=== PATIENT | female | born 1935 | race Caucasian/White ===

== ENCOUNTER 2018-09-10 21:07 | Inpatient (IN) | payer MEDICARE, OTHER ==
[~2018-09-10] VITALS: Ht 167.6 cm; Wt 50.4 kg
[~2018-09-10 21:07] MED LIST: ASPIRIN81 M1; BETOPTIC S10 ML; LABETALOL HCL100 MG; LIPITOR20 MG; OSTERA TABLET1 EACH; PAXIL; SEROQUEL25 MG; STALEVO 100 TAB1 TAB; SYNTHROID25 MCG; XALATAN2.5 ML; ZOFRAN8 MG
--- OUTSIDE RECORDS SUMMARY | 2018-09-10 21:10 | XMS REPORT | Clinical Summary ---
Author Author [facility] Organization [facility] Address Unknown Phone Unavailable Care Team Providers Care Water Mangle Tender Name Role Phone Ike De Leon MD PCP Unavailable Allergies Active Allergy Reactions Severity Noted Date Comments Artane 07/02/2016 Codeine GI Intolerance 04/14/2016 Current Medications Prescription Sig. Disp. Refills Start End Date Status Date brinzolamide (AZOPT) 1 % 1 drop 3 (three) times a Active ophthalmic suspension day. latanoprost (XALATAN) Administer 1 drop to both Active 0.005 % ophthalmic eyes 2 (two) times a day. solution loratadine (CLARITIN) 10 Take 10 mg by mouth Active mg tablet daily. QUEtiapine (SEROquel) 25 Take 25 mg by mouth 2 Active MG tablet (two) times a day. docusate sodium (COLACE) Take by mouth 2 (two) Active 50 MG capsule times a day. POLYETHYLENE GLYCOL 3350 Take 15 mL by mouth daily Active (MIRALAX ORAL) before breakfast. trimethobenzamide (TIGAN) Take 1 capsule po 2-3 270 capsule 3 12/11/19 Active 300 mg capsule times daily 17 PYRIDOXINE HCL, VITAMIN Take 1 tablet by mouth Active B6, (VITAMIN B-6 ORAL) daily. Strength states 2500 units. VITAMIN B COMPLEX ORAL Take 1 tablet by mouth 2 Active (two) times a day. ondansetron (ZOFRAN) 8 MG Take 8 mg by mouth daily. Active tablet dextromethorphan-quinidin Take 1 capsule by mouth 2 180 capsule 3 03/04/20 Active e (NUEDEXTA) 20-10 mg (two) times a day. 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 Please 1 each 0 03/19/20 Active provide with custom 18 wheelchair to allow for frequent position changes carbidopa-levodopa Take 1 tablet by mouth 4 360 tablet 3 03/19/20 03/19/20 Active (SINEMET) 25-100 mg per (four) times a day. 18 19 tablet cholecalciferol, vitamin Take 1 tablet (1,000 90 tablet 3 03/26/20 03/26/20 Active D3, (VITAMIN D3) 1,000 Units total) by mouth 18 19 unit tablet daily. clonAZEPAM (KlonoPIN) 0.5 Take 1 tablet (0.5 mg 180 tablet 0 04/21/20 Active MG tablet total) by mouth 2 (two) 18 times a day as needed for anxiety for up to 90 days. PARoxetine CR (PAXIL-CR) Take 1 tablet (25 mg 90 tablet 3 05/13/20 05/13/20 Active 25 MG 24 hr tablet total) by mouth every 18 19 morning. COUMADIN 1 mg tablet Take 2 tablets (2 mg 180 tablet 2 08/04/20 Active total) by mouth daily. 18 omeprazole (PriLOSEC) 20 Take 1 capsule (20 mg 270 capsule 2 08/04/20 Active MG capsule total) by mouth 3 (three) 18 times a day. levothyroxine (SYNTHROID, Take 1 tablet (25 mcg 90 tablet 2 08/04/20 Active LEVOXYL) 25 mcg tablet total) by mouth every 18 morning. pimavanserin (NUPLAZID) Take 2 tablets (34 mg 60 tablet 6 08/30/20 Active 17 mg tablet tablet total) by mouth daily. 18 PIMAVANSERIN TARTRATE Take 34 mg by mouth 08/30/20 Discontin (NUPLAZID ORAL) daily. 18 ued COUMADIN 1 mg tablet Take 2 tablets (2 mg 180 tablet 3 09/22/20 08/04/20 Discontin total) by mouth daily. 16 18 ued dextromethorphan-quinidin Take 1 capsule by mouth 2 180 capsule 5 01/05/20 03/04/20 Discontin e (NUEDEXTA) 20-10 mg (two) times a day. 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 clonAZEPAM (KlonoPIN) 0.5 Take 1 tablet (0.5 mg 180 tablet 0 05/06/20 10/23/20 Discontin MG tablet total) by mouth 2 (two) 17 17 ued times a day as needed for anxiety for up to 90 days. levothyroxine (SYNTHROID, Take 1 tablet (25 mcg 90 tablet 3 05/13/20 12/23/19 Discontin LEVOXYL) 25 mcg tablet total) by mouth every 17 18 ued morning. cholecalciferol (VITAMIN Take 1 capsule (10,000 24 capsule 3 05/14/20 10/07/20 Discontin D3) 10,000 unit capsule Units total) by mouth 2 17 17 ued (two) times a week. UNABLE TO FIND nudexta / twice a day 10/07/20 Discontin 17 ued ciclopirox (PENLAC) 8 % Apply topically nightly. 3 Bottle 3 06/10/20 06/10/20 solutionIndications: 17 18 Onychomycosis of toenail omeprazole (PriLOSEC) 20 Take 20 mg by mouth 2 03/26/20 Discontin MG capsule (two) times a day. 18 ued carbidopa-levodopa Take 1 tablet by mouth 3 270 tablet 3 07/20/20 12/08/19 Discontin (SINEMET) 25-100 mg per (three) times a day. 17 18 ued tablet clonAZEPAM (KlonoPIN) 0.5 Take 1 tablet (0.5 mg 180 tablet 0 10/23/20 04/21/20 Discontin MG tablet total) by mouth 2 (two) 17 18 ued times a day as needed for anxiety for up to 90 days. carbidopa-levodopa Take 1 tablet by mouth 4 40 tablet 0 12/08/19 03/19/20 Discontin (SINEMET) 25-100 mg per (four) times a day. 18 18 ued tablet levothyroxine (SYNTHROID, Take 1 tablet (25 mcg 15 tablet 0 12/23/19 01/31/20 Discontin LEVOXYL) 25 mcg tablet total) by mouth every 18 18 ued morning. levothyroxine (SYNTHROID, Take 1 tablet (25 mcg 15 tablet 0 02/01/20 08/04/20 Discontin LEVOXYL) 25 mcg tablet total) by mouth every 18 18 ued morning. wheelchair device 1 Units daily. 1 each 0 03/19/20 03/19/20 Discontin 18 18 ued warfarin (COUMADIN) 1 MG Take 1 tablet (1 mg 90 tablet 1 03/23/20 08/04/20 Discontin tablet total) by mouth daily. 18 18 ued omeprazole (PriLOSEC) 20 Take 1 capsule (20 mg 180 capsule 3 03/26/20 08/04/20 Discontin MG capsule total) by mouth 2 (two) 18 18 ued times a day. nitrofurantoin, Take 1 capsule (100 mg 14 capsule 0 05/03/20 05/10/20 macrocrystal-monohydrate, total) by mouth 2 (two) 18 18 (MACROBID) 100 MG capsule times a day for 7 days. nitrofurantoin Take 1 capsule (100 mg 14 capsule 0 06/18/20 06/25/20 (MACRODANTIN) 100 MG total) by mouth 2 (two) 18 18 capsule times a day for 7 days. cephalexin (KEFLEX) 500 Take 1 capsule (500 mg 20 capsule 0 06/27/20 07/07/20 MG capsule total) by mouth 2 (two) 18 18 times a day for 10 days. nitrofurantoin Take 1 capsule (100 mg 14 capsule 0 08/03/20 08/10/20 (MACRODANTIN) 100 MG total) by mouth 2 (two) 18 18 capsule times a day for 7 days. Active Problems Problem Noted Date Other dysphagia 03/19/2018 Decubitus ulcer of right upper back, stage 2 12/23/2017 Decubitus ulcer of right elbow, stage 1 12/23/2017 Chronic pain of right ankle 09/25/2017 Syncope 07/14/2017 Onychomycosis of toenail 06/10/2017 Decubitus ulcer of left buttock, stage 2 05/13/2017 Chronic atrial fibrillation (HCC) 03/06/2017 Wheelchair bound 10/16/2016 Long-term (current) use of anticoagulants 09/22/2016 Dementia 08/21/2016 Psychosis (HCC) 08/21/2016 Parkinson's disease (HCC) 08/21/2016 Dysphagia 08/21/2016 Visual hallucinations 08/21/2016 Weight loss 04/14/2016 Visual problems 04/14/2016 Anxiety 04/14/2016 Depression 04/14/2016 Heat intolerance 04/14/2016 Cold intolerance 04/14/2016 Indigestion 04/14/2016 Nausea 04/14/2016 Parkinson's disease dementia (HCC) 04/14/2016 Encounters Date Type Specialty Care Team Description 09/09/2018 Telephone Sports Medicine Nelida Curry MA 08/30/2018 Telephone Neurology Sapna Brown MD 08/18/2018 Office Visit Ike Shell MD 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) (Primary Dx); Chronic atrial fibrillation (HCC) 08/05/2018 Telephone Sports Medicine Ricci Rush MA 08/04/2018 Refill Ike Shell MD 08/03/2018 Telephone Sports Nelida Heredia MA 08/03/2018 Orders Only Ike Shell MD 08/02/2018 Orders Only Ike Shell MD Abnormal urine (Primary Dx) 07/21/2018 Office Visit Ike Shell MD Dementia due to Parkinson's disease with behavioral disturbance (Primary Dx); Long-term (current) use of anticoagulants 07/14/2018 Telephone Sports Ricci Britt MA 06/27/2018 Documentation Ike Shell MD 06/25/2018 Telephone Sports Medicine Nelida Curry MA 06/25/2018 Telephone Sports Nelida Heredia MA 06/24/2018 Telephone Neurology Sapna Brown MD 06/22/2018 Telephone Sports Nelida Heredia MA 06/18/2018 Orders Only Ike Shell MD 06/17/2018 Office Visit Ike Shell MD Fever, unspecified fever cause (Primary Dx); Dementia due to Parkinson's disease with behavioral disturbance 05/21/2018 Office Visit Ike Shell MD Dementia due to Parkinson's disease with behavioral disturbance (Primary Dx) 05/13/2018 Orders Only Ike Shell MD 05/05/2018 Hospital Radiology Ike De Leon MD Other dysphagia Encounter 05/03/2018 Documentation Ike Shell MD 05/03/2018 Orders Only Ike Shell MD Dysuria (Primary Dx) 04/30/2018 Telephone Sports Medicine Nelida Curry, [place] 04/23/2018 Office Visit Sports Ike Gold MD Dementia due to Parkinson's disease with behavioral disturbance (Primary Dx); Primary hypothyroidism 04/21/2018 Refill Sports Medicine Ricci Rush, RAIZA 03/26/2018 Orders Only Ike Shell MD 03/23/2018 Refill Sports Medicine Nelida Curry [place] 03/19/2018 Office Visit Sports Ike Gold MD Other dysphagia (Primary Dx); Dementia due to Parkinson's disease with behavioral disturbance 03/19/2018 Orders Only Ike Shell MD 03/10/2018 Office Visit Neurology Sapna Brown MD Parkinson's disease (Primary Dx); Dementia due to Parkinson's disease without behavioral disturbance; Visual hallucinations 03/04/2018 Documentation Ike Shell MD 02/01/2018 Telephone Neurology Sapna Brown MD 01/30/2018 Refill Ike Shell MD 01/15/2018 Office Visit Ike Shell MD Dementia due to Parkinson's disease with behavioral disturbance (Primary Dx); Decubitus ulcer of right upper back, stage 2; Decubitus ulcer of right elbow, stage 1 12/23/2017 Office Visit Ike Shell MD Dementia due to Parkinson's disease with behavioral disturbance (Primary Dx); Decubitus ulcer of left buttock, stage 2; Decubitus ulcer of right upper back, stage 2; Decubitus ulcer of right elbow, stage 1 12/08/2017 Orders Only Ike Shell MD 12/03/2017 Telephone Sports Medicine Nelida Curry, [place] 11/23/2017 Office Visit Ike Shell MD Dementia due to Parkinson's disease with behavioral disturbance (Primary Dx); Chronic atrial fibrillation; Decubitus ulcer of left buttock, stage 2 10/23/2017 Office Visit Ike Shell MD Dementia due to Parkinson's disease with behavioral disturbance (Primary Dx); Chronic atrial fibrillation 10/23/2017 Orders Only Ike Shell MD 10/07/2017 Office Visit Neurology Sapna Brown MD Parkinson's disease (Primary Dx); Dementia due to Parkinson's disease without behavioral disturbance; Visual hallucinations 09/25/2017 Office Visit Sports Ike Gold MD Dementia due to Parkinson's disease with behavioral disturbance (Primary Dx); Chronic atrial fibrillation; Chronic pain of right ankle after 09/09/2017 Immunizations Name Dates Previously Given Next Due Influenza, Unspecified 11/09/2013 Pneumococcal, Unspecified 11/09/2012 Family History Medical History Relation Name Comments Heart disease Father Anxiety disorder Mother Relation Name Status Comments Father Mother Social History Tobacco Use Types Packs/Day Years Used Date Never Smoker Smokeless Tobacco: Never Used Comments: non smoker Alcohol Use Drinks/Week oz/Week Comments No none Sex Assigned at Date Recorded Not on file Last Filed Vital Signs Vital Sign Reading Time Taken Blood Pressure 128/66 07/21/2018 1:17 PM CDT Pulse 72 07/21/2018 1:17 PM CDT Temperature 36.7 C (98 F) 07/21/2018 1:17 PM CDT Respiratory Rate 20 08/18/2018 1:05 PM CDT Oxygen Saturation - - Inhaled Oxygen - - Concentration Weight 54.8 kg (120 lb 12.8 oz) 03/10/2018 12:55 PM CDT Height - - Body Mass Index 17.84 03/10/2018 12:55 PM CDT Plan of Treatment Date Type Specialty Care Team Description 09/15/2018 [place] [address] [place] [address] 09/16/2018 Office Visit Neurology Sapna Brown MD [address] [facility] [address] [place] [address] Health Maintenance Due Date Last Done Comments SHINGRIX VACCINE (#1) 1984 ZOSTER VACCINE 1994 PNEUMOCOCCAL 1999 POLYSACCHARIDE VACCINE AGE 65 AND OVER PNEUMOCOCCAL-13 1999 INFLUENZA VACCINE 06/09/2018 11/09/2013 Procedures Procedure Name Priority Date/Time Associated Diagnosis Comments URINALYSIS, AUTOMATED Routine 08/02/2018 Abnormal urine Results for this WITH MICROSCOPY 11:49 AM CDT procedure are in the results section. URINE CULTURE Routine 08/02/2018 Abnormal urine Results for this 11:49 AM CDT procedure are in the results section. MICROSCOPIC EXAMINATION Routine 06/17/2018 Results for this 3:28 PM CDT procedure are in the results section. URINALYSIS, AUTOMATED Routine 06/17/2018 Fever, unspecified fever Results for this WITH MICROSCOPY 3:28 PM CDT cause procedure are in the results section. URINE CULTURE Routine 06/17/2018 Fever, unspecified fever Results for this 3:24 PM CDT cause procedure are in the results section. FL MODIFIED BARIUM Routine 05/05/2018 Other dysphagia Results for this SWALLOW 1:35 PM CDT procedure are in the results section. URINALYSIS, AUTOMATED STAT 05/03/2018 Dysuria Results for this WITH MICROSCOPY 3:22 PM CDT procedure are in the results section. URINE CULTURE Routine 05/03/2018 Dysuria Results for this 3:22 PM CDT procedure are in the results section. after 09/09/2017 Results * Urinalysis, automated with microscopy (08/02/2018 11:49 AM) Only the most recent of 3 results within the time period is included. Color, UA YELLOW YELLOW [facility] [place] Appearance TURBID (A) CLEAR [facility] Specific gravity, urine 1.025 1.001 - 1.035 [facility] [place] pH, urine 5.5 5.0 - 8.0 [facility] [place] Glucose, urine NEGATIVE NEGATIVE [facility] [place] Bilirubin, UA NEGATIVE NEGATIVE [facility] [place] Ketones, UA NEGATIVE NEGATIVE [facility] [place] Occult blood, urine NEGATIVE NEGATIVE [facility] [place] Protein, UA NEGATIVE NEGATIVE [facility] [place] Nitrite, UA NEGATIVE NEGATIVE [facility] [place] Leukocyte esterase, UA 3+ (A) NEGATIVE [facility] [place] WBC, UA > OR=60 (A) < OR=5 /HPF [facility] [place] RBC, UA 0-2 < OR=2 /HPF [facility] [place] Squamous epithelial 6-10 (A) < OR=5 /HPF [facility] cells, UA [place] Bacteria, UA MANY (A) NONE SEEN /HPF [facility] [place] Hyaline casts, UA 0-1 (A) NONE SEEN /LPF [facility] [place] Comment FEW MUCOUS THREADS [facility] [place] Specimen Urine Narrative Performed At FASTING:NO [facility] FASTING: NO Other Results Text Performing Organization Information: Site ID: [id number] Name: [facility] Address: [address] [place] [phone] Director: Kathy Damon Performing Organization Address [facility] Phone Number [facility] [place] [address] [place] [place] [phone] * Urine culture (08/02/2018 11:49 AM) Only the most recent of 3 results within the time period is included. Urine culture SEE NOTE (A) [facility] Comment: [place] CULTURE, URINE, ROUTINE MICRO NUMBER:[id number] TEST STATUS: FINAL SPECIMEN SOURCE: URINE SPECIMEN QUALITY:ADEQUATE RESULT: Greater than 100,000 CFU/mL of Escherichia coli E.coli -------- -------- INT KT AMOX/CLAVULANATE S <=2 AMPICILLIN S 4 AMP/SULBACTAM S <=2 CEFAZOLIN NR<=4 2 CEFEPIME S <=1 CEFTRIAXONE S <=1 CIPROFLOXACIN R >=4 GENTAMICIN S <=1 IMIPENEM S <=0.25 LEVOFLOXACIN R >=8 NITROFURANTOIN S <=16 PIP/TAZOBACTAM S <=4 TOBRAMYCIN S <=1 TRIMETHOPRIM/SULFA S <=20 S=SusceptibleI=Intermediat eR=Resistant*=Not Tested NR=Not ReportedNN=See Therapy Comments THERAPY COMMENTS Note 1: For infections other than uncomplicated UTI caused by E. coli, K. pneumoniae or P. mirabilis: Cefazolin is resistant if KT > or=8 mcg/mL. (Distinguishing susceptible versus intermediate for isolates with KT < or=4 mcg/mL requires additional testing.) Note 2: For uncomplicated UTI caused by E. coli, K. pneumoniae or P. mirabilis: Cefazolin is susceptible if KT <32 mcg/mL and predicts susceptible to the oral agents cefaclor, cefdinir, cefpodoxime, cefprozil, cefuroxime, cephalexin and loracarbef. Specimen Urine Narrative Performed At FASTING:NO [facility] FASTING: NO Other Results Text Performing Organization Information: Site ID: [id number] Name: [facility] Address: [address] [place] [phone] Director: Kathy Damon Performing Organization Address [facility] Phone Number [facility] [place] [address] [place] [place] [phone] * Microscopic Examination (06/17/2018 3:28 PM) WBC, UA 6-10 (A) 0 - 5 /hpf [facility] RBC, UA 0-2 0 - 2 /hpf [facility] Epithelial cells (non 0-10 0 - 10 /hpf [facility] renal) Mucus, UA Present Not Estab. [facility] Bacteria, UA Few None seen/Few [facility] Narrative Performed At Performed at:01 - [facility] [address], [id number] Computing Services Director: Ranjit Tracey MD, Phone:[phone] Performing Organization Address [facility] Phone Number [facility] * FL Modified Barium Swallow (05/05/2018 1:35 PM) Narrative Performed At EXAMINATION:[place] MODIFIED BARIUM SWALLOW [facility] CLINICAL HISTORY:R13.19 Other dysphagia, evaluate for risk of aspiration COMPARISON:None. Radiation dose: 13.8 mGy FINDINGS: The patient swallowed varying consistencies of barium under direct lateral fluoroscopic evaluation. The study was performed in conjunction with speech pathology. IMPRESSION: Thin, nectar and pudding consistency barium was administered. Patient had some difficulty with oral phase of swallowing and bolus formation and ingested small amounts of barium. There was subepiglottic penetration of thin and nectar consistency barium. There was a minimal residual contrast along the anterior wall. There was no aspiration. Please refer to Speech Pathology report for further details. [facility]-[id number] Procedure Note Interface, Radiology Results Incoming - 05/05/2018 3:36 PM CDT EXAMINATION: FL MODIFIED BARIUM SWALLOW CLINICAL HISTORY: R13.19 Other dysphagia, evaluate for risk of aspiration COMPARISON: None. Radiation dose: 13.8 mGy FINDINGS: The patient swallowed varying consistencies of barium under direct lateral fluoroscopic evaluation. The study was performed in conjunction with speech pathology. IMPRESSION: Thin, nectar and pudding consistency barium was administered. Patient had some difficulty with oral phase of swallowing and bolus formation and ingested small amounts of barium. There was subepiglottic penetration of thin and nectar consistency barium. There was a minimal residual contrast along the anterior wall. There was no aspiration. Please refer to Speech Pathology report for further details. [facility]-[id number] Performing Organization Address [facility]/State/Zipcode Phone Number SARAH CONLEY [address] [place] [address] after 09/09/2017 Insurance Payer Benefit Subscriber ID Type Phone Address Plan / Group [facility] xxxxxxxxxxx Home:
--- OUTSIDE RECORDS SUMMARY | 2018-09-10 21:12 | XMS REPORT | Summary of Care ---
Author Author [facility] Organization [facility] Address Unknown Phone Unavailable Encounter HQ Kevin(ROSALVA) [id number] Date(s): 06/15/15 - 06/20/15 [facility] [address] [employer] provided by [facility] [place] [address]- Discharge Disposition: Home Attending Physician: Boy Miller MD Admitting Physician: Ayse Steel DO Referring Physician: Haja Landis MD Vital Signs 1 2 3 Most recent to oldest [Reference Range]: 152.4 cm (06/15/15 6:08 PM) Height 1 2 3 Most recent to oldest [Reference Range]: 97.5 DegF (06/20/15 11:15 AM) 97.8 DegF (06/19/15 3:06 PM) 98.3 DegF (06/19/15 11:20 AM) Temperature Oral [96.4-99.1 DegF] 1 2 3 Most recent to oldest [Reference Range]: 123/76 mmHg (06/20/15 7:32 AM) 128/97 mmHg (06/20/15 6:07 AM) Blood Pressure [90-140/60-90 mmHg] 101 mmHg (06/20/15 12:06 AM) Systolic Blood Pressure [90-140 mmHg] 1 2 3 Most recent to oldest [Reference Range]: 55 mmHg *LOW* (06/20/15 11:15 AM) Diastolic Blood Pressure [60-90 mmHg] 1 2 3 Most recent to oldest [Reference Range]: 16 BRMIN (06/20/15 11:15 AM) 18 BRMIN (06/20/15 7:32 AM) 18 BRMIN (06/20/15 6:07 AM) Respiratory Rate [14-20 BRMIN] 1 2 3 Most recent to oldest [Reference Range]: 60 bpm (06/20/15 11:15 AM) 62 bpm (06/20/15 7:32 AM) 67 bpm (06/20/15 6:07 AM) Peripheral Pulse Rate [60-100 bpm] 1 2 3 Most recent to oldest [Reference Range]: 58.636 kg (06/15/15 6:08 PM) Weight 1 2 3 Most recent to oldest [Reference Range]: 25.25 m2 (06/15/15 6:08 PM) Body Mass Index Problem List Condition Effective Dates Status Health Status Informant Anxiety(Confirmed) Resolved Hypothyroidism(Confi Resolved rmed) Parkinsons Resolved disease(Confirmed) Allergies, Adverse Reactions, Alerts Substance Reaction Severity Status Codeine Sulfate Active Medications Afrin 0.025% nasal solution Route: NASAL, PRN, Drug form: SPRY, PRN Bleeding, Start date: 06/15/15 22:18:00, Duration: 2 day, Stop date: 06/17/15 22:17:00 Notes: (Same as: Afrin) Start Date: 06/15/15 Stop Date: 06/17/15 Status: Completed aspirin 81 mg, 1 tab, Route: PO, Drug form: ECTAB, Daily, Dosing Weight 58.636, kg, Star t date: 06/16/15 9:00:00, Duration: 30 day, Stop date: 07/15/15 9:00:00, Patient 's Own Meds Notes: Do not crush or chew.(Same As: Ecotrin) Start Date: 06/16/15 Stop Date: 06/18/15 Status: Discontinued aspirin 81 mg tablet, enteric coated 81 mg=1 tab, PO, Daily Start Date: 06/15/15 Stop Date: 06/19/15 Status: Discontinued Augmentin 875 mg oral tablet 1 tab, Route: PO, Drug Form: TAB, Dosing Weight 58.636, kg, Q12H, Start date: 9:00:00, Duration: 7 day, Stop date: 06/22/15 21:00:00 Notes: With food.(Same as: Augmentin 875) Start Date: 06/16/15 Stop Date: 06/20/15 Status: Discontinued Azopt 1 drp, Route: BOTH EYES, BID, Drug form: SUSP, Start date: 06/16/15 17:00:00, Du ration: 30 day, Stop date: 07/16/15 9:00:00 Notes: Non-Formulary Drug. (Same As: Azopt) Start Date: 06/16/15 Stop Date: 06/20/15 Status: Discontinued bacitracin topical 1 appl, Route: TOP, Q6H, Drug form: OINT, PRN Bleeding, Start date: 06/15/15 18: 12:00, Stop date: 07/15/15 18:11:00, APPLY TO CIRCUMCISION SITE; Dosing Special Instructions: APPLY TO CIRCUMCISION SITE; Dosing Start Date: 06/15/15 Stop Date: 06/20/15 Status: Discontinued brinzolamide ophthalmic 1 drp, Route: BOTH EYES, BID, Start date: 06/16/15 9:00:00, Duration: 30 day, St op date: 07/15/15 17:00:00 Start Date: 06/16/15 Stop Date: 06/16/15 Status: Deleted brinzolamide ophthalmic 1 drp, BOTH EYES, BID, 0 Refill(s) Start Date: 06/15/15 Status: Ordered carbidopa-levodopa 25 mg-100 mg oral tablet, disintegrating 2 tab, PO, BID, 2 tabs bid @ 8:00 am and 8:00 pm 1 tab bid @noon and 4:00pm, # 90 tab, 0 Refill(s) Special Instructions: 2 tabs bid @ 8:00 am and 8:00 pm1 tab bid @noon and 4:00pm Start Date: 06/15/15 Status: Ordered Claritin 10 mg oral tablet 10 mg=1 tab, PO, Daily Start Date: 06/15/15 Status: Ordered docusate 100 mg, 1 cap, Route: PO, Drug form: CAP, BID, Dosing Weight 63.636, kg, Start d ate: 06/15/15 17:00:00, Duration: 30 day, Stop date: 07/15/15 9:00:00 Notes: (Same as: Colace) (Do Not Crush) Start Date: 06/15/15 Stop Date: 06/20/15 Status: Discontinued docusate sodium 50 mg, PO, BID, 0 Refill(s) Start Date: 06/15/15 Stop Date: 06/15/15 Status: Discontinued docusate sodium 50 mg oral capsule 50 mg=1 cap, PO, TID, PRN Constipation Start Date: 06/15/15 Status: Ordered enoxaparin 100 mg/mL subcutaneous solution 90 mg, SUB-Q, Daily, # 630 mg, 0 Refill(s) Start Date: 06/19/15 Stop Date: 06/26/15 Status: Ordered Heparin 40 unit/kg Bolus (Heparin Dosing Weight) Route: IVP, PRN, 2,000 unit, 2 mL, Drug form: INJ, PRN, Heparin Protocol, Start date: 06/18/15 3:35:00 Stop date: 07/18/15 3:34:00, 30 day Start Date: 06/18/15 Stop Date: 06/18/15 Status: Discontinued Heparin 80 unit/kg Bolus (Heparin Dosing Weight) Route: IVP, PRN, 4,100 unit, 4.1 mL, Drug form: INJ, PRN, Heparin Protocol, Star t date: 06/18/15 3:35:00 Stop date: 07/18/15 3:34:00, 30 day Start Date: 06/18/15 Stop Date: 06/18/15 Status: Discontinued heparin additive 25,000 unit [18 unit/kg/hr] + Premix Diluent Dextrose 5% 500 mL 500 mL, Rate: 18.27 ml/hr, Infuse over: 27.4 hr, Route: IV, Dosing Weight 50.75 kg, Total Volume: 500 mL, Start date: 06/16/15 4:09:00, Duration: 30 day, Stop d ate: 07/16/15 4:08:00 Start Date: 06/16/15 Stop Date: 06/18/15 Status: Discontinued heparin additive 25,000 unit [18 unit/kg/hr] + Premix Diluent Dextrose 5% 500 mL 500 mL, Rate: 18.27 ml/hr, Infuse over: 27.4 hr, Route: IV, Dosing Weight 50.75 kg, Total Volume: 500 mL, Start date: 06/18/15 3:35:00, Duration: 30 day, Stop d ate: 07/18/15 3:34:00 Start Date: 06/18/15 Stop Date: 06/18/15 Status: Discontinued KlonoPIN 0.25 mg, PO, PRN, 0 Refill(s) Start Date: 06/15/15 Status: Ordered KlonoPIN 0.25 mg, 0.5 tab, Route: PO, Drug form: TAB, Q8H, Dosing Weight 63.636, kg, PRN Anxiety, Start date: 06/15/15 17:31:00, Duration: 30 day, Stop date: 07/15/15 17 :30:00 Notes: (Same As: KlonoPIN) Start Date: 06/15/15 Stop Date: 06/20/15 Status: Discontinued Lovenox 90 mg, Route: SUB-Q, Drug form: INJ, [id number], Dosing Weight 58.636, kg, Start d ate: 06/19/15 12:00:00, Duration: 30 day, Stop date: 07/19/15 0:00:00 Start Date: 06/19/15 Stop Date: 06/19/15 Status: Canceled Lovenox 30 mg, 0.3 mL, Route: SUB-Q, Drug form: INJ, ONCE, Dosing Weight 58.636, kg, Sta rt date: 06/19/15 11:47:00, Stop date: 06/19/15 11:47:00 Notes: (Same as: Lovenox) Start Date: 06/19/15 Stop Date: 06/19/15 Status: Deleted Lovenox 30 mg, 0.3 mL, Route: SUB-Q, Drug form: INJ, ONCE, Start date: 06/19/15 13:00:00 , Stop date: 06/19/15 13:00:00 Notes: (Same as: Lovenox) Start Date: 06/19/15 Stop Date: 06/19/15 Status: Completed Lovenox 90 mg, SUB-Q, Daily, 0 Refill(s) Start Date: 06/19/15 Stop Date: 06/19/15 Status: Deleted Lovenox 60 mg, 0.6 mL, Route: SUB-Q, Drug form: INJ, [id number], Dosing Weight 58.636, kg, Start date: 06/18/15 19:00:00, Duration: 30 day, Stop date: 07/18/15 7:00:00 Notes: Nurse to ensure documentation of patient education per anticoagulation po licy. (Same as: Lovenox) Start Date: 06/18/15 Stop Date: 06/19/15 Status: Discontinued Lovenox 90 mg, 0.9 mL, Route: SUB-Q, Drug form: INJ, [id number], Dosing Weight 58.636, kg, Start date: 06/20/15 13:00:00, Duration: 30 day, Stop date: 07/19/15 13:00:00 Notes: Nurse to ensure documentation of patient education per anticoagulation po licy.(Same as: Lovenox) Start Date: 06/20/15 Stop Date: 06/20/15 Status: Discontinued magnesium oxide 400 mg, 1 tab, Route: PO, Drug form: TAB, BID, Dosing Weight 58.636, kg, Start d ate: 06/18/15 9:00:00, Duration: 2 doses or times, Stop date: 06/18/15 17:00:00 Notes: (Same as: Mag-Ox 400)Magnesium oxide [id number] elemental magnesiumDose= ____mg magnesium oxide (___mg elemental magnesium) Start Date: 06/18/15 Stop Date: 06/18/15 Status: Completed magnesium sulfate 2 gm in Water 50 ml 2 gm, 50 mL, Route: IVPB, Drug form: INJ, ONCE, Dosing Weight 58.636, kg, Start date: 06/17/15 6:53:00, Duration: 2 hr, Stop date: 06/17/15 6:53:00 Start Date: 06/17/15 Stop Date: 06/17/15 Status: Completed metoprolol extended release Route: PO, Drug form: TAB, Q8Hnow, Start date: 06/16/15 22:00:00, Duration: 30 d ay, Stop date: 07/16/15 14:00:00 Notes: (Same as: Lopressor) 12.5mg=1/4 X 50 mg tab. Start Date: 06/16/15 Stop Date: 06/17/15 Status: Discontinued metoprolol tartrate 12.5 mg, 1 tab, Route: PO, Drug form: TAB, Q12H, Dosing Weight 58.636, kg, Start date: 06/17/15 9:00:00, Duration: 30 day, Stop date: 07/16/15 21:00:00 Notes: (Same as: Lopressor) 12.5mg=1/4 X 50 mg tab. Start Date: 06/17/15 Stop Date: 06/20/15 Status: Discontinued metoprolol tartrate 12.5 mg, 1 tab, Route: PO, Drug form: TAB, Q8H, Dosing Weight 58.636, kg, Start date: 06/17/15 8:00:00, Duration: 30 day, Stop date: 07/17/15 0:00:00 Notes: (Same as: Lopressor) 12.5mg=1/4 X 50 mg tab. Start Date: 06/17/15 Stop Date: 06/17/15 Status: Canceled MiraLax 17 gm, PO, Daily, 0 Refill(s) Start Date: 06/15/15 Status: Ordered MiraLax 17 gm, 1 pkt, Route: PO, Drug form: PWDR, Daily, Dosing Weight 63.636, kg, Start date: 06/15/15 19:30:00, Duration: 30 day, Stop date: 07/15/15 9:00:00 Start Date: 06/15/15 Stop Date: 06/20/15 Status: Discontinued Nasal Saline 0.65% solution 2 spray, Route: NASAL, Q4H, Drug form: SOLN, Start date: 06/15/15 20:00:00, Dura tion: 30 day, Stop date: 07/15/15 16:00:00 Notes: (Same as: [place], Deep Sea Nasal [place]). Start Date: 06/15/15 Stop Date: 06/20/15 Status: Discontinued Nasal Saline 0.65% solution 2 drp, Route: NASAL, Q2H, Start date: 06/15/15 20:00:00, Duration: 30 day, Stop date: 07/15/15 18:00:00 Start Date: 06/15/15 Stop Date: 06/15/15 Status: Canceled [place] 5/325 oral tablet 1 tab, Route: PO, Drug Form: TAB, Dosing Weight 63.636, kg, Q6H, PRN Pain Score 1-3, Start date: 06/15/15 17:32:00, Duration: 30 day, Stop date: 07/15/15 17:31: 00 Start Date: 06/15/15 Stop Date: 06/15/15 Status: Discontinued normal saline 0.9% IV 1,000 mL 1,000 mL, Rate: 75 ml/hr, Infuse over: 13.3 hr, Route: IV, Dosing Weight 63.636 kg, Total Volume: 1,000, Start date: 06/15/15 16:50:00, Duration: 30 day, Stop d ate: 07/15/15 16:49:00 Start Date: 06/15/15 Stop Date: 06/17/15 Status: Discontinued Nuedexta 1 cap, PO, Daily, 0 Refill(s) Start Date: 06/15/15 Status: Ordered omeprazole 20 mg, Route: PO, Daily, Dosing Weight 63.636, kg, Start date: 06/16/15 9:00:00, Duration: 30 day, Stop date: 07/15/15 9:00:00 Start Date: 06/16/15 Stop Date: 06/15/15 Status: Deleted omeprazole 20 mg, PO, Daily, 0 Refill(s) Start Date: 06/15/15 Stop Date: 06/15/15 Status: Discontinued omeprazole PO, Daily, 0 Refill(s) Start Date: 06/15/15 Stop Date: 06/15/15 Status: Discontinued omeprazole 20 mg oral enteric coated tablet 20 mg=1 tab, PO, BID Start Date: 06/15/15 Status: Ordered ondansetron 4 mg, 2 mL, Route: IVP, Drug form: INJ, Q6H, Dosing Weight 63.636, kg, PRN Nause a & Vomiting, Start date: 06/15/15 16:48:00, Duration: 30 day, Stop date: 07/15/15 16:47:00 Notes: (Same as: Caren) MEDICATION WASTE Product Size: 4 mgProduct Was barry: ___ mg Start Date: 06/15/15 Stop Date: 06/20/15 Status: Discontinued oxymetazoline nasal 0.05% spray 2 spray, Route: NASAL, Q6H, Drug form: SPRY, PRN Bleeding, Start date: 06/15/15 18:13:00, Duration: 3 day, Stop date: 06/18/15 18:12:00 Notes: (Same as: Adelia) Start Date: 06/15/15 Stop Date: 06/18/15 Status: Completed oxymetazoline nasal 0.05% spray 2 spray, Route: NASAL, Q12H, Drug form: SPRY, PRN Nasal Congestion, Start date: 06/15/15 18:11:00, Duration: 3 day, Stop date: 06/18/15 18:10:00 Start Date: 06/15/15 Stop Date: 06/15/15 Status: Discontinued PARoxetine 25 mg, 2.5 tab, Route: PO, Drug form: TAB, QAM, Dosing Weight 58.636, kg, Start date: 06/16/15 9:00:00, Duration: 30 day, Stop date: 07/15/15 9:00:00 Notes: (Same as: Paxil) Start Date: 06/16/15 Stop Date: 06/20/15 Status: Discontinued PARoxetine 25 mg oral tablet, extended release 25 mg=1 tab, PO, QAM, # 30 tab, 0 Refill(s) Start Date: 06/15/15 Status: Ordered potassium chloride 40 mEq, 2 tab, Route: PO, Drug form: ERTAB, ONCE, Dosing Weight 58.636, kg, Star t date: 06/18/15 7:12:00, Stop date: 06/18/15 7:12:00 Notes: (Same as: K-Dur 20)"Do Not Crush" With food and full glass of water Start Date: 06/18/15 Stop Date: 06/18/15 Status: Completed Protonix 40 mg, 1 tab, Route: PO, Drug form: ECTAB, Before Breakfast, Start date: 5 7:30:00, Duration: 30 day, Stop date: 07/15/15 7:30:00 Notes: Tablet should not be chewed or crushed.(Same as: Protonix) Start Date: 06/16/15 Stop Date: 06/20/15 Status: Discontinued QUEtiapine 25 mg, 1 tab, Route: PO, Drug form: TAB, BID, Dosing Weight 58.636, kg, Start da te: 06/16/15 9:00:00, Duration: 30 day, Stop date: 07/15/15 17:00:00 Notes: (Same as: SEROquel) Start Date: 06/16/15 Stop Date: 06/20/15 Status: Discontinued QUEtiapine 25 mg, PO, BID, 0 Refill(s) Start Date: 06/15/15 Stop Date: 06/15/15 Status: Discontinued SEROquel 25 mg, 1 tab, Route: PO, Drug form: TAB, ONCE, Dosing Weight 58.636, kg, Start d ate: 06/16/15 0:43:00, Stop date: 06/16/15 0:43:00 Notes: (Same as: SEROquel) Start Date: 06/16/15 Stop Date: 06/16/15 Status: Completed SEROquel 25 mg oral tablet 50 mg=2 tab, PO, TID Start Date: 06/15/15 Status: Ordered Sinemet 25 mg-100 mg oral tablet 2 tab, Route: PO, Drug Form: TAB, Dosing Weight 58.636, kg, QID, Start date: 05/23 21:00:00, Duration: 30 day, Stop date: 07/15/15 17:00:00, Patient's Own Me ds Notes: Take with milk or food. (Same As: Sinemet) Start Date: 06/15/15 Stop Date: 06/20/15 Status: Discontinued Synthroid 25 microgram, 1 tab, Route: PO, Drug form: TAB, [id number], Dosing Weight 58.636, kg , Start date: 06/16/15 6:30:00, Duration: 30 day, Stop date: 07/15/15 6:30:00 Notes: Take 1 hour before or 2 hours after meal; Enteral feeds may interefere wi th the absorption of this medication. (Same as:Levothroid) Start Date: 06/16/15 Stop Date: 06/20/15 Status: Discontinued Synthroid 25 mcg (0.025 mg) oral tablet 25 microgram=1 tab, PO, Daily, 0 Refill(s) Start Date: 06/15/15 Status: Ordered Tigan 300 mg, 1 cap, Route: PO, Drug form: CAP, TID, Dosing Weight 58.636, kg, PRN Rene sea & Vomiting, Start date: 06/16/15 12:20:00, Duration: 30 day, Stop date: 07/16/15 12:19:00 Notes: For nausea and vomiting. Start Date: 06/16/15 Stop Date: 06/20/15 Status: Discontinued Tigan 300 mg oral capsule 300 mg=1 cap, PO, TID, # 21 cap, 0 Refill(s) Start Date: 06/15/15 Stop Date: 06/22/15 Status: Ordered Ultram 50 mg oral tablet 50 mg, 1 tab, Route: PO, Drug form: TAB, Q6H, Dosing Weight 63.636, kg, PRN Pain Score 6-10, Priority: Routine, Start date: 06/15/15 17:34:00, Duration: 7 day, Stop date: 06/22/15 17:33:00 Start Date: 06/15/15 Stop Date: 06/20/15 Status: Discontinued warfarin 2.5 mg, 1 tab, Route: PO, Drug form: TAB, Q5PM, Dosing Weight 58.636, kg, Start date: 06/19/15 17:00:00, Duration: 1 doses or times, Stop date: 06/19/15 17:00:0 0 Notes: Nurse to ensure documentation of patient education per anticoagulation po licy.Avoid large intake of vitamin-K containing foods diet.(Same As: Coumadin) Start Date: 06/19/15 Stop Date: 06/19/15 Status: Completed warfarin 2.5 mg, 1 tab, Route: PO, Drug form: TAB, Q5PM, Dosing Weight 58.636, kg, Start date: 06/18/15 17:00:00, Duration: 1 doses or times, Stop date: 06/18/15 17:00:0 0 Notes: Nurse to ensure documentation of patient education per anticoagulation po licy.Avoid large intake of vitamin-K containing foods diet.(Same As: Coumadin) Start Date: 06/18/15 Stop Date: 06/18/15 Status: Completed warfarin 2.5 mg oral tablet 2.5 mg=1 tab, PO, Q5PM, # 30 tab, 0 Refill(s) Start Date: 06/19/15 Stop Date: 06/20/15 Status: Discontinued warfarin 2.5 mg oral tablet 2.5 mg, PO, Daily, # 30 tab, 1 Refill(s) Start Date: 06/20/15 Status: Ordered Xalatan 1 drp, BOTH EYES, Bedtime, 0 Refill(s) Start Date: 06/15/15 Status: Ordered Xalatan 1 drp, Route: BOTH EYES, Bedtime, Drug form: SOLN, Start date: 06/15/15 21:00:00 , Duration: 30 day, Stop date: 07/14/15 21:00:00 Notes: Keep refrigerated. (Same as:Xalatan) Start Date: 06/15/15 Stop Date: 06/20/15 Status: Discontinued Results ELECTROLYTES 1 2 3 Most recent to oldest [Reference Range]: 144 mEq/L (06/20/15 2:56 AM) 146 mEq/L *HI* (06/19/15 4:57 AM) 144 mEq/L (06/18/15 1:29 AM) Sodium Lvl [135-145 mEq/L] 4.2 mEq/L (06/20/15 2:56 AM) 4.6 mEq/L (06/19/15 4:57 AM) 3.5 mEq/L (06/18/15 1:29 AM) Potassium Lvl [3.5-5.1 mEq/L] 109 mEq/L (06/20/15 2:56 AM) 113 mEq/L *HI* (06/19/15 4:57 AM) 111 mEq/L *HI* (06/18/15 1:29 AM) Chloride Lvl [95-109 mEq/L] 26 mEq/L (06/20/15 2:56 AM) 26 mEq/L (06/19/15 4:57 AM) 25 mEq/L (06/18/15 1:29 AM) CO2 [24-32 mEq/L] 13.2 mEq/L (06/20/15 2:56 AM) 11.6 mEq/L (06/19/15 4:57 AM) 11.5 mEq/L (06/18/15 1:29 AM) AGAP [10.0-20.0 mEq/L] CHEM PANEL 1 2 3 Most recent to oldest [Reference Range]: 0.9 mg/dL (06/20/15 2:56 AM) 0.8 mg/dL (06/19/15 4:57 AM) 0.8 mg/dL (06/18/15 1:29 AM) Creatinine Lvl [0.5-1.4 mg/dL] 61 mL/min/1.73m2 1 *NA* (06/20/15 2:56 AM) 70 mL/min/1.73m2 2 *NA* (06/19/15 4:57 AM) 70 mL/min/1.73m2 3 *NA* (06/18/15 1:29 AM) eGFR 23 mg/dL *HI* (06/20/15 2:56 AM) 21 mg/dL (06/19/15 4:57 AM) 21 mg/dL (06/18/15 1:29 AM) BUN [7-22 mg/dL] 71 mg/dL (06/20/15 2:56 AM) 87 mg/dL (06/19/15 4:57 AM) 96 mg/dL (06/18/15 1:29 AM) Glucose Lvl [70-99 mg/dL] 8.6 mg/dL (06/20/15 2:56 AM) 8.3 mg/dL *LOW* (06/19/15 4:57 AM) 8.4 mg/dL *LOW* (06/18/15 1:29 AM) Calcium Lvl [8.5-10.5 mg/dL] 3.4 mg/dL (06/20/15 2:56 AM) 3.5 mg/dL (06/19/15 4:57 AM) 2.7 mg/dL (06/18/15 1:29 AM) Phosphorus [2.5-4.5 mg/dL] 2.1 mg/dL (06/20/15 2:56 AM) 2.0 mg/dL (06/19/15 4:57 AM) 1.7 mg/dL *LOW* (06/18/15 1:29 AM) Magnesium Lvl [1.8-2.4 mg/dL] 1Result Comment: The eGFR is calculated using the CKD-EPI formula. In most young, healthy individuals the eGFR will be >90 mL/min/1.73m2. The eGFR declines with age. An eGFR of 60-89 may be normal in some populations, particularly the elderly, for whom the CKD-EPI formula has not been extensively validated. Use of the eGFR is not recommended in the following populations: Individuals with unstable creatinine concentrations, including patients and those with serious co-morbid conditions. Patients with extremes in muscle mass or diet. The data above are obtained from the National Kidney Disease Education Program ( NKDEP) which additionally recommends that when the eGFR is used in patients with extremes of body mass index for purposes of drug dosing, the eGFR should be mul tiplied by the estimated BMI. 2Result Comment: The eGFR is calculated using the CKD-EPI formula. In most young, healthy individuals the eGFR will be >90 mL/min/1.73m2. The eGFR declines with age. An eGFR of 60-89 may be normal in some populations, particularly the elderly, for whom the CKD-EPI formula has not been extensively validated. Use of the eGFR is not recommended in the following populations: Individuals with unstable creatinine concentrations, including patients and those with serious co-morbid conditions. Patients with extremes in muscle mass or diet. The data above are obtained from the National Kidney Disease Education Program ( NKDEP) which additionally recommends that when the eGFR is used in patients with extremes of body mass index for purposes of drug dosing, the eGFR should be mul tiplied by the estimated BMI. 3Result Comment: The eGFR is calculated using the CKD-EPI formula. In most young, healthy individuals the eGFR will be >90 mL/min/1.73m2. The eGFR declines with age. An eGFR of 60-89 may be normal in some populations, particularly the elderly, for whom the CKD-EPI formula has not been extensively validated. Use of the eGFR is not recommended in the following populations: Individuals with unstable creatinine concentrations, including patients and those with serious co-morbid conditions. Patients with extremes in muscle mass or diet. The data above are obtained from the National Kidney Disease Education Program ( NKDEP) which additionally recommends that when the eGFR is used in patients with extremes of body mass index for purposes of drug dosing, the eGFR should be mul tiplied by the estimated BMI. CARDIAC ENZYMES 1 2 3 Most recent to oldest [Reference Range]: 115 unit/L (06/17/15 1:34 AM) 119 unit/L (06/16/15 8:13 PM) Total CK [12-191 unit/L] 1.6 ng/mL (06/17/15 1:34 AM) 1.6 ng/mL (06/16/15 8:13 PM) CK MB [0.5-3.6 ng/mL] 1.4 (06/17/15 1:34 AM) 1.3 (06/16/15 8:13 PM) CK MB Index [0.0-2.5] <0.010 ng/mL (06/17/15 1:34 AM) <0.010 ng/mL (06/16/15 8:13 PM) Troponin-T [0.000-0.100 ng/mL] <0.02 ng/mL (06/17/15 1:34 AM) <0.02 ng/mL (06/16/15 8:13 PM) Troponin-I [0.00-0.40 ng/mL] THYROID PANEL 1 2 3 Most recent to oldest [Reference Range]: 1.290 uIU/mL (06/16/15 8:13 PM) TSH [0.360-3.740 uIU/mL] PARATHYROID PROFILE 1 2 3 Most recent to oldest [Reference Range]: 1.12 mMol/L (06/18/15 1:29 AM) Ca Ion WB [1.05-1.25 mMol/L] 1.12 mMol/L (06/18/15 1:29 AM) Ca Norm WB [1.05-1.25 mMol/L] URINE AND STOOL 1 2 3 Most recent to oldest [Reference Range]: Clear (06/17/15 2:31 PM) Clear (06/16/15 1:29 AM) UA Turbidity [Clear] Light Yellow *NA* (06/17/15 2:31 PM) Yellow *NA* (06/16/15 1:29 AM) UA Color [Yellow] 6.0 (06/17/15 2:31 PM) 7.0 (06/16/15 1:29 AM) UA pH [5.0-8.0] 1.007 (06/17/15 2:31 PM) 1.016 (06/16/15 1:29 AM) UA Spec Grav [<=1.030] Negative mg/dL *NA* (06/17/15 2:31 PM) Negative mg/dL *NA* (06/16/15 1:29 AM) UA Glucose [Negative mg/dL] Negative (06/17/15 2:31 PM) Trace *ABN* (06/16/15 1:29 AM) UA Blood [Negative] Negative mg/dL *NA* (8/9/15 2:31 PM) Negative mg/dL *NA* (06/16/15 1:29 AM) UA Ketones [Negative mg/dL] Negative mg/dL (06/17/15 2:31 PM) Negative mg/dL (06/16/15 1:29 AM) UA Protein [Negative mg/dL] <=1.0 mg/dL *NA* (06/17/15 2:31 PM) <=1.0 mg/dL *NA* (06/16/15 1:29 AM) UA Urobilinogen [0.1-1.0 mg/dL] Negative *NA* (06/17/15 2:31 PM) Negative *NA* (06/16/15 1:29 AM) UA Bili [Negative] Negative (06/17/15 2:31 PM) Moderate *ABN* (06/16/15 1:29 AM) UA Leuk Est [Negative] Negative (06/17/15 2:31 PM) Negative (06/16/15 1:29 AM) UA Nitrite [Negative] 1 /HPF (06/17/15 2:31 PM) UA WBC [0-5 /HPF] None Seen *NA* (06/17/15 2:31 PM) UA Sq Epi HEMATOLOGY 1 2 3 Most recent to oldest [Reference Range]: 6.1 K/CMM (06/20/15 2:56 AM) 5.9 K/CMM (06/19/15 4:57 AM) 7.4 K/CMM (06/18/15 5:27 AM) WBC [3.7-10.4 K/CMM] 2.88 M/CMM *LOW* (06/20/15 2:56 AM) 2.89 M/CMM *LOW* (06/19/15 4:57 AM) 2.97 M/CMM *LOW* (06/18/15 5:27 AM) RBC [4.20-5.40 M/CMM] 8.7 g/dL *LOW* (06/20/15 2:56 AM) 9.0 g/dL *LOW* (06/19/15 4:57 AM) 9.2 g/dL *LOW* (06/18/15 5:27 AM) Hgb [12.0-16.0 g/dL] 27.4 % *LOW* (06/20/15 2:56 AM) 27.5 % *LOW* (06/19/15 4:57 AM) 27.7 % *LOW* (06/18/15 5:27 AM) Hct [36.0-48.0 %] 95.3 fL (06/20/15 2:56 AM) 95.1 fL (06/19/15 4:57 AM) 93.2 fL (06/18/15 5:27 AM) MCV [80.0-98.0 fL] 30.2 pg (06/20/15 2:56 AM) 31.1 pg *HI* (06/19/15 4:57 AM) 31.0 pg (06/18/15:27 AM) MCH [27.0-31.0 pg] 31.7 g/dL *LOW* (06/20/15 2:56 AM) 32.6 g/dL (06/19/15 4:57 AM) 33.2 g/dL (06/18/15 5:27 AM) MCHC [32.0-36.0 g/dL] 14.6 % *HI* (06/20/15 2:56 AM) 14.7 % *HI* (06/19/15 4:57 AM) 14.3 % (06/18/15 5:27 AM) RDW [11.5-14.5 %] 121 K/CMM *LOW* (06/20/15 2:56 AM) 122 K/CMM *LOW* (06/19/15 4:57 AM) 123 K/CMM *LOW* (06/18/15 5:27 AM) Platelet [133-450 K/CMM] 10.7 fL *HI* (06/20/15 2:56 AM) 10.0 fL (06/19/15 4:57 AM) 9.8 fL (06/18/15 5:27 AM) MPV [7.4-10.4 fL] 65.3 % (06/20/15 2:56 AM) 55.0 % (06/19/15 4:57 AM) 72.5 % (06/18/15 5:27 AM) Segs [45.0-75.0 %] 25.1 % (06/20/15 2:56 AM) 34.5 % (06/19/15 4:57 AM) 19.0 % *LOW* (06/18/15 5:27 AM) Lymphocytes [20.0-40.0 %] 6.8 % (06/20/15 2:56 AM) 7.0 % (06/19/15 4:57 AM) 6.8 % (06/18/15 5:27 AM) Monocytes [2.0-12.0 %] 2.4 % (06/20/15 2:56 AM) 2.9 % (06/19/15 4:57 AM) 1.1 % (06/18/15 5:27 AM) Eosinophils [0.0-4.0 %] 0.4 % (06/20/15 2:56 AM) 0.6 % (06/19/15 4:57 AM) 0.6 % (06/18/15 5:27 AM) Basophils [0.0-1.0 %] 4.0 K/CMM (06/20/15 2:56 AM) 3.3 K/CMM (06/19/15 4:57 AM) 5.4 K/CMM (06/18/15 5:27 AM) Segs-Bands # [1.5-8.1 K/CMM] 1.5 K/CMM (06/20/15 2:56 AM) 2.1 K/CMM (06/19/15 4:57 AM) 1.4 K/CMM (06/18/15 5:27 AM) Lymphocytes # [1.0-5.5 K/CMM] 0.4 K/CMM (06/20/15 2:56 AM) 0.4 K/CMM (06/19/15 4:57 AM) 0.5 K/CMM (06/18/15 5:27 AM) Monocytes # [0.0-0.8 K/CMM] 0.1 K/CMM (06/20/15 2:56 AM) 0.2 K/CMM (06/19/15 4:57 AM) 0.1 K/CMM (06/18/15 5:27 AM) Eosinophils # [0.0-0.5 K/CMM] 16.3 seconds *HI* (06/20/15 2:56 AM) 15.7 seconds *HI* (06/19/15 4:57 AM) 15.7 seconds *HI* (06/18/15 5:27 AM) PT [12.0-14.7 seconds] 1.30 *HI* (06/20/15 2:56 AM) 1.24 *HI* (06/19/15 4:57 AM) 1.24 *HI* (06/18/15 5:27 AM) INR [0.85-1.17] 47.5 seconds *HI* (06/18/15 2:24 PM) 73.8 seconds *HI* (06/18/15 8:02 AM) >200.0 seconds 4 *CRIT* (06/18/15 5:27 AM) PTT [22.9-35.8 seconds] 4Result Comment: Critical Result(s) called to ky mendoza at 06/18/2015 07:05 bysss. Read back OK. Immunizations No data available for this section Procedures Procedure Date Related Diagnosis Body Site Hemorrhoidectomy Hysterectomy Laminectomy Social History Social History Type Response Substance Abuse Use: None. Alcohol Never Smoking Status Never smoker; Exposure to Tobacco Smoke None; Cigarette Smoking Last 365 Days No; Reg Smoking Cessation Counseling No Assessment and Plan Extracted from: Title: Discharge Summary Author: Emilia Holcomb MD Date: 06/20/15 Discharge Summary Name: Edda Olivares D.O.B : 1935 Admission Date: 06/15/15 Length of Stay : 5 days Discharge Date: 06/20/15 Diagnoses: Epistaxis, Left Lower Extremity DVT, Paroxysmal Afib PMH: Parkinsons, Glaucoma, Hypothyroidism, Anxiety Hospital course: 79yof with history of Parkinsons Disease and HTN presented with intermittent epistaxis from both sides for the past 4 weeks without history of facial trauma. Initially went to [facility] where she was packed with a rhinorocket on the Left and transferred to [facility] for further care. She was seen by ENT on 06/15/15 and the rhinorocket was removed and replaced by asorbable package. Most likely cause of bleeding is nasal ulceration . of Her most recent Hgb at discharge is at 8.7 with hemodynamic stablitliy, Hgb was 13.1 on admission, likely hemoconcentrated with blood loss. Her course in the hospital was complicated by DVT on LE doppler of left superical femoral vein. She was treated with Heparin and continued on oral anticoagulation as per family request. Harm vs benefit of anticougualtion was discussed in detail with the family. The patient also had an episode of Afib which was likely paroxsymal and not new onset. She converted to NSR after recieving one dose of toprol 12.5mg. Currently not on any betablocker. 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 During her admission in the hospital she was continued on her home meds for Parkinson and disease and Glaucoma. Recent signficant physical findings: General: Awake, Alert, no acute distress HEENT: PERRL, EOMI, no scleral icterus, left nare packed with absorbable packing, moist mucus Neck: supple, trachea midline, no lymphadenopathy, no JVD CV: regular rate and rhythm, no murmur Lungs: Clear to auscultation bilaterally, no wheezing. Abdomen: soft, nontender to palpation, bowel sounds present, no guarding, no rigidity. Musculoskeletal: parkinsons resting tremor noted. Discharge condition: Stable Medications on Discharge : PARoxetine 25 mg PO QAM Nuedexta: 1 cap, PO, Daily QUEtiapine 25 mg PO BID KlonoPIN: 0.25 mg, PO, PRN amoxicillin-clavulanate (Augmentin 875 mg oral tablet) 1 tab PO Q12H brinzolamide ophthalmic (Azopt) 1 drp BOTH EYES BID carbidopa-levodopa (Sinemet 25 mg-100 mg oral tablet) 2 tab PO QID docusate 100 mg PO BID enoxaparin (Lovenox) 90 mg SUB-Q [id number] x 7 days latanoprost ophthalmic (Xalatan) 1 drp BOTH EYES Bedtime levothyroxine (Synthroid) 25 microgram PO Q630AM pantoprazole (Protonix) 40 mg PO Before Breakfast polyethylene glycol 3350 (MiraLax) 17 gm PO Daily omeprazole: 20 mg, PO, Daily, warfarin 2.5 mg PO Q5 pm x 30 days with 1 refill PCP Follow up:Patient discharged with Home Health Skilled Services : Correction, Evaluate and Treat, Physical Therapy, Speech Therapy, Occupational Therapy, Lovenox 90mg SQ daily for 5-7 days to start 06/21/15. Check INR on Sunday June 22, 2014. Orders in place to send results to Primary care physician Dr. De Leon Goal INR 2-3. / phone #[phone]. Discontinue Lovenox when INR 2-3. E.N.T recommendations; - PRN Afrin for bleeding, nasal saline spray q4hrs -Augmentin BID for packing in place -Follow up with Dr. Jaron Davis as outpatient Jaron as outpatient [phone] as needed Nutrition recommendations; Continue chopped food and thick nectar liquids Severe protein malnutrition- BMI consistent with patient underweight, recommend to continue to encourage intake and supplementation. Diet : Nutrition recommendations; Continue chopped food and thick nectar liquids Emilia Holcomb MD Geriatrics Fellow Attending Note: I have seen and examined the patient with Geriatric Fellow and team; and I reviewed the vitals and laboratory results. I discussed the patient with fellow, and agree with Dr. Dr. Holcomb's findings and plan as documented in the fellow s note with addition of: Discussed with daughter at bedside recommendations for coumadin, and interactions with other medications, as well as vit k rich foods. Daughter given uptodate Patient information regarding coumadin. Total Time > 35 minutes >50% time spent includes: patient reassessment, interpretation of data including the laboratory data and imaging results, medical discussion risk and benefits of mediation for anticoagulation, and medication reconciliation review, and coordination of patient care with family. Cindy iDane MD Geriatric Attending Extracted from: Title: Geriatrics Progress Note Author: Ramesh Davenport DO Date: 06/19/15 Medicine Progress Note SUBJECTIVE: No acute events overnight, pt reports she is doing okay. OBJECTIVE: Vitals and Temp: VitalsTmp(F)[id number] 06/19 15:[id number]--- 06/19 11:2098.741820/505112--- 06/19 07:3097.897620/202437--- 06/18 19:[id number]/124043--- 06/18 15:[id number]/[id number]--- 24 Hr Tmax: 98.3F (36.83c) at 06/19 11:20Vital Signs are the last 5 in the past 48 hours. Lines, Tubes, and Drains: 06/17/2015 07:45 Peripheral Lines: Antecubital Left 20 gauge Over the needle catheter Scheduled Meds (14): 06/16/15 PARoxetine 25 mg PO QAM 06/16/15 QUEtiapine 25 mg PO BID 06/16/15 amoxicillin-clavulanate (Augmentin 875 mg oral tablet) 1 tab PO Q12H 06/16/15 brinzolamide ophthalmic (Azopt) 1 drp BOTH EYES BID 06/15/15 carbidopa-levodopa (Sinemet 25 mg-100 mg oral tablet) 2 tab PO QID 06/15/15 docusate 100 mg PO BID 06/20/15 enoxaparin (Lovenox) 90 mg SUB-Q [id number] 06/15/15 latanoprost ophthalmic (Xalatan) 1 drp BOTH EYES Bedtime 06/16/15 levothyroxine (Synthroid) 25 microgram PO Q630AM 06/17/15 (Suspended) metoprolol (metoprolol tartrate) 12.5 mg PO Q12H 06/16/15 pantoprazole (Protonix) 40 mg PO Before Breakfast 06/15/15 polyethylene glycol 3350 (MiraLax) 17 gm PO Daily 06/15/15 sodium chloride nasal (Nasal Saline 0.65% solution) 2 spray NASAL Q4H 06/19/15 warfarin 2.5 mg PO Q5PM PHYSICAL EXAM: General: Awake, Alert, no acute distress HEENT: PERRL, EOMI, no scleral icterus, left nare packed with absorbable packing, moist mucus Neck: supple, trachea midline, no lymphadenopathy, no JVD CV: regular rate and rhythm, no murmur Lungs: Clear to auscultation bilaterally, no wheezing. Abdomen: soft, nontender to palpation, bowel sounds present, no guarding, no rigidity. Musculoskeletal: parkinsons resting tremor noted. 24hr Labs 06/19 0457 Glucose Lvl87 BUN21 Creatinine Lvl0.8 Sodium Gja159 H Potassium Lvl4.6 Chloride Ydv041 H CO226 AGAP11.6 Calcium Lvl8.3 L eGFR70 Magnesium Lvl2.0 Phosphorus3.5 PT15.7 H INR1.24 H WBC5.9 RBC2.89 L Hgb9.0 L Hct27.5 L MCV95.1 MCH31.1 H MCHC32.6 RDW14.7 H Jdbbxcnq696 L MPV10.0 Segs55.0 Monocytes7.0 Roivecvbppb12.5 Eosinophils2.9 Basophils0.6 Segs-Bands #3.3 Lymphocytes #2.1 Monocytes #0.4 Eosinophils #0.2 ASSESSMENT AND PLAN: 79 year old female with PMHx of PD, hypothroidism, and hx of anxiety presented to ED for epistaxis for 4 weeks. Was seen by ENT and transfered to geriatrics for further managment. 1. Epistaxis -seent by ENT 06/15/15, due to local trauma -rhinorocketremoved by ENT due to stable BP, placed asorbable package -recommend PRN afrin for bleeding, nasal saline spray q4hrs -Augmentin BID to prevent TSS - no further follow up needed as in patient -pt to follow up with Dr. Jaron Davis as outpatient -Spoke with E.N.T , the no further follow up required as in-patient . -Most likely cause of bleeding is Nasal ulceration , non specific bleeding . -Patient can follow up with Jaron Cornelius as outpatient [phone] as needed . 2. Parkinson's disease -continue sinemet, quetipine -paroxtine for depression 3. Glaucoma -continue home opahtolimic drops 4. Left lower extremity DVT -LLE DVT of left superical femoral vein -discussed with family harm vs benefit of anticougualtion, they would like to continue anticouagulation. -currently on heparin drip, -Pharmacy dosing Coumadin has been ordered . -Knee Xray only notes OA, may need 3 view xray 5. Paroxysmal Atrial Fibrillation - not new onset -currenlty NSR, likely induced due to increased sympathetic activitydue to anxiety -rate controlled off medication, will continue to monitor. 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 6. Debility - working with PT/OT plan to d/c home with home PT/OT 7. Nutrition - speech consulted, recommended continuing chopped food and thick nectar liquids dispo - plan to dc in AM Ramesh Davenport, [place] Internal Medicine, PGY-3 Addendum Attending Note: by Roxi, I have seen and examined the patient with the resident on 06/19/15; and I have reviewed the Cindy Sánchez MD vitals and laboratory results. I discussed the patient with Geriatric Team, and agree with on Dr. Davenport's findings and plan as documented in the resident 06/20/2015 s note with addition of: 11:07 Dispo- spoke with daughter to discuss plan for discharge home with lovenox. discussed antibioitic, food interaction with coumadin. discussed risks and benefits of treatment. set up with pharmacy to have lovenox at home to bridge with coumadin. per RN, faxed to pharmacy. Cindy Diane MD Geriatric Attending Extracted from: Title: General Admission H&P * Author: Zayra Holguin Date: 06/15/15 Impression and Plan Pt is a 79 yo F with PMHx of parkinsons disease, hypothyroidism, and anxiety who presented to the ED today with epistaxis (bright red blood and clots). Pt has had 3 similar episodes in the past. In addition, pt reports LLE pain 9/10 that is constant and exacerbated with palpation. Currently, pt is c/o LLE pain and pain mgmt is controlled. Epistaxis: -ENT consulted and is aware of pt - IVFs on board - nose pack - PT lab is normal DVT: -Superficial -hold anticoagulation due to epistaxis - monitor Parkinson's Disease: - continue home meds Dispo: discuss with geriatric and transfer tomorrow morning
--- OUTSIDE RECORDS SUMMARY | 2018-09-10 21:12 | XMS REPORT ---
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 Allergies, Adverse Reactions, Alerts Allergy Name Allergy Type Status Severity Reaction(s) Onset Date Inactive Date Treating Clinician Comments nakia Mendoza MD 2017-12-14 00:00:00 Medications This patient has no known medications.
--- OUTSIDE RECORDS SUMMARY | 2018-09-10 21:12 | XMS REPORT | Continuity of Care Document ---
Author Author [facility] Interface Address Unknown Phone Unavailable Problems Problem Status Onset Date Classification Date Reported Comments Source AMS Active 10/03/2016 [facility] [place] AMS, ACUTE LOWER UTI Active 10/03/2016 [facility] [place] SEIZURE Active 10/03/2016 [facility] [place] EPISTATAXIS Active 06/15/2015 [facility] NOSE BLEED Active 06/15/2015 [facility] [place] Anxiety Resolved Problem 10/09/2016 [facility] Hypothyroidism Resolved Problem 10/09/2016 [facility] Parkinsons disease Resolved Problem 10/09/2016 [facility] EPISTAXIS Active [facility] OTHER SEIZURES Active [facility] [place] Medications Medication Details Route Status Patient Instructions Ordering Provider Order Date Source Levofloxacin 500 MG Oral Tablet [Levaquin] 500 mg=1 tab, PO, Q24H, X 7 day, # 7 tab, 0 Refill(s) Active 10/06/2016 [facility] [place] digoxin 0.25 mg, 1 mL, Route: IVP, Drug form: INJ, Q8H, Dosing Weight 55.909, kg, Start date: 10/05/16 20:00:00 SHOULDER PAD MOLDER, Stop date: 10/06/16 16:00:00 CSTNotes: (Same as: Lanoxin) No Longer Active 10/06/2016 [facility] [place] Nitroglycerin 0.4 MG Sublingual Tablet [Nitrostat] 0.4 mg, 1 tab, Route: SL, Drug form: TAB, Q5Min, Dosing Weight 55.909, kg, PRN Chest Pain, Start date: 10/05/16 19:28:00 SHOULDER PAD MOLDER, Duration: 3 doses or times, Stop date: Limited # of timesNotes: (Same as:Nitroquick, Nitrostat) "Do Not Crush" Sublingual tablet No Longer Active 10/06/2016 [facility] [place] Metoprolol 5 mg, 5 mL, Route: IV, Drug form: INJ, Q2H, Dosing Weight 55.909, kg, PRN Tachycardia, Start date: 10/05/16 19:28:00 SHOULDER PAD MOLDER, Duration: 30 day, Stop date: 11/04/16 19:27:00 CSTNotes: (Same as: Lopressor) Push over 2 minutes No Longer Active 10/06/2016 [facility] [place] Morphine 2 mg, 1 mL, Route: IVP, Drug form: INJ, Q2H, Dosing Weight 55.909, kg, PRN Chest Pain, Start date: 10/05/16 19:28:00 SHOULDER PAD MOLDER, Duration: 30 day, Stop date: 11/04/16 19:27:00 CSTNotes: (Same as:MORPhine Sulfate) No Longer Active 10/06/2016 [facility] [place] Hydralazine 10 mg, 0.5 mL, Route: IV, Drug form: INJ, Q4H, Dosing Weight 55.909, kg, PRN Hypertension, Start date: 10/05/16 19:28:00 SHOULDER PAD MOLDER, Duration: 30 day, Stop date: 11/04/16 19:27:00 CSTNotes: (Same as: Apresoline) Push over 5 minutes No Longer Active 10/06/2016 [facility] [place] Seroquel 50 mg, 2 tab, Route: PO, Drug form: TAB, Bedtime, Dosing Weight 55.909, kg, Start date: 10/04/16 21:00:00 SHOULDER PAD MOLDER, Duration: 30 day, Stop date: 11/02/16 21:00:00 CSTNotes: (Same as: SEROquel) No Longer Active 10/05/2016 [facility] [place] Digoxin 0.25 mg, 1 mL, Route: IVP, Drug form: INJ, Q8H, Dosing Weight 55.909, kg, Start date: 10/04/16 20:00:00 SHOULDER PAD MOLDER, Duration: 4 doses or times, Stop date: 10/05/16 16:00:00 CSTNotes: (Same as: Lanoxin) No Longer Active 10/05/2016 [facility] [place] xalatan eye drops xalatan eye drops, 1drop, Drug form: MISC, Route: Each Affected Eye, QPM, 10/04/16 17:00:00 SHOULDER PAD MOLDER, Duration: 30 day, Stop date: 11/02/16 17:00:00 SHOULDER PAD MOLDER No Longer Active 10/04/2016 [facility] [place] Xalatan 1 drp, Route: Each Affected Eye, QPM, Drug form: SOLN, Start date: 10/04/16 17:00:00 SHOULDER PAD MOLDER, Duration: 30 day, Stop date: 11/02/16 17:00:00 CSTNotes: Keep refrigerated. (Same as:Xalatan) Inactive 10/04/2016 [facility] [place] Warfarin 2 mg, 1 tab, Route: PO, Drug form: TAB, Q5PM, Dosing Weight 63.636, kg, Start date: 10/04/16 17:00:00 SHOULDER PAD MOLDER, Duration: 30 day, Stop date: 11/02/16 17:00:00 CSTNotes: Nurse to ensure documentation of patient education per anticoagulation policy. Avoid large intake of vitamin-K containing foods diet. (Same As: Coumadin) WASTE: F/P - P Waste Black; E - P Waste Black No Longer Active 10/04/2016 [facility] [place] Rocephin 1 gm, Route: IVPB, [id number], Dosing Weight 63.636, kg, Start date: 10/04/16 16:00:00 SHOULDER PAD MOLDER, Duration: 30 day, Stop date: 11/02/16 16:00:00 CSTNotes: (Same As: Rocephin). Use with 100 mL NS and infuse over 30 min MEDICATION WASTE Product Size: 1000 mg Product Wasted: ___ mg No Longer Active 10/04/2016 [facility] [place] Nuedexta 1 cap, Route: PO, Dosing Weight 63.636, kg, QNoon, Start date: 10/04/16 12:00:00 SHOULDER PAD MOLDER, Duration: 30 day, Stop date: 11/02/16 12:00:00 SHOULDER PAD MOLDER Inactive 10/04/2016 [facility] [place] pt own Dextromethorphan-Quinidine (Nuedexta) pt own Dextromethorphan- Quinidine (Nuedexta), 20mg-10mg, Drug form: MISC, Route: PO, QNoon, 10/04/16 12:00:00 SHOULDER PAD MOLDER, Duration: 30 day, Stop date: 11/02/16 12:00:00 SHOULDER PAD MOLDER No Longer Active 10/04/2016 [facility] [place] Miralax 17 gm, 1 pkt, Route: PO, Drug form: PWDR, Daily, Dosing Weight 63.636, kg, Start date: 10/04/16 9:00:00 SHOULDER PAD MOLDER, Duration: 30 day, Stop date: 11/02/16 9:00:00 CSTNotes: Dissolve in 8 oz of water or juice. (Same as: Miralax) No Longer Active 10/04/2016 [facility] [place] Paroxetine 25 mg, Route: PO, Drug form: ERTAB, QAM, Dosing Weight 63.636, kg, Start date: 10/04/16 9:00:00 SHOULDER PAD MOLDER, Duration: 30 day, Stop date: 11/02/16 9:00:00 SHOULDER PAD MOLDER No Longer Active 10/04/2016 [facility] [place] Omeprazole 20 mg, Route: PO, Drug form: ECTAB, BID, Dosing Weight 63.636, kg, Start date: 10/04/16 9:00:00 SHOULDER PAD MOLDER, Duration: 30 day, Stop date: 11/02/16 17:00:00 SHOULDER PAD MOLDER No Longer Active 10/04/2016 [facility] [place] Claritin 10 mg, Route: PO, Drug form: TAB, Daily, Dosing Weight 63.636, kg, Start date: 10/04/16 9:00:00 SHOULDER PAD MOLDER, Duration: 30 day, Stop date: 11/02/16 9:00:00 SHOULDER PAD MOLDER No Longer Active 10/04/2016 [facility] [place] Xalatan 1 drp, Route: BOTH EYES, BID, Start date: 10/04/16 9:00:00 SHOULDER PAD MOLDER, Duration: 30 day, Stop date: 11/02/16 17:00:00 SHOULDER PAD MOLDER No Longer Active 10/04/2016 [facility] [place] Docusate Sodium 50 MG Oral Capsule 50 mg, 1 cap, Route: PO, Drug form: CAP, TID, Dosing Weight 63.636, kg, Start date: 10/04/16 9:00:00 SHOULDER PAD MOLDER, Duration: 30 day, Stop date: 11/02/16 17:00:00 SHOULDER PAD MOLDER No Longer Active 10/04/2016 [facility] [place] *Pts own med Nuplazid 17mg* *Pts own med Nuplazid 17mg*, 34 mg, 2 tab, Drug form: MISC, Route: PO, Daily, 10/04/16 9:00:00 SHOULDER PAD MOLDER, Duration: 30 day, Stop date: 11/02/16 9:00:00 SHOULDER PAD MOLDER No Longer Active 10/04/2016 [facility] [place] Trusopt 1 drp, Route: BOTH EYES, BID, Drug form: SOLN, Start date: 10/04/16 9:00:00 SHOULDER PAD MOLDER, Duration: 30 day, Stop date: 11/02/16 17:00:00 CSTNotes: (Same as: Trusopt) No Longer Active 10/04/2016 [facility] [place] ZyrTEC 10 mg, 2 tab, Route: PO, Drug form: TAB, Daily, Start date: 10/04/16 9:00:00 SHOULDER PAD MOLDER, Duration: 30 day, Stop date: 11/02/16 9:00:00 CSTNotes: (Same As: Zyrtec) No Longer Active 10/04/2016 [facility] [place] Paxil 20 mg, 2 tab, Route: PO, Drug form: TAB, Daily, Start date: 10/04/16 9:00:00 SHOULDER PAD MOLDER, Duration: 30 day, Stop date: 11/02/16 9:00:00 CSTNotes: (Same as: Paxil) No Longer Active 10/04/2016 [facility] [place] brinzolamide 1 drp, Route: BOTH EYES, BID, Start date: 10/04/16 9:00:00 SHOULDER PAD MOLDER, Duration: 30 day, Stop date: 11/02/16 17:00:00 SHOULDER PAD MOLDER No Longer Active 10/04/2016 [facility] [place] Protonix 40 mg, 1 tab, Route: PO, Drug form: ECTAB, BID, Start date: 10/04/16 9:00:00 SHOULDER PAD MOLDER, Duration: 30 day, Stop date: 11/02/16 17:00:00 CSTNotes: Tablet should not be chewed or crushed. (Same as: Protonix) No Longer Active 10/04/2016 [facility] [place] Tigan 300 mg, 1 cap, Route: PO, Drug form: CAP, TID-Before Meals, Dosing Weight 63.636, kg, Start date: 10/04/16 7:30:00 SHOULDER PAD MOLDER, Duration: 30 day, Stop date: 11/02/16 16:30:00 CSTNotes: For nausea and vomiting. No Longer Active 10/04/2016 [facility] [place] Synthroid 25 microgram, 1 tab, Route: PO, Drug form: TAB, Q630AM, Dosing Weight 63.636, kg, Start date: 10/04/16 6:30:00 SHOULDER PAD MOLDER, Duration: 30 day, Stop date: 11/02/16 6:30:00 CSTNotes: Take 1 hour before or 2 hours after meal; Enteral feeds may interefere with the absorption of this medication. (Same as:Levothroid) No Longer Active 10/04/2016 [facility] [place] *RN pls verify frequency of home med Xalatan w/ pt* *RN pls verify frequency of home med Xalatan w/ pt*, Reminder, Drug form: MISC, Route: MISC, QSHIFT, 10/04/16 0:00:00 SHOULDER PAD MOLDER, Duration: 30 day, Stop date: 11/02/16 16:00:00 SHOULDER PAD MOLDER Inactive 10/04/2016 [facility] [place] *Remind pt to bring home meds Nuedexta, Tigan,docusate* *Remind pt to bring home meds Nuedexta, Tigan,docusate*, Reminder, Drug form: MISC, Route: MISC, QSHIFT, 10/04/16 0:00:00 SHOULDER PAD MOLDER, Duration: 30 day, Stop date: 11/02/16 16:00:00 SHOULDER PAD MOLDER Inactive 10/04/2016 [facility] [place] Xalatan 1 drp, Route: BOTH EYES, ONCE, Drug form: SOLN, Start date: 10/03/16 21:00:00 SHOULDER PAD MOLDER, Stop date: 10/03/16 21:00:00 CSTNotes: Keep refrigerated. (Same as:Xalatan) Inactive 10/04/2016 [facility] [place] Carbidopa 25 MG / Levodopa 100 MG Oral Tablet [Sinemet 25-100] 1 tab, Route: PO, Drug Form: TAB, Dosing Weight 63.636, kg, QID, Start date: 10/03/16 21:00:00 SHOULDER PAD MOLDER, Duration: 30 day, Stop date: 11/02/16 17:00:00 CSTNotes: Take with milk or food. (Same As: Sinemet) No Longer Active 10/04/2016 [facility] [place] Lovenox 40 mg, Route: SUB-Q, Drug form: INJ, [id number], Dosing Weight 63.636, kg, Start date: 10/03/16 18:00:00 SHOULDER PAD MOLDER, Duration: 30 day, Stop date: 11/01/16 18:00:00 SHOULDER PAD MOLDER Inactive 10/04/2016 [facility] [place] Klonopin 0.5 mg, 1 tab, Route: PO, Drug form: TAB, Daily, Dosing Weight 63.636, kg, Start date: 10/03/16 18:00:00 SHOULDER PAD MOLDER, Duration: 30 day, Stop date: 11/02/16 16:00:00 CSTNotes: (Same As: KlonoPIN) No Longer Active 10/04/2016 [facility] [place] sodium chloride 0.9% 1000 ml INJ 1,000 mL 1,000 mL, Rate: 75 ml/hr, Infuse over: 13.3 hr, Route: IV, Dosing Weight 63.636 kg, Total Volume: 1,000, Start date: 10/03/16 17:51:00 SHOULDER PAD MOLDER, Duration: 30 day, Stop date: 11/02/16 17:50:00 SHOULDER PAD MOLDER No Longer Active 10/03/2016 [facility] [place] Tylenol 650 mg, 2 tab, Route: PO, Drug form: TAB, Q6H, Dosing Weight 63.636, kg, PRN For Temp > 100.4 F, Start date: 10/03/16 17:29:00 SHOULDER PAD MOLDER, Duration: 30 day, Stop date: 11/02/16 17:28:00 CSTNotes: Do not exceed 4 gm/day. (Same as: Tylenol) No Longer Active 10/03/2016 [facility] [place] Zofran 4 mg, 2 mL, Route: IVP, Drug form: INJ, Q6H, Dosing Weight 63.636, kg, PRN Nausea, Start date: 10/03/16 17:29:00 SHOULDER PAD MOLDER, Duration: 30 day, Stop date: 11/02/16 17:28:00 CSTNotes: (Same as: Zofran) MEDICATION WASTE Product Size: 4 mg Product Wasted: ___ mg No Longer Active 10/03/2016 [facility] [place] Lorazepam 1 mg, 0.5 mL, Route: IVP, Drug form: INJ, Q15Min, Dosing Weight 63.636, kg, PRN Seizure, Start date: 10/03/16 17:25:00 SHOULDER PAD MOLDER, Duration: 30 day, Stop date: 11/02/16 17:24:00 CSTNotes: (Same as: Ativan) No Longer Active 10/03/2016 [facility] [place] warfarin 1 mg oral tablet 2 mg=2 tab, PO, Q5PM, 0 Refill(s) Active 10/03/2016 [facility] [place] Vitamin B Complex with C and Calcium oral tablet 1 tab, PO, TID, 0 Refill(s) Active 10/03/2016 [facility] [place] Nuplazid 17 mg Nuplazid 17 mg, 2 tab, PO, Daily, Refill(s) 0 Active 10/03/2016 [facility] [place] Carbidopa 25 MG / Levodopa 100 MG Oral Tablet [Sinemet 25-100] 1 tab, PO, QID, 0 Refill(s) Active 10/03/2016 [facility] [place] Ceftriaxone 1 gm, Route: IVPB, Drug form: PDR/INJ, ONCE, Dosing Weight 63.636, kg, Priority: STAT, Start date: 10/03/16 15:24:00 SHOULDER PAD MOLDER, Stop date: 10/03/16 15:24:00 SHOULDER PAD MOLDER Inactive 10/03/2016 [facility] [place] Saline Flush 0.9% 10 mL, Route: IVP, Drug Form: INJ, Dosing Weight 63.636, kg, PRN, PRN Line Flush, Start date: 10/03/16 14:40:00 SHOULDER PAD MOLDER, Duration: 30 day, Stop date: 11/02/16 14:39:00 CSTNotes: (Same as: BD Posiflush) Inactive 10/03/2016 [facility] [place] Lorazepam 1 mg, Route: IVP, Drug form: INJ, ONCE, Dosing Weight 63.636, kg, Priority: STAT, Start date: 10/03/16 14:28:00 SHOULDER PAD MOLDER, Stop date: 10/03/16 14:28:00 SHOULDER PAD MOLDER Inactive 10/03/2016 [facility] [place] Lovenox 90 mg, 0.9 mL, Route: SUB-Q, Drug form: INJ, [id number], Dosing Weight 58.636, kg, Start date: 06/20/15 13:00:00, Duration: 30 day, Stop date: 07/19/15 13:00:00Notes: Nurse to ensure documentation of patient education per anticoagulation policy. (Same as: Lovenox) Inactive 06/20/2015 [facility] warfarin 2.5 mg oral tablet 2.5 mg, PO, Daily, # 30 tab, 1 Refill(s) Active 06/20/2015 [facility] Warfarin 2.5 mg, 1 tab, Route: PO, Drug form: TAB, Q5PM, Dosing Weight 58.636, kg, Start date: 06/19/15 17:00:00, Duration: 1 doses or times, Stop date: 06/19/15 17:00:00Notes: Nurse to ensure documentation of p atient education per anticoagulation policy. Avoid large intake of vitamin-K containing foods diet. (Same As: Coumadin) Inactive 06/19/2015 [facility] Lovenox 30 mg, 0.3 mL, Route: SUB-Q, Drug form: INJ, ONCE, Start date: 06/19/15 13:00:00, Stop date: 06/19/15 13:00:00Notes: (Same as: Lovenox) Inactive 06/19/2015 [facility] Lovenox 90 mg, Route: SUB-Q, Drug form: INJ, [id number], Dosing Weight 58.636, kg, Start date: 06/19/15 12:00:00, Duration: 30 day, Stop date: 07/19/15 0:00:00 Inactive 06/19/2015 [facility] enoxaparin 100 mg/mL subcutaneous solution 90 mg, SUB-Q, Daily, # 630 mg, 0 Refill(s) Active 06/19/2015 [facility] warfarin 2.5 mg oral tablet 2.5 mg=1 tab, PO, Q5PM, # 30 tab, 0 Refill(s) No Longer Active 06/19/2015 [facility] Lovenox 90 mg, SUB-Q, Daily, 0 Refill(s) Inactive 06/19/2015 [facility] Lovenox 30 mg, 0.3 mL, Route: SUB-Q, Drug form: INJ, ONCE, Dosing Weight 58.636, kg, Start date: 06/19/15 11:47:00, Stop date: 06/19/15 11:47:00Notes: (Same as: Lovenox) Inactive 06/19/2015 [facility] Lovenox 60 mg, 0.6 mL, Route: SUB-Q, Drug form: INJ, [id number], Dosing Weight 58.636, kg, Start date: 06/18/15 19:00:00, Duration: 30 day, Stop date: 07/18/15 7:00:00Notes: Nurse to ensure documentation of patient education per anticoagulation policy. (Same as: Lovenox) No Longer Active 06/19/2015 [facility] Warfarin 2.5 mg, 1 tab, Route: PO, Drug form: TAB, Q5PM, Dosing Weight 58.636, kg, Start date: 06/18/15 17:00:00, Duration: 1 doses or times, Stop date: 06/18/15 17:00:00Notes: Nurse to ensure documentation of p atient education per anticoagulation policy. Avoid large intake of vitamin-K containing foods diet. (Same As: Coumadin) Inactive 06/18/2015 [facility] Magnesium Oxide 400 mg, 1 tab, Route: PO, Drug form: TAB, BID, Dosing Weight 58.636, kg, Start date: 06/18/15 9:00:00, Duration: 2 doses or times, Stop date: 06/18/15 17:00:00Notes: (Same as: Mag-Ox 400) Magnesium o xide [id number] elemental magnesium Dose=____mg magnesium oxide (___mg elemental magnesium) Inactive 06/18/2015 [facility] potassium chloride 40 mEq, 2 tab, Route: PO, Drug form: ERTAB, ONCE, Dosing Weight 58.636, kg, Start date: 06/18/15 7:12:00, Stop date: 06/18/15 7:12:00Notes: (Same as: K-Dur 20) "Do Not Crush" With food and full glass of water Inactive 06/18/2015 [facility] heparin sodium, porcine 1000 UNT/ML Injectable Solution Route: IVP, PRN, 4,100 unit, 4.1 mL, Drug form: INJ, PRN, Heparin Protocol, Start date: 06/18/15 3:35:00 Stop date: 07/18/15 3:34:00, 30 day Inactive 06/18/2015 [facility] heparin additive 25,000 unit [18 unit/kg/hr] + Premix Diluent Dextrose 5% 500 mL 500 mL, Rate: 18.27 ml/hr, Infuse over: 27.4 hr, Route: IV, Dosing Weight 50.75 kg, Total Volume: 500 mL, Start date: 06/18/15 3:35:00, Duration: 30 day, Stop date: 07/18/15 3:34:00 Inactive 06/18/2015 [facility] metoprolol tartrate 12.5 mg, 1 tab, Route: PO, Drug form: TAB, Q12H, Dosing Weight 58.636, kg, Start date: 06/17/15 9:00:00, Duration: 30 day, Stop date: 07/16/15 21:00:00Notes: (Same as: Lopressor) 12.5mg=1/4 X 50 mg tab. No Longer Active 06/17/2015 [facility] metoprolol tartrate 12.5 mg, 1 tab, Route: PO, Drug form: TAB, Q8H, Dosing Weight 58.636, kg, Start date: 06/17/15 8:00:00, Duration: 30 day, Stop date: 07/17/15 0:00:00Notes: (Same as: Lopressor) 12.5mg=1/4 X 50 mg tab. Inactive 06/17/2015 [facility] Magnesium Sulfate 2 gm, 50 mL, Route: IVPB, Drug form: INJ, ONCE, Dosing Weight 58.636, kg, Start date: 06/17/15 6:53:00, Duration: 2 hr, Stop date: 06/17/15 6:53:00 Inactive 06/17/2015 [facility] metoprolol extended release Route: PO, Drug form: TAB, Q8Hnow, Start date: 06/16/15 22:00:00, Duration: 30 day, Stop date: 07/16/15 14:00:00Notes: (Same as: Lopressor) 12.5mg=1/4 X 50 mg tab. No Longer Active 06/17/2015 [facility] Azopt 1 drp, Route: BOTH EYES, BID, Drug form: SUSP, Start date: 06/16/15 17:00:00, Duration: 30 day, Stop date: 07/16/15 9:00:00Notes: Non-Formulary Drug. (Same As: Azopt) No Longer Active 06/16/2015 [facility] Tigan 300 mg, 1 cap, Route: PO, Drug form: CAP, TID, Dosing Weight 58.636, kg, PRN Nausea & Vomiting, Start date: 06/16/15 12:20:00, Duration: 30 day, Stop date: 07/16/15 12:19:00Notes: For nausea and vomiting. No Longer Active 06/16/2015 [facility] Omeprazole 20 mg, Route: PO, Daily, Dosing Weight 63.636, kg, Start date: 06/16/15 9:00:00, Duration: 30 day, Stop date: 07/15/15 9:00:00 No Longer Active 06/16/2015 [facility] quetiapine 25 mg, 1 tab, Route: PO, Drug form: TAB, BID, Dosing Weight 58.636, kg, Start date: 06/16/15 9:00:00, Duration: 30 day, Stop date: 07/15/15 17:00:00Notes: (Same as: SEROquel) No Longer Active 06/16/2015 [facility] Paroxetine 25 mg, 2.5 tab, Route: PO, Drug form: TAB, QAM, Dosing Weight 58.636, kg, Start date: 06/16/15 9:00:00, Duration: 30 day, Stop date: 07/15/15 9:00:00Notes: (Same as: Paxil) No Longer Active 06/16/2015 [facility] Aspirin 81 mg, 1 tab, Route: PO, Drug form: ECTAB, Daily, Dosing Weight 58.636, kg, Start date: 06/16/15 9:00:00, Duration: 30 day, Stop date: 07/15/15 9:00:00, Patient's Own MedsNotes: Do not crush or chew. (Same As: Ecotrin) No Longer Active 06/16/2015 [facility] brinzolamide 1 drp, Route: BOTH EYES, BID, Start date: 06/16/15 9:00:00, Duration: 30 day, Stop date: 07/15/15 17:00:00 Inactive 06/16/2015 [facility] Amoxicillin 875 MG / Clavulanate 125 MG Oral Tablet [Augmentin 875-mg] 1 tab, Route: PO, Drug Form: TAB, Dosing Weight 58.636, kg, Q12H, Start date: 06/16/15 9:00:00, Duration: 7 day, Stop date: 06/22/15 21:00:00Notes: With food. (Same as: Augmentin 875) No Longer Active 06/16/2015 [facility] Protonix 40 mg, 1 tab, Route: PO, Drug form: ECTAB, Before Breakfast, Start date: 06/16/15 7:30:00, Duration: 30 day, Stop date: 07/15/15 7:30:00Notes: Tablet should not be chewed or crushed. (Same as: Protonix) No Longer Active 06/16/2015 [facility] Synthroid 25 microgram, 1 tab, Route: PO, Drug form: TAB, Q630AM, Dosing Weight 58.636, kg, Start date: 06/16/15 6:30:00, Duration: 30 day, Stop date: 07/15/15 6:30:00Notes: Take 1 hour before or 2 hours after meal; Enteral feeds may interefere with the absorption of this medication. (Same as:Levothroid) No Longer Active 06/16/2015 [facility] heparin additive 25,000 unit [18 unit/kg/hr] + Premix Diluent Dextrose 5% 500 mL 500 mL, Rate: 18.27 ml/hr, Infuse over: 27.4 hr, Route: IV, Dosing Weight 50.75 kg, Total Volume: 500 mL, Start date: 06/16/15 4:09:00, Duration: 30 day, Stop date: 07/16/15 4:08:00 No Longer Active 06/16/2015 [facility] Seroquel 25 mg, 1 tab, Route: PO, Drug form: TAB, ONCE, Dosing Weight 58.636, kg, Start date: 06/16/15 0:43:00, Stop date: 06/16/15 0:43:00Notes: (Same as: SEROquel) Inactive 06/16/2015 [facility] Docusate Sodium 50 MG Oral Capsule 50 mg=1 cap, PO, TID, PRN Constipation Active 06/16/2015 [facility] Aspirin 81 MG Enteric Coated Tablet 81 mg=1 tab, PO, Daily No Longer Active 06/16/2015 [facility] omeprazole 20 mg oral enteric coated tablet 20 mg=1 tab, PO, BID Active 06/16/2015 [facility] Loratadine 10 MG Oral Tablet [Claritin] 10 mg=1 tab, PO, Daily Active 06/16/2015 [facility] quetiapine 25 MG Oral Tablet [Seroquel] 50 mg=2 tab, PO, TID Active 06/16/2015 [facility] Afrin 0.025% nasal solution Route: NASAL, PRN, Drug form: SPRY, PRN Bleeding, Start date: 06/15/15 22:18:00, Duration: 2 day, Stop date: 06/17/15 22:17:00Notes: (Same as: Afrin) No Longer Active 06/16/2015 [facility] Xalatan 1 drp, Route: BOTH EYES, Bedtime, Drug form: SOLN, Start date: 06/15/15 21:00:00, Duration: 30 day, Stop date: 07/14/15 21:00:00Notes: Keep refrigerated. (Same as:Xalatan) No Longer Active 06/16/2015 [facility] Carbidopa 25 MG / Levodopa 100 MG Oral Tablet [Sinemet 25-100] 2 tab, Route: PO, Drug Form: TAB, Dosing Weight 58.636, kg, QID, Start date: 06/15/15 21:00:00, Duration: 30 day, Stop date: 07/15/15 17:00:00, Patient's Own MedsNotes: Take with milk or food. (Same As: Sinemet) No Longer Active 06/16/2015 [facility] Nasal Saline 0.65% solution 2 spray, Route: NASAL, Q4H, Drug form: SOLN, Start date: 06/15/15 20:00:00, Duration: 30 day, Stop date: 07/15/15 16:00:00Notes: (Same as: [place], Deep Sea Nasal [place]). No Longer Active 06/16/2015 [facility] Miralax 17 gm, 1 pkt, Route: PO, Drug form: PWDR, Daily, Dosing Weight 63.636, kg, Start date: 06/15/15 19:30:00, Duration: 30 day, Stop date: 07/15/15 9:00:00 No Longer Active 06/16/2015 [facility] oxymetazoline nasal 0.05% spray 2 spray, Route: NASAL, Q6H, Drug form: SPRY, PRN Bleeding, Start date: 06/15/15 18:13:00, Duration: 3 day, Stop date: 06/18/15 18:12:00Notes: (Same as: Afrin) No Longer Active 06/15/2015 [facility] Bacitracin 1 appl, Route: TOP, Q6H, Drug form: OINT, PRN Bleeding, Start date: 06/15/15 18:12:00, Stop date: 07/15/15 18:11:00, APPLY TO CIRCUMCISION SITE; DosingSpecial Instructions: APPLY TO CIRCUMCISION SITE; Dosing No Longer Active 06/15/2015 [facility] oxymetazoline nasal 0.05% spray 2 spray, Route: NASAL, Q12H, Drug form: SPRY, PRN Nasal Congestion, Start date: 06/15/15 18:11:00, Duration: 3 day, Stop date: 06/18/15 18:10:00 Inactive 06/15/2015 [facility] tramadol hydrochloride 50 MG Oral Tablet [Ultram] 50 mg, 1 tab, Route: PO, Drug form: TAB, Q6H, Dosing Weight 63.636, kg, PRN Pain Score 6-10, Priority: Routine, Start date: 06/15/15 17:34:00, Duration: 7 day, Stop date: 06/22/15 17:33:00 No Longer Active 06/15/2015 [facility] Acetaminophen 325 MG / Hydrocodone Bitartrate 5 MG Oral Tablet [[place] 5/325] 1 tab, Route: PO, Drug Form: TAB, Dosing Weight 63.636, kg, Q6H, PRN Pain Score 1-3, Start date: 06/15/15 17:32:00, Duration: 30 day, Stop date: 07/15/15 17:31:00 Inactive 06/15/2015 [facility] Klonopin 0.25 mg, 0.5 tab, Route: PO, Drug form: TAB, Q8H, Dosing Weight 63.636, kg, PRN Anxiety, Start date: 06/15/15 17:31:00, Duration: 30 day, Stop date: 07/15/15 17:30:00Notes: (Same As: KlonoPIN) No Longer Active 06/15/2015 [facility] Nuedexta 1 cap, PO, Daily, 0 Refill(s) Active 06/15/2015 [facility] Klonopin 0.25 mg, PO, PRN, 0 Refill(s) Active 06/15/2015 [facility] quetiapine 25 mg, PO, BID, 0 Refill(s) Inactive 06/15/2015 [facility] docusate sodium 50 mg, PO, BID, 0 Refill(s) Inactive 06/15/2015 [facility] Xalatan 1 drp, BOTH EYES, Bedtime, 0 Refill(s) Active 06/15/2015 [facility] Carbidopa 25 MG / Levodopa 100 MG Disintegrating Tablet 2 tab, PO, BID, 2 tabs bid @ 8:00 am and 8:00 pm 1 tab bid @noon and 4:00pm, # 90 tab, 0 Refill(s)Special Instructions: 2 tabs bid @ 8:00 am and 8:00 pm 1 tab bid @noon and 4:00pm Active 06/15/2015 [facility] Omeprazole 20 mg, PO, Daily, 0 Refill(s) Inactive 06/15/2015 [facility] PARoxetine 25 mg oral tablet, extended release 25 mg=1 tab, PO, QAM, # 30 tab, 0 Refill(s) Active 06/15/2015 [facility] Miralax 17 gm, PO, Daily, 0 Refill(s) Active 06/15/2015 [facility] brinzolamide 1 drp, BOTH EYES, BID, 0 Refill(s) Active 06/15/2015 [facility] Trimethobenzamide hydrochloride 300 MG Oral Capsule [Tigan] 300 mg=1 cap, PO, TID, # 21 cap, 0 Refill(s) Active 06/15/2015 [facility] Levothyroxine Sodium 0.025 MG Oral Tablet [Synthroid] 25 microgram=1 tab, PO, Daily, 0 Refill(s) Active 06/15/2015 [facility] Docusate 100 mg, 1 cap, Route: PO, Drug form: CAP, BID, Dosing Weight 63.636, kg, Start date: 06/15/15 17:00:00, Duration: 30 day, Stop date: 07/15/15 9:00:00Notes: (Same as: Colace) (Do Not Crush) No Longer Active 06/15/2015 [facility] normal saline 0.9% IV 1,000 mL 1,000 mL, Rate: 75 ml/hr, Infuse over: 13.3 hr, Route: IV, Dosing Weight 63.636 kg, Total Volume: 1,000, Start date: 06/15/15 16:50:00, Duration: 30 day, Stop date: 07/15/15 16:49:00 No Longer Active 06/15/2015 [facility] Ondansetron 4 mg, 2 mL, Route: IVP, Drug form: INJ, Q6H, Dosing Weight 63.636, kg, PRN Nausea & Vomiting, Start date: 06/15/15 16:48:00, Duration: 30 day, Stop date: 07/15/15 16:47:00Notes: (Same as: Zofran) MEDICATION WASTE Product Size: 4 mg Product Wasted: ___ mg No Longer Active 06/15/2015 [facility] Lovenox 63.636 mg, Route: SUB-Q, Drug form: INJ, ONCE, Dosing Weight 63.636, kg, Priority: STAT, Start date: 06/15/15 13:37:00, Stop date: 06/15/15 13:37:00 Inactive 06/15/2015 [facility] Allergies, Adverse Reactions, Alerts Substance Category Reaction Severity Reaction type Status Date Reported Comments Source Codeine Sulfate Assertion Drug allergy Active [facility] [place] Immunizations Immunization Date Given Site Status Last Updated Comments Source Results Order Name Results Value Reference Range Date Interpretation Comments Source CHEM PANEL Alk Phos 52 unit/L 39 - 136 10/06/2016 [facility] [place] CHEM PANEL ALT 9 unit/L 0 - 65 10/06/2016 [facility] CHEM PANEL AST 15 unit/L 0 - 37 10/06/2016 [facility] [place] CHEM PANEL Globulin 3.2 g/dL 2.7 - 4.2 10/06/2016 [facility] [place] CHEM PANEL Total Protein 5.9 g/dL 6.4 - 8.4 10/06/2016 [facility] [place] CHEM PANEL A/G Ratio 0.8 0.7 - 1.6 10/06/2016 [facility] [place] CHEM PANEL Albumin Lvl 2.7 g/dL 3.5 - 5.0 10/06/2016 [facility] [place] CHEM PANEL Bili Total 0.3 mg/dL 0.2 - 1.3 10/06/2016 [facility] CHEM PANEL Bili Indirect 0.2 mg/dL 0.0 - 1.0 10/06/2016 [facility] CHEM PANEL Bili Direct 0.1 mg/dL 0.0 - 0.3 10/06/2016 [facility] CARDIAC ENZYMES BNP 538 pg/mL <=100 pg/mL 10/06/2016 [facility] CHEM PANEL Vitamin D, 25-OH, Total null 30 - 100 10/06/2016 [facility] [place] CHEM PANEL Uric Acid 5.2 mg/dL 2.5 - 7.0 10/06/2016 [facility] CHEM PANEL Phosphorus 3.4 mg/dL 2.5 - 4.5 10/06/2016 [facility] CHEM PANEL Magnesium Lvl 2.0 mg/dL 1.8 - 2.4 10/06/2016 [facility] HEMATOLOGY Sed Rate 9 mm/h 0 - 20 10/06/2016 Result Comment: "Corrected Report was called to Cindy Duong at 10/06/2016 07:55 by nf.Read Back OK." [facility] IMMUNOLOGY Homocyst Tot 10.2 umol/L 3.7 - 13.9 10/06/2016 [facility] LIPIDS LDL (Calculated) 91 mg/dL <=99 mg/dL 10/06/2016 [facility] LIPIDS Trig 90 mg/dL <=149 mg/dL 10/06/2016 [facility] LIPIDS Chol 152 mg/dL <=199 mg/dL 10/06/2016 [facility] LIPIDS HDL 43 mg/dL >=61 mg/dL 10/06/2016 [facility] LIPIDS VLDL 18 10/06/2016 [facility] LIPIDS CHD Risk 3.53 3.90 - 5.80 10/06/2016 [facility] SPECIAL CHEMISTRY Hgb A1C 5.3 % <=5.6 % 10/06/2016 [facility] [place] HEMATOLOGY INR 2.79 0.85 - 1.17 10/05/2016 [facility] HEMATOLOGY PT 29.9 s 12.0 - 14.7 10/05/2016 [facility] CHEM PANEL Magnesium Lvl 1.9 mg/dL 1.8 - 2.4 10/05/2016 [facility] CHEM PANEL eGFR 55 mL/min/1.73m2 10/05/2016 Result Comment: The eGFR is calculated using the [...] from the National Kidney Disease Education Program (NKDEP) which additionally recommends that when the eGFR is used in patients with extremes of body mass index for purposes of drug dosing, the eGFR should be multiplied by the estimated BMI. [facility] CHEM PANEL AST 14 unit/L 0 - 37 10/05/2016 [facility] CHEM PANEL ALT 6 unit/L 0 - 65 10/05/2016 [facility] [place] CHEM PANEL A/G Ratio 0.9 0.7 - 1.6 10/05/2016 [facility] CHEM PANEL Bili Total 0.5 mg/dL 0.2 - 1.3 10/05/2016 [facility] CHEM PANEL Alk Phos 52 unit/L 39 - 136 10/05/2016 [facility] CHEM PANEL Calcium Lvl 8.5 mg/dL 8.5 - 10.5 10/05/2016 [facility] CHEM PANEL AGAP 13.0 meq/L 10.0 - 20.0 10/05/2016 [facility] CHEM PANEL Globulin 3.2 g/dL 2.7 - 4.2 10/05/2016 [facility] CHEM PANEL Albumin Lvl 2.9 g/dL 3.5 - 5.0 10/05/2016 [facility] CHEM PANEL Total Protein 6.1 g/dL 6.4 - 8.4 10/05/2016 [facility] CHEM PANEL B/C Ratio 24 6 - 25 10/05/2016 [facility] CHEM PANEL Creatinine Lvl 0.96 mg/dL 0.50 - 1.40 10/05/2016 [facility] CHEM PANEL Glucose Lvl 74 mg/dL 70 - 99 10/05/2016 [facility] CHEM PANEL BUN 23 mg/dL 7 - 22 10/05/2016 [facility] CHEM PANEL CO2 25 meq/L 24 - 32 10/05/2016 [facility] CHEM PANEL Chloride Lvl 107 meq/L 95 - 109 10/05/2016 [facility] CHEM PANEL Potassium Lvl 4.0 meq/L 3.5 - 5.1 10/05/2016 [facility] CHEM PANEL Sodium Lvl 141 meq/L 135 - 145 10/05/2016 [facility] ANEMIA STUDY Vitamin B12 Lvl 881 pg/mL 254 - 1320 10/04/2016 [facility] CARDIAC ENZYMES Troponin-I null 0.00 - 0.40 10/04/2016 [facility] CHEM PANEL eGFR 69 mL/min/1.73m2 10/04/2016 Result Comment: The eGFR is calculated using the [...] from the National Kidney Disease Education Program (NKDEP) which additionally recommends that when the eGFR is used in patients with extremes of body mass index for purposes of drug dosing, the eGFR should be multiplied by the estimated BMI. [facility] CHEM PANEL Chloride Lvl 106 meq/L 95 - 109 10/04/2016 [facility] CHEM PANEL Potassium Lvl 3.7 meq/L 3.5 - 5.1 10/04/2016 [facility] CHEM PANEL BUN 28 mg/dL 7 - 22 10/04/2016 [facility] CHEM PANEL Sodium Lvl 142 meq/L 135 - 145 10/04/2016 [facility] CHEM PANEL Creatinine Lvl 0.80 mg/dL 0.50 - 1.40 10/04/2016 [facility] [place] CHEM PANEL AGAP 13.7 meq/L 10.0 - 20.0 10/04/2016 [facility] CHEM PANEL CO2 26 meq/L 24 - 32 10/04/2016 [facility] [place] CHEM PANEL Calcium Lvl 8.3 mg/dL 8.5 - 10.5 10/04/2016 [facility] [place] CHEM PANEL Glucose Lvl 81 mg/dL 70 - 99 10/04/2016 [facility] [place] HEMATOLOGY MCHC 32.5 g/dL 32.0 - 36.0 10/04/2016 [facility] [place] HEMATOLOGY Platelet 124 K/CMM 133 - 450 10/04/2016 [facility] [place] HEMATOLOGY RDW 14.7 % 11.5 - 14.5 10/04/2016 [facility] [place] HEMATOLOGY MPV 9.5 fL 7.4 - 10.4 10/04/2016 [facility] [place] HEMATOLOGY RBC 4.37 M/CMM 4.20 - 5.40 10/04/2016 [facility] HEMATOLOGY MCH 29.0 pg 27.0 - 31.0 10/04/2016 [facility] [place] HEMATOLOGY Hgb 12.7 g/dL 12.0 - 16.0 10/04/2016 [facility] [place] HEMATOLOGY MCV 89.2 fL 80.0 - 98.0 10/04/2016 [facility] [place] HEMATOLOGY Hct 39.0 % 36.0 - 48.0 10/04/2016 [facility] HEMATOLOGY WBC 5.3 K/CMM 3.7 - 10.4 10/04/2016 [facility] URINE AND STOOL UA Color Tanya 10/03/2016 [facility] URINE AND STOOL UA Urobilinogen <=1.0 mg/dL 0.1 - 1.0 10/03/2016 [facility] URINE AND STOOL UA Sq Epi None Seen 10/03/2016 [facility] URINE AND STOOL UA Bacteria Occasional /HPF None Seen /HPF 10/03/2016 [facility] URINE AND STOOL UA RBC 7 /HPF 0 - 2 10/03/2016 [facility] URINE AND STOOL UA WBC 42 /HPF 0 - 5 10/03/2016 [facility] URINE AND STOOL UA Leuk Est Small *ABN* (10/03/16 2:54 PM) Negative 10/03/2016 [facility] URINE AND STOOL UA Nitrite Negative (10/03/16 2:54 PM) Negative 10/03/2016 [facility] URINE AND STOOL UA Blood Negative (10/03/16 2:54 PM) Negative 10/03/2016 [facility] URINE AND STOOL UA Bili Negative *NA* (10/03/16 2:54 PM) Negative 10/03/2016 [facility] URINE AND STOOL UA Ketones Trace mg/dL Negative mg/dL 10/03/2016 [facility] URINE AND STOOL UA Glucose Negative mg/dL Negative mg/dL 10/03/2016 [facility] URINE AND STOOL UA Protein Negative mg/dL Negative mg/dL 10/03/2016 [facility] URINE AND STOOL UA pH 5.0 5.0 - 8.0 10/03/2016 [facility] [place] URINE AND STOOL UA Spec Grav 1.026 <=1.030 10/03/2016 [facility] URINE AND STOOL UA Turbidity Slight *ABN* (10/03/16 2:54 PM) Clear 10/03/2016 [facility] [place] CARDIAC ENZYMES Troponin-I null 0.00 - 0.40 10/03/2016 [facility] CARDIAC ENZYMES Total CK 87 unit/L 12 - 191 10/03/2016 [facility] CHEM PANEL Lactic Acid Lvl 1.0 mMol/L 0.5 - 2.2 10/03/2016 [facility] [place] CHEM PANEL Ammonia 13.0 umol/L <=45.0 uMol/L 10/03/2016 [facility] [place] CHEM PANEL ALT 21 unit/L 0 - 65 10/03/2016 [facility] CHEM PANEL eGFR 55 mL/min/1.73m2 10/03/2016 Result Comment: The eGFR is calculated using the [...] from the National Kidney Disease Education Program (NKDEP) which additionally recommends that when the eGFR is used in patients with extremes of body mass index for purposes of drug dosing, the eGFR should be multiplied by the estimated BMI. [facility] [place] CHEM PANEL Bili Total 0.6 mg/dL 0.2 - 1.3 10/03/2016 [facility] CHEM PANEL AST 18 unit/L 0 - 37 10/03/2016 [facility] CHEM PANEL Alk Phos 64 unit/L 39 - 136 10/03/2016 [facility] CHEM PANEL CO2 28 meq/L 24 - 32 10/03/2016 [facility] CHEM PANEL Total Protein 8.1 g/dL 6.4 - 8.4 10/03/2016 [facility] [place] CHEM PANEL Calcium Lvl 8.7 mg/dL 8.5 - 10.5 10/03/2016 [facility] CHEM PANEL Chloride Lvl 105 meq/L 95 - 109 10/03/2016 [facility] [place] CHEM PANEL Albumin Lvl 3.9 g/dL 3.5 - 5.0 10/03/2016 [facility] CHEM PANEL Glucose Lvl 86 mg/dL 70 - 99 10/03/2016 [facility] [place] CHEM PANEL Potassium Lvl 3.8 meq/L 3.5 - 5.1 10/03/2016 [facility] CHEM PANEL Sodium Lvl 142 meq/L 135 - 145 10/03/2016 [facility] CHEM PANEL BUN 29 mg/dL 7 - 22 10/03/2016 [facility] CHEM PANEL Creatinine Lvl 0.97 mg/dL 0.50 - 1.40 10/03/2016 [facility] CHEM PANEL A/G Ratio 0.9 0.7 - 1.6 10/03/2016 [facility] [place] CHEM PANEL AGAP 12.8 meq/L 10.0 - 20.0 10/03/2016 [facility] [place] CHEM PANEL Globulin 4.2 g/dL 2.7 - 4.2 10/03/2016 [facility] [place] CHEM PANEL B/C Ratio 30 6 - 25 10/03/2016 [facility] [place] HEMATOLOGY Monocytes # 0.4 K/CMM 0.0 - 0.8 10/03/2016 [facility] HEMATOLOGY Eosinophils # 0.1 K/CMM 0.0 - 0.5 10/03/2016 [facility] [place] HEMATOLOGY Basophils 1.0 % 0.0 - 1.0 10/03/2016 [facility] HEMATOLOGY Basophils # 0.1 K/CMM 0.0 - 0.2 10/03/2016 [facility] HEMATOLOGY Segs-Bands # 3.5 K/CMM 1.5 - 8.1 10/03/2016 [facility] HEMATOLOGY Lymphocytes # 1.9 K/CMM 1.0 - 5.5 10/03/2016 [facility] HEMATOLOGY Segs 59.2 % 45.0 - 75.0 10/03/2016 [facility] HEMATOLOGY Lymphocytes 31.8 % 20.0 - 40.0 10/03/2016 [facility] HEMATOLOGY Monocytes 6.9 % 2.0 - 12.0 10/03/2016 [facility] HEMATOLOGY Eosinophils 1.1 % 0.0 - 4.0 10/03/2016 [facility] HEMATOLOGY PT 25.6 s 12.0 - 14.7 10/03/2016 [facility] HEMATOLOGY INR 2.29 0.85 - 1.17 10/03/2016 [facility] HEMATOLOGY RBC 4.81 M/CMM 4.20 - 5.40 10/03/2016 [facility] HEMATOLOGY WBC 5.9 K/CMM 3.7 - 10.4 10/03/2016 [facility] [place] HEMATOLOGY MCV 89.1 fL 80.0 - 98.0 10/03/2016 [facility] HEMATOLOGY Hct 42.9 % 36.0 - 48.0 10/03/2016 [facility] HEMATOLOGY Hgb 13.6 g/dL 12.0 - 16.0 10/03/2016 [facility] MCHC 31.8 g/dL 32.0 - 36.0 10/03/2016 [facility] MCH 28.3 pg 27.0 - 31.0 10/03/2016 [facility] MPV 10.1 fL 7.4 - 10.4 10/03/2016 [facility] Platelet 143 K/CMM 133 - 450 10/03/2016 [facility] RDW 14.8 % 11.5 - 14.5 10/03/2016 [facility] PTT 47.1 s 22.9 - 35.8 10/03/2016 [facility] [place] Chest 1view DX Chest 1view DX EXAM: Chest 1view DX DATE: 10/03/2016 5:53 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 Stable prominent cardiac silhouette and mediastinum. Marked atherosclerotic thoracic aorta. The lungs are emphysematous. Biapical pleural thickening is present. No focal consolidation, significant pleural effusion or pneumothorax. Marked high riding of the humeral heads suggesting chronic rotator cuff tear. 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 2-D coronal and sagittal reformatted images were obtained. Asymmetric positioning accentuates the extra-axial subarachnoid spaces on the right. Age- appropriate cortical and cerebellar volume loss is noted with compensatory enlargement of the ventricles and subarachnoid spaces. Vascular calcification is noted at the carotid siphons and/or vertebrobasilar arteries. There is no acute cortical infarction, hemorrhage or mass lesion noted. No mass effect or midline shift. Ventricles are otherwise normal in size, shape and position. The base of skull and bony calvarium are intact. Minimal chronic microangiopathic change of the periventricular white matter. 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 Chronic ischemic change at the external capsules bilaterally. Mastoid air cells and paranasal sinuses are otherwise clear. IMPRESSION: 1. No acute intracranial abnormality. 2. Senescent and chronic ischemic changes are noted intracranially similar to the previous exam. SL: [id number] 10/03/2016 - - Read by: Bill Posada MD Dictated Date/time: 10/03/16 15:07 Electronically Signed by: Bill Posada MD 10/03/16 15:12 FINAL REPORT [facility] [place] CHEM PANEL Magnesium Lvl 2.1 mg/dL 1.8 - 2.4 06/20/2015 [facility] CHEM PANEL Phosphorus 3.4 mg/dL 2.5 - 4.5 06/20/2015 [facility] ELECTROLYTES AGAP 13.2 meq/L 10.0 - 20.0 06/20/2015 [facility] ELECTROLYTES eGFR 61 mL/min/1.73m2 06/20/2015 Result Comment: The eGFR is calculated using the [...] from the National Kidney Disease Education Program (NKDEP) which additionally recommends that when the eGFR is used in patients with extremes of body mass index for purposes of drug dosing, the eGFR should be multiplied by the estimated BMI. [facility] ELECTROLYTES Glucose Lvl 71 mg/dL 70 - 99 06/20/2015 [facility] ELECTROLYTES Creatinine Lvl 0.9 mg/dL 0.5 - 1.4 06/20/2015 [facility] ELECTROLYTES Sodium Lvl 144 meq/L 135 - 145 06/20/2015 [facility] ELECTROLYTES Potassium Lvl 4.2 meq/L 3.5 - 5.1 06/20/2015 [facility] ELECTROLYTES BUN 23 mg/dL 7 - 22 06/20/2015 [facility] ELECTROLYTES Chloride Lvl 109 meq/L 95 - 109 06/20/2015 [facility] ELECTROLYTES CO2 26 meq/L 24 - 32 06/20/2015 [facility] ELECTROLYTES Calcium Lvl 8.6 mg/dL 8.5 - 10.5 06/20/2015 [facility] HEMATOLOGY INR 1.30 0.85 - 1.17 06/20/2015 [facility] HEMATOLOGY PT 16.3 s 12.0 - 14.7 06/20/2015 [facility] HEMATOLOGY Basophils 0.4 % 0.0 - 1.0 06/20/2015 [facility] HEMATOLOGY Segs-Bands # 4.0 K/CMM 1.5 - 8.1 06/20/2015 [facility] HEMATOLOGY Lymphocytes # 1.5 K/CMM 1.0 - 5.5 06/20/2015 [facility] HEMATOLOGY Eosinophils # 0.1 K/CMM 0.0 - 0.5 06/20/2015 [facility] HEMATOLOGY Monocytes # 0.4 K/CMM 0.0 - 0.8 06/20/2015 [facility] HEMATOLOGY Lymphocytes 25.1 % 20.0 - 40.0 06/20/2015 [facility] HEMATOLOGY Monocytes 6.8 % 2.0 - 12.0 06/20/2015 [facility] HEMATOLOGY Eosinophils 2.4 % 0.0 - 4.0 06/20/2015 [facility] HEMATOLOGY Segs 65.3 % 45.0 - 75.0 06/20/2015 [facility] HEMATOLOGY WBC 6.1 K/CMM 3.7 - 10.4 06/20/2015 [facility] HEMATOLOGY MPV 10.7 fL 7.4 - 10.4 06/20/2015 [facility] HEMATOLOGY Platelet 121 K/CMM 133 - 450 06/20/2015 [facility] HEMATOLOGY RDW 14.6 % 11.5 - 14.5 06/20/2015 [facility] HEMATOLOGY MCHC 31.7 g/dL 32.0 - 36.0 06/20/2015 [facility] HEMATOLOGY MCH 30.2 pg 27.0 - 31.0 06/20/2015 [facility] HEMATOLOGY Hgb 8.7 g/dL 12.0 - 16.0 06/20/2015 [facility] HEMATOLOGY RBC 2.88 M/CMM 4.20 - 5.40 06/20/2015 [facility] HEMATOLOGY MCV 95.3 fL 80.0 - 98.0 06/20/2015 [facility] HEMATOLOGY Hct 27.4 % 36.0 - 48.0 06/20/2015 [facility] CHEM PANEL Phosphorus 3.5 mg/dL 2.5 - 4.5 06/19/2015 [facility] CHEM PANEL eGFR 70 mL/min/1.73m2 06/19/2015 Result Comment: The eGFR is calculated using the [...] from the National Kidney Disease Education Program (NKDEP) which additionally recommends that when the eGFR is used in patients with extremes of body mass index for purposes of drug dosing, the eGFR should be multiplied by the estimated BMI. [facility] CHEM PANEL Calcium Lvl 8.3 mg/dL 8.5 - 10.5 06/19/2015 [facility] CHEM PANEL CO2 26 meq/L 24 - 32 06/19/2015 [facility] CHEM PANEL Potassium Lvl 4.6 meq/L 3.5 - 5.1 06/19/2015 [facility] CHEM PANEL Sodium Lvl 146 meq/L 135 - 145 06/19/2015 [facility] CHEM PANEL Creatinine Lvl 0.8 mg/dL 0.5 - 1.4 06/19/2015 [facility] CHEM PANEL BUN 21 mg/dL 7 - 22 06/19/2015 [facility] CHEM PANEL Chloride Lvl 113 meq/L 95 - 109 06/19/2015 [facility] CHEM PANEL Glucose Lvl 87 mg/dL 70 - 99 06/19/2015 [facility] CHEM PANEL AGAP 11.6 meq/L 10.0 - 20.0 06/19/2015 [facility] CHEM PANEL Magnesium Lvl 2.0 mg/dL 1.8 - 2.4 06/19/2015 [facility] HEMATOLOGY Eosinophils # 0.2 K/CMM 0.0 - 0.5 06/19/2015 [facility] HEMATOLOGY Segs-Bands # 3.3 K/CMM 1.5 - 8.1 06/19/2015 [facility] HEMATOLOGY Basophils 0.6 % 0.0 - 1.0 06/19/2015 [facility] HEMATOLOGY Lymphocytes # 2.1 K/CMM 1.0 - 5.5 06/19/2015 [facility] HEMATOLOGY Monocytes # 0.4 K/CMM 0.0 - 0.8 06/19/2015 [facility] HEMATOLOGY Eosinophils 2.9 % 0.0 - 4.0 06/19/2015 [facility] HEMATOLOGY Monocytes 7.0 % 2.0 - 12.0 06/19/2015 [facility] HEMATOLOGY Lymphocytes 34.5 % 20.0 - 40.0 06/19/2015 [facility] HEMATOLOGY Segs 55.0 % 45.0 - 75.0 06/19/2015 [facility] HEMATOLOGY INR 1.24 0.85 - 1.17 06/19/2015 [facility] HEMATOLOGY PT 15.7 s 12.0 - 14.7 06/19/2015 [facility] HEMATOLOGY Hgb 9.0 g/dL 12.0 - 16.0 06/19/2015 [facility] HEMATOLOGY MCV 95.1 fL 80.0 - 98.0 06/19/2015 [facility] HEMATOLOGY Hct 27.5 % 36.0 - 48.0 06/19/2015 [facility] HEMATOLOGY RBC 2.89 M/CMM 4.20 - 5.40 06/19/2015 [facility] HEMATOLOGY WBC 5.9 K/CMM 3.7 - 10.4 06/19/2015 [facility] HEMATOLOGY Platelet 122 K/CMM 133 - 450 06/19/2015 [facility] HEMATOLOGY RDW 14.7 % 11.5 - 14.5 06/19/2015 [facility] HEMATOLOGY MPV 10.0 fL 7.4 - 10.4 06/19/2015 [facility] HEMATOLOGY MCHC 32.6 g/dL 32.0 - 36.0 06/19/2015 [facility] HEMATOLOGY MCH 31.1 pg 27.0 - 31.0 06/19/2015 [facility] HEMATOLOGY PTT 47.5 s 22.9 - 35.8 06/18/2015 [facility] HEMATOLOGY PTT 73.8 s 22.9 - 35.8 06/18/2015 [facility] HEMATOLOGY Lymphocytes 19.0 % 20.0 - 40.0 06/18/2015 [facility] HEMATOLOGY Monocytes 6.8 % 2.0 - 12.0 06/18/2015 [facility] HEMATOLOGY Segs 72.5 % 45.0 - 75.0 06/18/2015 [facility] HEMATOLOGY Basophils 0.6 % 0.0 - 1.0 06/18/2015 [facility] HEMATOLOGY Eosinophils # 0.1 K/CMM 0.0 - 0.5 06/18/2015 [facility] HEMATOLOGY Eosinophils 1.1 % 0.0 - 4.0 06/18/2015 [facility] HEMATOLOGY Monocytes # 0.5 K/CMM 0.0 - 0.8 06/18/2015 [facility] HEMATOLOGY Segs-Bands # 5.4 K/CMM 1.5 - 8.1 06/18/2015 [facility] HEMATOLOGY Lymphocytes # 1.4 K/CMM 1.0 - 5.5 06/18/2015 [facility] HEMATOLOGY RDW 14.3 % 11.5 - 14.5 06/18/2015 [facility] HEMATOLOGY Platelet 123 K/CMM 133 - 450 06/18/2015 [facility] HEMATOLOGY MCHC 33.2 g/dL 32.0 - 36.0 06/18/2015 [facility] HEMATOLOGY MCH 31.0 pg 27.0 - 31.0 06/18/2015 [facility] HEMATOLOGY MPV 9.8 fL 7.4 - 10.4 06/18/2015 [facility] HEMATOLOGY WBC 7.4 K/CMM 3.7 - 10.4 06/18/2015 [facility] HEMATOLOGY RBC 2.97 M/CMM 4.20 - 5.40 06/18/2015 [facility] HEMATOLOGY MCV 93.2 fL 80.0 - 98.0 06/18/2015 [facility] HEMATOLOGY Hgb 9.2 g/dL 12.0 - 16.0 06/18/2015 [facility] HEMATOLOGY Hct 27.7 % 36.0 - 48.0 06/18/2015 [facility] HEMATOLOGY PT 15.7 s 12.0 - 14.7 06/18/2015 [facility] HEMATOLOGY INR 1.24 0.85 - 1.17 06/18/2015 [facility] HEMATOLOGY PTT null 22.9 - 35.8 06/18/2015 Result Comment: Critical Result(s) called to ky mendoza at 06/18/2015 07:05 bysss. Read back OK. [facility] CHEM PANEL Phosphorus 2.7 mg/dL 2.5 - 4.5 06/18/2015 [facility] CHEM PANEL Magnesium Lvl 1.7 mg/dL 1.8 - 2.4 06/18/2015 [facility] ELECTROLYTES AGAP 11.5 meq/L 10.0 - 20.0 06/18/2015 [facility] ELECTROLYTES eGFR 70 mL/min/1.73m2 06/18/2015 Result Comment: The eGFR is calculated using the [...] from the National Kidney Disease Education Program (NKDEP) which additionally recommends that when the eGFR is used in patients with extremes of body mass index for purposes of drug dosing, the eGFR should be multiplied by the estimated BMI. [facility] ELECTROLYTES Calcium Lvl 8.4 mg/dL 8.5 - 10.5 06/18/2015 [facility] ELECTROLYTES CO2 25 meq/L 24 - 32 06/18/2015 [facility] ELECTROLYTES Chloride Lvl 111 meq/L 95 - 109 06/18/2015 [facility] ELECTROLYTES Potassium Lvl 3.5 meq/L 3.5 - 5.1 06/18/2015 [facility] ELECTROLYTES Sodium Lvl 144 meq/L 135 - 145 06/18/2015 [facility] ELECTROLYTES Creatinine Lvl 0.8 mg/dL 0.5 - 1.4 06/18/2015 [facility] ELECTROLYTES BUN 21 mg/dL 7 - 22 06/18/2015 [facility] ELECTROLYTES Glucose Lvl 96 mg/dL 70 - 99 06/18/2015 [facility] PARATHYROID PROFILE Ca Norm WB 1.12 mMol/L 1.05 - 1.25 06/18/2015 [facility] PARATHYROID PROFILE Ca Ion WB 1.12 mMol/L 1.05 - 1.25 06/18/2015 [facility] URINE AND STOOL UA Urobilinogen <=1.0 mg/dL 0.1 - 1.0 06/17/2015 [facility] URINE AND STOOL UA Sq Epi None Seen 06/17/2015 [facility] URINE AND STOOL UA Glucose Negative mg/dL Negative mg/dL 06/17/2015 [facility] URINE AND STOOL UA Protein Negative mg/dL Negative mg/dL 06/17/2015 [facility] URINE AND STOOL UA Bili Negative *NA* (06/17/15 2:31 PM) Negative 06/17/2015 [facility] URINE AND STOOL UA Ketones Negative mg/dL Negative mg/dL 06/17/2015 [facility] URINE AND STOOL UA WBC 1 /HPF 0 - 5 06/17/2015 [facility] URINE AND STOOL UA Leuk Est Negative (06/17/15 2:31 PM) Negative 06/17/2015 [facility] URINE AND STOOL UA Nitrite Negative (06/17/15 2:31 PM) Negative 06/17/2015 [facility] URINE AND STOOL UA Blood Negative (06/17/15 2:31 PM) Negative 06/17/2015 [facility] URINE AND STOOL UA Turbidity Clear (06/17/15 2:31 PM) Clear 06/17/2015 [facility] URINE AND STOOL UA Color Light Yellow *NA* (06/17/15 2:31 PM) Yellow 06/17/2015 [facility] URINE AND STOOL UA Spec Grav 1.007 <=1.030 06/17/2015 [facility] URINE AND STOOL UA pH 6.0 5.0 - 8.0 06/17/2015 [facility] CARDIAC ENZYMES CK MB Index 1.4 0.0 - 2.5 06/17/2015 [facility] CARDIAC ENZYMES CK MB 1.6 ng/mL 0.5 - 3.6 06/17/2015 [facility] CARDIAC ENZYMES Troponin-I null 0.00 - 0.40 06/17/2015 [facility] CARDIAC ENZYMES Troponin-T null 0.000 - 0.100 06/17/2015 [facility] CARDIAC ENZYMES Total CK 115 unit/L 12 - 191 06/17/2015 [facility] CARDIAC ENZYMES CK MB Index 1.3 0.0 - 2.5 06/17/2015 [facility] CARDIAC ENZYMES CK MB 1.6 ng/mL 0.5 - 3.6 06/17/2015 [facility] CARDIAC ENZYMES Troponin-T null 0.000 - 0.100 06/17/2015 [facility] CARDIAC ENZYMES Total CK 119 unit/L 12 - 191 06/17/2015 [facility] CARDIAC ENZYMES Troponin-I null 0.00 - 0.40 06/17/2015 [facility] THYROID PANEL TSH 1.290 uIU/mL 0.360 - 3.740 06/17/2015 [facility] Chest 1view DX Chest 1view DX Chest one view, June 16, 2015 at 2003. HISTORY: 79-year-old female with arrhythmias. FINDINGS: Comparison is made to June 15. The cardiomediastinal silhouette is stable with aortic calcification. The lungs are clear except for minimal left lower lobe platelike atelectasis. There is mild biapical pleural thickening. No pleural effusions are seen. Note is made of advanced degenerative changes of both shoulders. IMPRESSION: No change since yesterday evening. 06/16/2015 - - Read by: Laquita Alonso MD Dictated Date/time: 06/17/15 12:38 Electronically Signed by: Laquita Alonso MD 06/17/15 15:17 FINAL REPORT [facility] Brain wo contrast CT Brain wo contrast CT EXAM: CT HEAD WITHOUT CONTRAST DATE: Jun 16, 2015 05:47:41 PM INDICATION: Drowsiness TECHNIQUE: Noncontrast images of the brain are obtained from the skull base to the vertex. Axial bone algorithm reconstruction images were also provided. COMPARISON: None. FINDINGS: Evaluation is somewhat limited due to image degradation from motion artifacts. There is diffuse [id number] cerebral volume loss causing mild ex vacuo dilatation of the ventricular system and extra-axial fluid spaces. Multiple confluent and scattered areas of hypodensity in periventricular, deep white matter likely related to chronic microvascular ischemic changes. There is no evidence of cerebral edema, hemorrhage, mass effect, midline shift. Basal cisterns are preserved. No evidence of downward herniation. Mild left maxillary sinus because of thickening, remaining visualized paranasal sinuses are clear. Visualized mastoid air cells are clear. Visualized orbits appear grossly unremarkable. Calcified atherosclerotic changes are seen in bilateral cavernous internal carotid arteries. Skull vault is intact. There is diffuse calvarial thickening. IMPRESSION: 1. No definite acute territorial infarct or intracranial hemorrhage. 2. Diffuse mild to moderate cerebral volume loss. Sequela of chronic microvascular ischemic changes as detailed above. 06/16/2015 - - Read by: Jordy Lincoln MD Dictated Date/time: 06/17/15 19:04 Electronically Signed by: Jordy Lincoln MD 06/17/15 19:06 FINAL REPORT [facility] URINE AND STOOL UA Urobilinogen <=1.0 mg/dL 0.1 - 1.0 06/16/2015 [facility] URINE AND STOOL UA Color Yellow *NA* (06/16/15 1:29 AM) Yellow 06/16/2015 [facility] URINE AND STOOL UA Turbidity Clear (06/16/15 1:29 AM) Clear 06/16/2015 [facility] URINE AND STOOL UA Protein Negative mg/dL Negative mg/dL 06/16/2015 [facility] URINE AND STOOL UA pH 7.0 5.0 - 8.0 06/16/2015 [facility] URINE AND STOOL UA Spec Grav 1.016 <=1.030 06/16/2015 [facility] URINE AND STOOL UA Ketones Negative mg/dL Negative mg/dL 06/16/2015 [facility] URINE AND STOOL UA Bili Negative *NA* (06/16/15 1:29 AM) Negative 06/16/2015 [facility] URINE AND STOOL UA Blood Trace *ABN* (06/16/15 1:29 AM) Negative 06/16/2015 [facility] URINE AND STOOL UA Nitrite Negative (06/16/15 1:29 AM) Negative 06/16/2015 [facility] URINE AND STOOL UA Glucose Negative mg/dL Negative mg/dL 06/16/2015 [facility] URINE AND STOOL UA Leuk Est Moderate *ABN* (06/16/15 1:29 AM) Negative 06/16/2015 [facility] Chest 1view DX Chest 1view DX EXAM: CHEST ONE VIEW: DATE: 06/15/2015, 1745 hours INDICATION: Abnormal chest sounds COMPARISON: None FINDINGS: A semierect AP view of the chest was performed. The lungs are well expanded and clear. No pleural effusion or pneumothorax is seen. The heart size and pulmonary vascularity are within normal limits. Aortic ectasia is noted with diffuse aortic calcifications. The bones are osteoporotic, and degenerative changes are noted at the shoulders bilaterally. IMPRESSION: No acute abnormality in the chest. 06/15/2015 - - Read by: Rina Hebert MD Dictated Date/time: 06/15/15 20:24 Electronically Signed by: Rina Hebert MD 06/15/15 20:26 FINAL REPORT [facility] ELECTROLYTES AGAP 12.3 meq/L 10.0 - 20.0 06/15/2015 [facility] ELECTROLYTES eGFR 61 mL/min/1.73m2 06/15/2015 Result Comment: The eGFR is calculated using the [...] from the National Kidney Disease Education Program (NKDEP) which additionally recommends that when the eGFR is used in patients with extremes of body mass index for purposes of drug dosing, the eGFR should be multiplied by the estimated BMI. [facility] [place] ELECTROLYTES Calcium Lvl 8.5 mg/dL 8.5 - 10.5 06/15/2015 [facility] ELECTROLYTES CO2 29 meq/L 24 - 32 06/15/2015 [facility] ELECTROLYTES Creatinine Lvl 0.9 mg/dL 0.5 - 1.4 06/15/2015 [facility] ELECTROLYTES BUN 21 mg/dL 7 - 22 06/15/2015 [facility] ELECTROLYTES Glucose Lvl 115 mg/dL 70 - 99 06/15/2015 [facility] ELECTROLYTES Chloride Lvl 105 meq/L 95 - 109 06/15/2015 [facility] ELECTROLYTES Potassium Lvl 4.3 meq/L 3.5 - 5.1 06/15/2015 [facility] ELECTROLYTES Sodium Lvl 142 meq/L 135 - 145 06/15/2015 [facility] HEMATOLOGY Segs 81.7 % 45.0 - 75.0 06/15/2015 [facility] HEMATOLOGY Monocytes 4.7 % 2.0 - 12.0 06/15/2015 [facility] HEMATOLOGY Lymphocytes 12.2 % 20.0 - 40.0 06/15/2015 [facility] Segs-Bands # 6.5 K/CMM 1.5 - 8.1 06/15/2015 [facility] HEMATOLOGY Eosinophils 0.8 % 0.0 - 4.0 06/15/2015 [facility] HEMATOLOGY Monocytes # 0.4 K/CMM 0.0 - 0.8 06/15/2015 [facility] HEMATOLOGY Lymphocytes # 1.0 K/CMM 1.0 - 5.5 06/15/2015 [facility] HEMATOLOGY Eosinophils # 0.1 K/CMM 0.0 - 0.5 06/15/2015 [facility] Basophils 0.6 % 0.0 - 1.0 06/15/2015 [facility] PTT 34.8 s 22.9 - 35.8 06/15/2015 [facility] INR 1.11 0.85 - 1.17 06/15/2015 [facility] PT 14.4 s 12.0 - 14.7 06/15/2015 [facility] RDW 14.3 % 11.5 - 14.5 06/15/2015 [facility] MCH 31.2 pg 27.0 - 31.0 06/15/2015 [facility] MCV 92.5 fL 80.0 - 98.0 06/15/2015 [facility] Hct 38.7 % 36.0 - 48.0 06/15/2015 [facility] RBC 4.19 M/CMM 4.20 - 5.40 06/15/2015 [facility] Hgb 13.1 g/dL 12.0 - 16.0 06/15/2015 [facility] MPV 10.0 fL 7.4 - 10.4 06/15/2015 [facility] MCHC 33.8 g/dL 32.0 - 36.0 06/15/2015 [facility] Platelet 149 K/CMM 133 - 450 06/15/2015 [facility] WBC 7.9 K/CMM 3.7 - 10.4 06/15/2015 [facility] [place] Ext Lower Venous Doppler Unilat US Ext Lower Venous Doppler Unilat US Left Lower Extremity Doppler. History: Pain, Limb Comparison: None. Findings: Grayscale, color Doppler, and spectral wave form analysis was performed of the left lower extremity. Echogenic thrombus in the mid to distal left superficial femoral vein is seen. There is normal compressibility and wave form throughout the remaining left lower extremity. Impression: 1. Deep venous thrombosis in the mid to distal left superficial femoral vein. SL: 16 06/15/2015 - - Read by: Juan Luis Ziegler MD Dictated Date/time: 06/15/15 11:18 Electronically Signed by: Juan Luis Ziegler MD 06/15/15 11:20 FINAL REPORT [facility] [place] Tibia fibula series DX Tibia fibula series DX Examination: Left tibia/fibula, 2 views History: Pain in limb Comparison: None. Findings: Two views of the left tibia/fibula show no acute bony fracture or joint dislocation. Chronic healed fractures of the distal tibial diaphysis as well throughout the fibular diaphysis are seen. Soft tissues are unremarkable. Bones are demineralized. IMPRESSION: No acute bony abnormality of the left tibia/fibula. SL: 06/15/2015 - - Read by: JuanL uis Ziegler MD Dictated Date/time: 06/15/15 11:39 Electronically Signed by: Juan Luis Ziegler MD 06/15/15 11:40 FINAL REPORT [facility] [place] Knee 1-2 Views unilateral DX Knee 1-2 Views unilateral DX Examination: Left knee, 2 views History: Pain in limb Comparison: None. Findings: Two views of the left knee show no acute bony fracture or joint dislocation. Severe lateral femorotibial and patellofemoral compartment osteoarthrosis is seen with joint space narrowing and marginal osseous spurring. Moderate medial femorotibial compartment osteoarthrosis is also seen. Chronic healed fracture of the proximal fibular diaphysis is partially visualized. Large knee joint effusion is seen. Bones are demineralized. IMPRESSION: Severe osteoarthritic changes of the left knee without acute bony abnormality. SL: 06/15/2015 - - Read by: Juan Luis Ziegler MD Dictated Date/time: 06/15/15 11:37 Electronically Signed by: Juan Luis Ziegler MD 06/15/15 11:38 FINAL REPORT [facility] [place] Vital Signs Vital Sign Value Date Comments Source Systolic (mm Hg) 133 10/07/2016 [facility] Diastolic (mm Hg) 63 10/07/2016 [facility] Respitory Rate 18 10/07/2016 [facility] Heart Rate 80 10/07/2016 [facility] Temperature Oral (F) 97.5 F 10/07/2016 [facility] Temperature Oral (F) 98.5 F 10/06/2016 [facility] Heart Rate 56 10/06/2016 [facility] Systolic (mm Hg) 135 10/06/2016 [facility] Diastolic (mm Hg) 70 10/06/2016 [facility] Respitory Rate 18 10/06/2016 [facility] Systolic (mm Hg) 129 10/06/2016 [facility] Diastolic (mm Hg) 63 10/06/2016 [facility] Respitory Rate 18 10/06/2016 [facility] Heart Rate 61 10/06/2016 [facility] Weight 55.909 10/04/2016 [facility] Weight 55.909 10/04/2016 [facility] Temperature Oral (F) 97.4 F 10/04/2016 [facility] Weight 63.636 10/03/2016 [facility] BMI Calculated 25.66 10/03/2016 [facility] Height 157.48 cm 10/03/2016 [facility] Heart Rate 60 06/20/2015 [facility] Temperature Oral (F) 97.5 F 06/20/2015 [facility] Diastolic (mm Hg) 55 06/20/2015 [facility] Respitory Rate 16 06/20/2015 [facility] Heart Rate 62 06/20/2015 [facility] Respitory Rate 18 06/20/2015 [facility] Systolic (mm Hg) 123 06/20/2015 [facility] Diastolic (mm Hg) 76 06/20/2015 [facility] Systolic (mm Hg) 128 06/20/2015 [facility] Diastolic (mm Hg) 97 06/20/2015 [facility] Heart Rate 67 06/20/2015 [facility] Respitory Rate 18 06/20/2015 [facility] Systolic (mm Hg) 101 06/20/2015 [facility] Temperature Oral (F) 97.8 F 06/19/2015 [facility] Temperature Oral (F) 98.3 F 06/19/2015 [facility] Weight 58.636 06/15/2015 [facility] BMI Calculated 25.25 06/15/2015 [facility] Height 152.4 cm 06/15/2015 [facility] Respitory Rate 16 06/15/2015 [facility] Systolic (mm Hg) 135 06/15/2015 [facility] Diastolic (mm Hg) 84 06/15/2015 [facility] Heart Rate 94 06/15/2015 [facility] Weight 63.636 06/15/2015 [facility] BMI Calculated 24.85 06/15/2015 [facility] Height 160.02 cm 06/15/2015 [facility] Respitory Rate 18 06/15/2015 [facility] Heart Rate 98 06/15/2015 [facility] Systolic (mm Hg) 148 06/15/2015 [facility] Diastolic (mm Hg) 84 06/15/2015 [facility] Encounters Location Location Details Encounter Type Encounter Number Reason For Visit Attending Provider ADM Date DC Date Status Source [facility] [place] [facility] [id number] [place]is 06/15/2015 06/15/2015 [facility] Inpatient [id number] Boyirais Crumpjame 06/15/2015 06/20/2015 [facility] Inpatient [id number] Bess Johnson 10/03/2016 10/07/2016 [facility] Procedures Procedure Code Date Perfomer Comments Source Hemorrhoidectomy [id number] [facility] Hysterectomy [id number] [facility] Laminectomy [id number] [facility] Hemorrhoidectomy [id number] [facility] Hysterectomy [id number] [facility] Laminectomy [id number] [facility]
--- OUTSIDE RECORDS SUMMARY | 2018-09-10 21:12 | XMS REPORT | Summary of Care ---
Author Author [facility] Organization [facility] Address Unknown Phone Unavailable Encounter DAVE Brown(ROSALVA) [phone] Date(s): 06/15/15 - 06/15/15 [facility] [address] [place] [address]- Discharge Disposition: DC[facility] to [facility] Attending Physician: Haja Landis MD Vital Signs Most recent to 1 2 oldest [Reference Range]: Height 160.02 cm (06/15/15 9:18 AM) Most recent to 1 2 oldest [Reference Range]: Blood Pressure 135/84 mmHg 148/84 mmHg [90-140/60-90 mmHg] (06/15/15 3:19 PM) *HI* (06/15/15 9:18 AM) Most recent to 1 2 oldest [Reference Range]: Respiratory Rate 16 BRMIN 18 BRMIN [14-20 BRMIN] (06/15/15 3:19 PM) (06/15/15 9:18 AM) Most recent to 1 2 oldest [Reference Range]: Peripheral Pulse 94 bpm 98 bpm Rate [60-100 bpm] (06/15/15 3:19 PM) (06/15/15 9:18 AM) Most recent to 1 2 oldest [Reference Range]: Weight 63.636 kg (06/15/15 9:18 AM) Most recent to 1 2 oldest [Reference Range]: Body Mass Index 24.85 m2 (06/15/15 9:18 AM) Problem List Condition Effective Dates Status Health Status Informant Anxiety(Confirmed) Resolved Hypothyroidism(Confi Resolved rmed) Parkinsons Resolved disease(Confirmed) Allergies, Adverse Reactions, Alerts Substance Reaction Severity Status Codeine Sulfate Active Medications Lovenox 63.636 mg, Route: SUB-Q, Drug form: INJ, ONCE, Dosing Weight 63.636, kg, Priorit y: STAT, Start date: 06/15/15 13:37:00, Stop date: 06/15/15 13:37:00 Start Date: 06/15/15 Stop Date: 06/15/15 Status: Completed Results ELECTROLYTES Most recent to 1 oldest [Reference Range]: Sodium Lvl [135-145 142 mEq/L mEq/L] (06/15/15 10:28 AM) Potassium Lvl 4.3 mEq/L [3.5-5.1 mEq/L] (06/15/15 10:28 AM) Chloride Lvl [95-109 105 mEq/L mEq/L] (06/15/15 10:28 AM) CO2 [24-32 mEq/L] 29 mEq/L (06/15/15 10:28 AM) AGAP [10.0-20.0 12.3 mEq/L mEq/L] (06/15/15 10:28 AM) CHEM PANEL Most recent to 1 oldest [Reference Range]: Creatinine Lvl 0.9 mg/dL [0.5-1.4 mg/dL] (06/15/15 10:28 AM) eGFR 61 mL/min/1.73m2 1 *NA* (06/15/15 10:28 AM) BUN [7-22 mg/dL] 21 mg/dL (06/15/15 10:28 AM) Glucose Lvl [70-99 115 mg/dL mg/dL] *HI* (06/15/15 10:28 AM) Calcium Lvl 8.5 mg/dL [8.5-10.5 mg/dL] (06/15/15 10:28 AM) 1Result Comment: The eGFR is calculated using [...] be mul tiplied by the estimated BMI. HEMATOLOGY Most recent to 1 oldest [Reference Range]: WBC [3.7-10.4 K/CMM] 7.9 K/CMM (06/15/15 10:28 AM) RBC [4.20-5.40 4.19 M/CMM M/CMM] *LOW* (06/15/15:28 AM) Hgb [12.0-16.0 g/dL] 13.1 g/dL (06/15/15 10:28 AM) Hct [36.0-48.0 %] 38.7 % (06/15/15 10:28 AM) MCV [80.0-98.0 fL] 92.5 fL (06/15/15: AM) MCH [27.0-31.0 pg] 31.2 pg *HI* (06/15/15:28 AM) MCHC [32.0-36.0 33.8 g/dL g/dL] (06/15/15 10:28 AM) RDW [11.5-14.5 %] 14.3 % (06/15/15 10:28 AM) Platelet [133-450 149 K/CMM K/CMM] (06/15/15 10:28 AM) MPV [7.4-10.4 fL] 10.0 fL (06/15/15 10:28 AM) Segs [45.0-75.0 %] 81.7 % *HI* (06/15/15 10:28 AM) Lymphocytes 12.2 % [20.0-40.0 %] *LOW* (06/15/15 10:28 AM) Monocytes [2.0-12.0 4.7 % %] (06/15/15 10:28 AM) Eosinophils [0.0-4.0 0.8 % %] (06/15/15 10:28 AM) Basophils [0.0-1.0 0.6 % %] (06/15/15 10:28 AM) Segs-Bands # 6.5 K/CMM [1.5-8.1 K/CMM] (06/15/15 10:28 AM) Lymphocytes # 1.0 K/CMM [1.0-5.5 K/CMM] (06/15/15 10:28 AM) Monocytes # [0.0-0.8 0.4 K/CMM K/CMM] (06/15/15 10:28 AM) Eosinophils # 0.1 K/CMM [0.0-0.5 K/CMM] (06/15/15 10:28 AM) PT [12.0-14.7 14.4 seconds seconds] (06/15/15 10:28 AM) INR [0.85-1.17] 1.11 (06/15/15 10:28 AM) PTT [22.9-35.8 34.8 seconds seconds] (06/15/15 10:28 AM) Immunizations No data available for this section Procedures Procedure Date Related Diagnosis Body Site Hemorrhoidectomy Hysterectomy Laminectomy Social History Social History Type Response Substance Abuse Use: None. Alcohol Never Smoking Status Never smoker; Exposure to Tobacco Smoke None; Cigarette Smoking Last 365 Days No; Reg Smoking Cessation Counseling No Assessment and Plan No data available for this section
--- OUTSIDE RECORDS SUMMARY | 2018-09-10 21:12 | XMS REPORT | Summary of Care ---
Author Author [facility] Organization [facility] Address Unknown Phone Unavailable Encounter HQ Kevin(ROSALVA) [phone] Date(s): 10/03/16 - 10/06/16 [facility] [address] [place] [address]- Discharge Disposition: Home or Self Care Attending Physician: Bess Johnson MD Admitting Physician: Bess Johnson MD Vital Signs 1 2 3 Most recent to oldest [Reference Range]: 157.48 cm (10/03/16 2:15 PM) Height 97.5 DegF (10/06/16 9:45 PM) 98.5 DegF (10/06/16 4:00 PM) 97.4 DegF (10/04/16 5:01 AM) Temperature Oral [96.4-99.1 DegF] 133/63 mmHg (10/06/16 9:45 PM) 135/70 mmHg (10/06/16 4:00 PM) 129/63 mmHg (10/06/16 8:00 AM) Blood Pressure [90-140/60-90 mmHg] 18 BRMIN (10/06/16 9:45 PM) 18 BRMIN (10/06/16 4:00 PM) 18 BRMIN (10/06/16 8:00 AM) Respiratory Rate [14-20 BRMIN] 80 bpm (10/06/16 9:45 PM) 56 bpm *LOW* (10/06/16 4:00 PM) 61 bpm (10/06/16 8:00 AM) Peripheral Pulse Rate [60-100 bpm] 55.909 kg (10/04/16 7:08 AM) 55.909 kg (10/04/16 7:07 AM) 63.636 kg (10/03/16 2:15 PM) Weight 25.66 m2 (10/03/16 2:15 PM) Body Mass Index Problem List Condition Effective Dates Status Health Status Informant Anxiety(Confirmed) Resolved Hypothyroidism(Confi Resolved rmed) Parkinsons Resolved disease(Confirmed) Allergies, Adverse Reactions, Alerts Substance Reaction Severity Status Codeine Sulfate Active Medications *Pts own med Nuplazid 17mg* *Pts own med Nuplazid 17mg*, 34 mg, 2 tab, Drug form: MISC, Route: PO, Daily, 9:00:00 GROUP PRODUCT MANAGER, Duration: 30 day, Stop date: 11/02/16 9:00:00 GROUP PRODUCT MANAGER Start Date: 10/04/16 Stop Date: 10/06/16 Status: Discontinued *Remind pt to bring home meds Nuedexta, Tigan,docusate* *Remind pt to bring home meds Nuedexta, Tigan,docusate*, Reminder, Drug form: [place], Route: MISC, QSHIFT, 10/04/16 0:00:00 GROUP PRODUCT MANAGER, Duration: 30 day, Stop date: 10/10 03/24 16:00:00 GROUP PRODUCT MANAGER Start Date: 10/04/16 Stop Date: 10/04/16 Status: Deleted *RN pls verify frequency of home med Xalatan w/ pt* *RN pls verify frequency of home med Xalatan w/ pt*, Reminder, Drug form: MISC, Route: MISC, QSHIFT, 10/04/16 0:00:00 GROUP PRODUCT MANAGER, Duration: 30 day, Stop date: 11/02/16 16:00:00 GROUP PRODUCT MANAGER Start Date: 10/04/16 Stop Date: 10/04/16 Status: Deleted brinzolamide ophthalmic 1 drp, Route: BOTH EYES, BID, Start date: 10/04/16 9:00:00 GROUP PRODUCT MANAGER, Duration: 30 day , Stop date: 11/02/16 17:00:00 GROUP PRODUCT MANAGER Start Date: 10/04/16 Stop Date: 10/03/16 Status: Deleted cefTRIAXone 1 gm, Route: IVPB, Drug form: PDR/INJ, ONCE, Dosing Weight 63.636, kg, Priority: STAT, Start date: 10/03/16 15:24:00 GROUP PRODUCT MANAGER, Stop date: 10/03/16 15:24:00 GROUP PRODUCT MANAGER Start Date: 10/03/16 Stop Date: 10/03/16 Status: Completed Claritin 10 mg, Route: PO, Drug form: TAB, Daily, Dosing Weight 63.636, kg, Start date: 12/04/15 9:00:00 GROUP PRODUCT MANAGER, Duration: 30 day, Stop date: 11/02/16 9:00:00 GROUP PRODUCT MANAGER Start Date: 10/04/16 Stop Date: 10/03/16 Status: Deleted digoxin 0.25 mg, 1 mL, Route: IVP, Drug form: INJ, Q8H, Dosing Weight 55.909, kg, Start date: 10/05/16 20:00:00 GROUP PRODUCT MANAGER, Stop date: 10/06/16 16:00:00 GROUP PRODUCT MANAGER Notes: (Same as: Lanoxin) Start Date: 10/05/16 Stop Date: 10/06/16 Status: Completed digoxin 0.25 mg, 1 mL, Route: IVP, Drug form: INJ, Q8H, Dosing Weight 55.909, kg, Start date: 10/04/16 20:00:00 GROUP PRODUCT MANAGER, Duration: 4 doses or times, Stop date: 10/05/16 16: 00:00 GROUP PRODUCT MANAGER Notes: (Same as: Lanoxin) Start Date: 10/04/16 Stop Date: 10/05/16 Status: Deleted docusate sodium 50 mg oral capsule 50 mg, 1 cap, Route: PO, Drug form: CAP, TID, Dosing Weight 63.636, kg, Start da te: 10/04/16 9:00:00 GROUP PRODUCT MANAGER, Duration: 30 day, Stop date: 11/02/16 17:00:00 GROUP PRODUCT MANAGER Start Date: 10/04/16 Stop Date: 10/06/16 Status: Discontinued hydrALAZINE 10 mg, 0.5 mL, Route: IV, Drug form: INJ, Q4H, Dosing Weight 55.909, kg, PRN Hyp ertension, Start date: 10/05/16 19:28:00 GROUP PRODUCT MANAGER, Duration: 30 day, Stop date: 11/04 19:27:00 GROUP PRODUCT MANAGER Notes: (Same as: Apresoline)Push over 5 minutes Start Date: 10/05/16 Stop Date: 10/06/16 Status: Discontinued KlonoPIN 0.5 mg, 1 tab, Route: PO, Drug form: TAB, Daily, Dosing Weight 63.636, kg, Start date: 10/03/16 18:00:00 GROUP PRODUCT MANAGER, Duration: 30 day, Stop date: 11/02/16 16:00:00 GROUP PRODUCT MANAGER Notes: (Same As: KlonoPIN) Start Date: 10/03/16 Stop Date: 10/06/16 Status: Discontinued Levaquin 500 mg oral tablet 500 mg=1 tab, PO, Q24H, X 7 day, # 7 tab, 0 Refill(s) Start Date: 10/06/16 Stop Date: 10/13/16 Status: Ordered LORazepam 1 mg, Route: IVP, Drug form: INJ, ONCE, Dosing Weight 63.636, kg, Priority: STAT , Start date: 10/03/16 14:28:00 GROUP PRODUCT MANAGER, Stop date: 10/03/16 14:28:00 GROUP PRODUCT MANAGER Start Date: 10/03/16 Stop Date: 10/03/16 Status: Completed LORazepam 1 mg, 0.5 mL, Route: IVP, Drug form: INJ, Q15Min, Dosing Weight 63.636, kg, PRN Seizure, Start date: 10/03/16 17:25:00 GROUP PRODUCT MANAGER, Duration: 30 day, Stop date: 6 17:24:00 GROUP PRODUCT MANAGER Notes: (Same as: Ativan) Start Date: 10/03/16 Stop Date: 10/06/16 Status: Discontinued Lovenox 40 mg, Route: SUB-Q, Drug form: INJ, [id number], Dosing Weight 63.636, kg, Start d ate: 10/03/16 18:00:00 GROUP PRODUCT MANAGER, Duration: 30 day, Stop date: 11/01/16 18:00:00 GROUP PRODUCT MANAGER Start Date: 10/03/16 Stop Date: 10/03/16 Status: Canceled metoprolol 5 mg/5 ml INJ 5 mg, 5 mL, Route: IV, Drug form: INJ, Q2H, Dosing Weight 55.909, kg, PRN Tachyc ardia, Start date: 10/05/16 19:28:00 GROUP PRODUCT MANAGER, Duration: 30 day, Stop date: 11/04/16 19:27:00 GROUP PRODUCT MANAGER Notes: (Same as: Lopressor)Push over 2 minutes Start Date: 10/05/16 Stop Date: 10/06/16 Status: Discontinued MiraLax 17 gm, 1 pkt, Route: PO, Drug form: PWDR, Daily, Dosing Weight 63.636, kg, Start date: 10/04/16 9:00:00 GROUP PRODUCT MANAGER, Duration: 30 day, Stop date: 11/02/16 9:00:00 GROUP PRODUCT MANAGER Notes: Dissolve in 8 oz of water or juice.(Same as: Miralax) Start Date: 10/04/16 Stop Date: 10/06/16 Status: Discontinued morphine Sulfate 2 mg, 1 mL, Route: IVP, Drug form: INJ, Q2H, Dosing Weight 55.909, kg, PRN Chest Pain, Start date: 10/05/16 19:28:00 GROUP PRODUCT MANAGER, Duration: 30 day, Stop date: 11/04/16 19:27:00 GROUP PRODUCT MANAGER Notes: (Same as:MORPhine Sulfate) Start Date: 10/05/16 Stop Date: 10/06/16 Status: Discontinued Nitrostat 0.4 mg sublingual tablet 0.4 mg, 1 tab, Route: SL, Drug form: TAB, Q5Min, Dosing Weight 55.909, kg, PRN C hest Pain, Start date: 10/05/16 19:28:00 GROUP PRODUCT MANAGER, Duration: 3 doses or times, Stop d ate: Limited # of times Notes: (Same as:Nitroquick, Nitrostat)"Do Not Crush" Sublingual tablet Start Date: 10/05/16 Stop Date: 10/06/16 Status: Discontinued Nuedexta 1 cap, Route: PO, Dosing Weight 63.636, kg, QNoon, Start date: 10/04/16 12:00:00 GROUP PRODUCT MANAGER, Duration: 30 day, Stop date: 11/02/16 12:00:00 GROUP PRODUCT MANAGER Start Date: 10/04/16 Stop Date: 10/04/16 Status: Deleted Nuplazid 17 mg Nuplazid 17 mg, 2 tab, PO, Daily, Refill(s) 0 Start Date: 10/03/16 Status: Ordered omeprazole 20 mg, Route: PO, Drug form: ECTAB, BID, Dosing Weight 63.636, kg, Start date: 1 12/04/15 9:00:00 GROUP PRODUCT MANAGER, Duration: 30 day, Stop date: 11/02/16 17:00:00 GROUP PRODUCT MANAGER Start Date: 10/04/16 Stop Date: 10/03/16 Status: Deleted PARoxetine 25 mg, Route: PO, Drug form: ERTAB, QAM, Dosing Weight 63.636, kg, Start date: 1 12/04/15 9:00:00 GROUP PRODUCT MANAGER, Duration: 30 day, Stop date: 11/02/16 9:00:00 GROUP PRODUCT MANAGER Start Date: 10/04/16 Stop Date: 10/03/16 Status: Deleted Paxil 20 mg, 2 tab, Route: PO, Drug form: TAB, Daily, Start date: 10/04/16 9:00:00 GROUP PRODUCT MANAGER , Duration: 30 day, Stop date: 11/02/16 9:00:00 GROUP PRODUCT MANAGER Notes: (Same as: Paxil) Start Date: 10/04/16 Stop Date: 10/06/16 Status: Discontinued Protonix 40 mg, 1 tab, Route: PO, Drug form: ECTAB, BID, Start date: 10/04/16 9:00:00 GROUP PRODUCT MANAGER , Duration: 30 day, Stop date: 11/02/16 17:00:00 GROUP PRODUCT MANAGER Notes: Tablet should not be chewed or crushed.(Same as: Protonix) Start Date: 10/04/16 Stop Date: 10/06/16 Status: Discontinued pt own Dextromethorphan-Quinidine (Nuedexta) pt own Dextromethorphan-Quinidine (Nuedexta), 20mg-10mg, Drug form: MISC, Route: PO, QNoon, 10/04/16 12:00:00 GROUP PRODUCT MANAGER, Duration: 30 day, Stop date: 11/02/16 12:00:00 GROUP PRODUCT MANAGER Start Date: 10/04/16 Stop Date: 10/06/16 Status: Discontinued Rocephin + sodium chloride 0.9% INJ 100 mL 1 gm, Route: IVPB, [id number], Dosing Weight 63.636, kg, Start date: 10/04/16 16:00 :00 GROUP PRODUCT MANAGER, Duration: 30 day, Stop date: 11/02/16 16:00:00 GROUP PRODUCT MANAGER Notes: (Same As: Rocephin).Use with 100 mL NS and infuse over 30 min MEDICA TION WASTE Product Size: 1000 mgProduct Wasted: ___ mg Start Date: 10/04/16 Stop Date: 10/06/16 Status: Discontinued Saline Flush 0.9% 10 mL, Route: IVP, Drug Form: INJ, Dosing Weight 63.636, kg, PRN, PRN Line Flush , Start date: 10/03/16 14:40:00 GROUP PRODUCT MANAGER, Duration: 30 day, Stop date: 11/02/16 14:39 :00 GROUP PRODUCT MANAGER Notes: (Same as: BD Posiflush) Start Date: 10/03/16 Stop Date: 10/03/16 Status: Discontinued SEROquel 50 mg, 2 tab, Route: PO, Drug form: TAB, Bedtime, Dosing Weight 55.909, kg, Star t date: 10/04/16 21:00:00 GROUP PRODUCT MANAGER, Duration: 30 day, Stop date: 11/02/16 21:00:00 CS T Notes: (Same as: SEROquel) Start Date: 10/04/16 Stop Date: 10/06/16 Status: Discontinued Sinemet 25 mg-100 mg oral tablet 1 tab, PO, QID, 0 Refill(s) Start Date: 10/03/16 Status: Ordered Sinemet 25 mg-100 mg oral tablet 1 tab, Route: PO, Drug Form: TAB, Dosing Weight 63.636, kg, QID, Start date: 21:00:00 GROUP PRODUCT MANAGER, Duration: 30 day, Stop date: 11/02/16 17:00:00 GROUP PRODUCT MANAGER Notes: Take with milk or food. (Same As: Sinemet) Start Date: 10/03/16 Stop Date: 10/06/16 Status: Discontinued sodium chloride 0.9% 1000 ml INJ 1,000 mL 1,000 mL, Rate: 75 ml/hr, Infuse over: 13.3 hr, Route: IV, Dosing Weight 63.636 kg, Total Volume: 1,000, Start date: 10/03/16 17:51:00 GROUP PRODUCT MANAGER, Duration: 30 day, St op date: 11/02/16 17:50:00 GROUP PRODUCT MANAGER Start Date: 10/03/16 Stop Date: 10/05/16 Status: Discontinued Synthroid 25 microgram, 1 tab, Route: PO, Drug form: TAB, Q630AM, Dosing Weight 63.636, kg , Start date: 10/04/16 6:30:00 GROUP PRODUCT MANAGER, Duration: 30 day, Stop date: 11/02/16 6:30:0 0 GROUP PRODUCT MANAGER Notes: Take 1 hour before or 2 hours after meal; Enteral feeds may interefere wi th the absorption of this medication. (Same as:Levothroid) Start Date: 10/04/16 Stop Date: 10/06/16 Status: Discontinued Tigan 300 mg, 1 cap, Route: PO, Drug form: CAP, TID-Before Meals, Dosing Weight 63.636 , kg, Start date: 10/04/16 7:30:00 GROUP PRODUCT MANAGER, Duration: 30 day, Stop date: 11/02/16 16 :30:00 GROUP PRODUCT MANAGER Notes: For nausea and vomiting. Start Date: 10/04/16 Stop Date: 10/06/16 Status: Discontinued Trusopt 1 drp, Route: BOTH EYES, BID, Drug form: SOLN, Start date: 10/04/16 9:00:00 GROUP PRODUCT MANAGER, Duration: 30 day, Stop date: 11/02/16 17:00:00 GROUP PRODUCT MANAGER Notes: (Same as: Trusopt) Start Date: 10/04/16 Stop Date: 10/06/16 Status: Discontinued Tylenol 650 mg, 2 tab, Route: PO, Drug form: TAB, Q6H, Dosing Weight 63.636, kg, PRN For Temp > 100.4 F, Start date: 10/03/16 17:29:00 GROUP PRODUCT MANAGER, Duration: 30 day, Stop date: 11/02/16 17:28:00 GROUP PRODUCT MANAGER Notes: Do not exceed 4 gm/day. (Same as: Tylenol) Start Date: 10/03/16 Stop Date: 10/06/16 Status: Discontinued Vitamin B Complex with C and Calcium oral tablet 1 tab, PO, TID, 0 Refill(s) Start Date: 10/03/16 Status: Ordered warfarin 2 mg, 1 tab, Route: PO, Drug form: TAB, Q5PM, Dosing Weight 63.636, kg, Start da te: 10/04/16 17:00:00 GROUP PRODUCT MANAGER, Duration: 30 day, Stop date: 11/02/16 17:00:00 GROUP PRODUCT MANAGER Notes: Nurse to ensure documentation of patient education per anticoagulation po licy.Avoid large intake of vitamin-K containing foods diet.(Same As: Coumadin)WA TEDDY: F/P - P Waste Black; E - P Waste Black Start Date: 10/04/16 Stop Date: 10/06/16 Status: Discontinued warfarin 1 mg oral tablet 2 mg=2 tab, PO, Q5PM, 0 Refill(s) Start Date: 10/03/16 Status: Ordered Xalatan 1 drp, Route: BOTH EYES, ONCE, Drug form: SOLN, Start date: 10/03/16 21:00:00 CS T, Stop date: 10/03/16 21:00:00 GROUP PRODUCT MANAGER Notes: Keep refrigerated. (Same as:Xalatan) Start Date: 10/03/16 Stop Date: 10/03/16 Status: Completed Xalatan 1 drp, Route: BOTH EYES, BID, Start date: 10/04/16 9:00:00 GROUP PRODUCT MANAGER, Duration: 30 day , Stop date: 11/02/16 17:00:00 GROUP PRODUCT MANAGER Start Date: 10/04/16 Stop Date: 10/05/16 Status: Voided With Results Xalatan 1 drp, Route: Each Affected Eye, QPM, Drug form: SOLN, Start date: 10/04/16 17:0 0:00 GROUP PRODUCT MANAGER, Duration: 30 day, Stop date: 11/02/16 17:00:00 GROUP PRODUCT MANAGER Notes: Keep refrigerated. (Same as:Xalatan) Start Date: 10/04/16 Stop Date: 10/04/16 Status: Discontinued xalatan eye drops xalatan eye drops, 1drop, Drug form: MISC, Route: Each Affected Eye, QPM, 17:00:00 GROUP PRODUCT MANAGER, Duration: 30 day, Stop date: 11/02/16 17:00:00 GROUP PRODUCT MANAGER Start Date: 10/04/16 Stop Date: 10/06/16 Status: Discontinued Zofran 4 mg, 2 mL, Route: IVP, Drug form: INJ, Q6H, Dosing Weight 63.636, kg, PRN Nause a, Start date: 10/03/16 17:29:00 GROUP PRODUCT MANAGER, Duration: 30 day, Stop date: 11/02/16 17:2 8:00 GROUP PRODUCT MANAGER Notes: (Same as: Zofran) MEDICATION WASTE Product Size: 4 mgProduct Was barry: ___ mg Start Date: 10/03/16 Stop Date: 10/06/16 Status: Discontinued ZyrTEC 10 mg, 2 tab, Route: PO, Drug form: TAB, Daily, Start date: 10/04/16 9:00:00 GROUP PRODUCT MANAGER , Duration: 30 day, Stop date: 11/02/16 9:00:00 GROUP PRODUCT MANAGER Notes: (Same As: Zyrtec) Start Date: 10/04/16 Stop Date: 10/06/16 Status: Discontinued Results ELECTROLYTES 1 2 3 Most recent to oldest [Reference Range]: 141 mEq/L (10/05/16 3:51 AM) 142 mEq/L (10/04/16 3:39 AM) 142 mEq/L (10/03/16 2:47 PM) Sodium Lvl [135-145 mEq/L] 4.0 mEq/L (10/05/16 3:51 AM) 3.7 mEq/L (10/04/16 3:39 AM) 3.8 mEq/L (10/03/16 2:47 PM) Potassium Lvl [3.5-5.1 mEq/L] 107 mEq/L (10/05/16 3:51 AM) 106 mEq/L (10/04/16 3:39 AM) 105 mEq/L (10/03/16 2:47 PM) Chloride Lvl [95-109 mEq/L] 25 mEq/L (10/05/16 3:51 AM) 26 mEq/L (10/04/16 3:39 AM) 28 mEq/L (10/03/16 2:47 PM) CO2 [24-32 mEq/L] 13.0 mEq/L (10/05/16 3:51 AM) 13.7 mEq/L (10/04/16 3:39 AM) 12.8 mEq/L (10/03/16 2:47 PM) AGAP [10.0-20.0 mEq/L] CHEM PANEL 1 2 3 Most recent to oldest [Reference Range]: 0.96 mg/dL (10/05/16 3:51 AM) 0.80 mg/dL (10/04/16 3:39 AM) 0.97 mg/dL (10/03/16 2:47 PM) Creatinine Lvl [0.50-1.40 mg/dL] 55 mL/min/1.73m2 1 *NA* (10/05/16 3:51 AM) 69 mL/min/1.73m2 2 *NA* (10/04/16 3:39 AM) 55 mL/min/1.73m2 3 *NA* (10/03/16 2:47 PM) eGFR 23 mg/dL *HI* (10/05/16 3:51 AM) 28 mg/dL *HI* (10/04/16 3:39 AM) 29 mg/dL *HI* (10/03/16 2:47 PM) BUN [7-22 mg/dL] 24 (10/05/16 3:51 AM) 30 *HI* (10/03/16 2:47 PM) B/C Ratio [6-25] 74 mg/dL (10/05/16 3:51 AM) 81 mg/dL (10/04/16 3:39 AM) 86 mg/dL (10/03/16 2:47 PM) Glucose Lvl [70-99 mg/dL] 5.2 mg/dL (10/05/16 9:41 PM) Uric Acid [2.5-7.0 mg/dL] 5.9 g/dL *LOW* (10/06/16 4:23 AM) 6.1 g/dL *LOW* (10/05/16 3:51 AM) 8.1 g/dL (10/03/16 2:47 PM) Total Protein [6.4-8.4 g/dL] 2.7 g/dL *LOW* (10/06/16 4:23 AM) 2.9 g/dL *LOW* (10/05/16 3:51 AM) 3.9 g/dL (10/03/16 2:47 PM) Albumin Lvl [3.5-5.0 g/dL] 3.2 g/dL (10/06/16 4:23 AM) 3.2 g/dL (10/05/16 3:51 AM) 4.2 g/dL (10/03/16 2:47 PM) Globulin [2.7-4.2 g/dL] 0.8 (10/06/16 4:23 AM) 0.9 (10/05/16 3:51 AM) 0.9 (10/03/16 2:47 PM) A/G Ratio [0.7-1.6] 8.5 mg/dL (10/05/16 3:51 AM) 8.3 mg/dL *LOW* (10/04/16 3:39 AM) 8.7 mg/dL (10/03/16 2:47 PM) Calcium Lvl [8.5-10.5 mg/dL] 3.4 mg/dL (10/05/16 9:41 PM) Phosphorus [2.5-4.5 mg/dL] 2.0 mg/dL (10/05/16 9:41 PM) 1.9 mg/dL (10/05/16 3:51 AM) Magnesium Lvl [1.8-2.4 mg/dL] 9 unit/L (10/06/16 4:23 AM) 6 unit/L (10/05/16 3:51 AM) 21 unit/L (10/03/16 2:47 PM) ALT [0-65 unit/L] 15 unit/L (10/06/16 4:23 AM) 14 unit/L (10/05/16 3:51 AM) 18 unit/L (10/03/16 2:47 PM) AST [0-37 unit/L] 52 unit/L (10/06/16 4:23 AM) 52 unit/L (10/05/16 3:51 AM) 64 unit/L (10/03/16 2:47 PM) Alk Phos [39-136 unit/L] 0.3 mg/dL (10/06/16 4:23 AM) 0.5 mg/dL (10/05/16 3:51 AM) 0.6 mg/dL (10/03/16 2:47 PM) Bili Total [0.2-1.3 mg/dL] 0.1 mg/dL (10/06/16 4:23 AM) Bili Direct [0.0-0.3 mg/dL] 0.2 mg/dL (10/06/16 4:23 AM) Bili Indirect [0.0-1.0 mg/dL] 13.0 uMol/L (10/03/16 2:47 PM) Ammonia [<=45.0 uMol/L] 1.0 mMol/L (10/03/16 2:47 PM) Lactic Acid Lvl [0.5-2.2 mMol/L] >96 ng/mL (10/05/16 9:41 PM) Vitamin D, 25-OH, Total [30-100 ng/mL] 1Result Comment: The eGFR is calculated using [...] 3 Most recent to oldest [Reference Range]: 87 unit/L (10/03/16 2:47 PM) Total CK [12-191 unit/L] <0.02 ng/mL (10/04/16 3:39 AM) <0.02 ng/mL (10/03/16 2:47 PM) Troponin-I [0.00-0.40 ng/mL] 538 pg/mL *HI* (10/05/16 9:41 PM) BNP [<=100 pg/mL] LIPIDS 1 2 3 Most recent to oldest [Reference Range]: 3.53 *LOW* (10/05/16 9:41 PM) CHD Risk [3.90-5.80] 152 mg/dL (10/05/16 9:41 PM) Chol [<=199 mg/dL] 90 mg/dL (10/05/16 9:41 PM) Trig [<=149 mg/dL] 43 mg/dL *LOW* (10/05/16 9:41 PM) HDL [>=61 mg/dL] 91 mg/dL (10/05/16 9:41 PM) LDL (Calculated) [<=99 mg/dL] 18 *NA* (10/05/16 9:41 PM) VLDL SPECIAL CHEMISTRY 1 2 3 Most recent to oldest [Reference Range]: 5.3 % (10/05/16 9:41 PM) Hgb A1C [<=5.6 %] ANEMIA STUDY 1 2 3 Most recent to oldest [Reference Range]: 881 pg/mL (10/04/16 3:39 AM) Vitamin B12 Lvl [254-1320 pg/mL] URINE AND STOOL 1 2 3 Most recent to oldest [Reference Range]: Slight *ABN* (10/03/16 2:54 PM) UA Turbidity [Clear] Tanya *NA* (10/03/16 2:54 PM) UA Color 5.0 (10/03/16 2:54 PM) UA pH [5.0-8.0] 1.026 (10/03/16 2:54 PM) UA Spec Grav [<=1.030] Negative mg/dL *NA* (10/03/16 2:54 PM) UA Glucose [Negative mg/dL] Negative (10/03/16 2:54 PM) UA Blood [Negative] Trace mg/dL *ABN* (10/03/16 2:54 PM) UA Ketones [Negative mg/dL] Negative mg/dL (10/03/16 2:54 PM) UA Protein [Negative mg/dL] <=1.0 mg/dL *NA* (10/03/16 2:54 PM) UA Urobilinogen [0.1-1.0 mg/dL] Negative *NA* (10/03/16 2:54 PM) UA Bili [Negative] Small *ABN* (10/03/16 2:54 PM) UA Leuk Est [Negative] Negative (10/03/16 2:54 PM) UA Nitrite [Negative] 42 /HPF *HI* (10/03/16 2:54 PM) UA WBC [0-5 /HPF] 7 /HPF *HI* (10/03/16 2:54 PM) UA RBC [0-2 /HPF] Occasional /HPF *NA* (10/03/16 2:54 PM) UA Bacteria [None Seen /HPF] None Seen *NA* (10/03/16 2:54 PM) UA Sq Epi IMMUNOLOGY 1 2 3 Most recent to oldest [Reference Range]: 10.2 uMol/L (10/05/16 9:41 PM) Homocyst Tot [3.7-13.9 uMol/L] HEMATOLOGY 1 2 3 Most recent to oldest [Reference Range]: 5.3 K/CMM (10/04/16 3:39 AM) 5.9 K/CMM (10/03/16 2:47 PM) WBC [3.7-10.4 K/CMM] 4.37 M/CMM (10/04/16 3:39 AM) 4.81 M/CMM (10/03/16 2:47 PM) RBC [4.20-5.40 M/CMM] 12.7 g/dL (10/04/16 3:39 AM) 13.6 g/dL (10/03/16 2:47 PM) Hgb [12.0-16.0 g/dL] 39.0 % (10/04/16 3:39 AM) 42.9 % (10/03/16 2:47 PM) Hct [36.0-48.0 %] 89.2 fL (10/04/16 3:39 AM) 89.1 fL (10/03/16 2:47 PM) MCV [80.0-98.0 fL] 29.0 pg (10/04/16 3:39 AM) 28.3 pg (10/03/16 2:47 PM) MCH [27.0-31.0 pg] 32.5 g/dL (10/04/16 3:39 AM) 31.8 g/dL *LOW* (10/03/16 2:47 PM) MCHC [32.0-36.0 g/dL] 14.7 % *HI* (10/04/16 3:39 AM) 14.8 % *HI* (10/03/16 2:47 PM) RDW [11.5-14.5 %] 124 K/CMM *LOW* (10/04/16 3:39 AM) 143 K/CMM (10/03/16 2:47 PM) Platelet [133-450 K/CMM] 9.5 fL (10/04/16 3:39 AM) 10.1 fL (10/03/16 2:47 PM) MPV [7.4-10.4 fL] 59.2 % (10/03/16 2:47 PM) Segs [45.0-75.0 %] 31.8 % (10/03/16 2:47 PM) Lymphocytes [20.0-40.0 %] 6.9 % (10/03/16 2:47 PM) Monocytes [2.0-12.0 %] 1.1 % (10/03/16 2:47 PM) Eosinophils [0.0-4.0 %] 1.0 % (10/03/16 2:47 PM) Basophils [0.0-1.0 %] 3.5 K/CMM (10/03/16 2:47 PM) Segs-Bands # [1.5-8.1 K/CMM] 1.9 K/CMM (10/03/16 2:47 PM) Lymphocytes # [1.0-5.5 K/CMM] 0.4 K/CMM (10/03/16 2:47 PM) Monocytes # [0.0-0.8 K/CMM] 0.1 K/CMM (10/03/16 2:47 PM) Eosinophils # [0.0-0.5 K/CMM] 0.1 K/CMM (10/03/16 2:47 PM) Basophils # [0.0-0.2 K/CMM] 9 mm/hr 1 (10/05/16 9:41 PM) Sed Rate [0-20 mm/hr] 29.9 seconds *HI* (10/05/16 4:10 PM) 25.6 seconds *HI* (10/03/16 2:47 PM) PT [12.0-14.7 seconds] 2.79 *HI* (10/05/16 4:10 PM) 2.29 *HI* (10/03/16 2:47 PM) INR [0.85-1.17] 47.1 seconds *HI* (10/03/16 2:47 PM) PTT [22.9-35.8 seconds] 1Result Comment: "Corrected Report was called to Cindy Duong at 10/06/2016 07:55 by [email or web address].Read Back OK." Immunizations No data available for this section Procedures Procedure Date Related Diagnosis Body Site Hemorrhoidectomy Hysterectomy Laminectomy Social History Social History Type Response Substance Abuse Use: None. Alcohol Never Smoking Status Never smoker; Exposure to Tobacco Smoke None; Cigarette Smoking Last 365 Days No; Reg Smoking Cessation Counseling No Assessment and Plan Extracted from: Title: Discharge Summary * Author: Bess Johnson MD Date: 10/06/16 Discharge Information Discharge to home Condition stable Medications see med reconciliation form Consultants; neurology, cardiology Discharge Plan Discharge to home Follow up with her neurologist as an outpatient Follow-up with her primary care physician this week for close post hospital follow-up In the event of any worsening symptoms patient's family was advised to bring her back for further evaluation Discharge summary took greater than 35 minutes Extracted from: Title: Neurology Progress Note Author: Silva Fink Date: 10/06/16 Luciano KOWALSKI Impression and Plan 1. metabolic encephalopathy 2. UTI 3. Parkinson's ds 4. Hypothyroidism 5. A Flutter PLAN: pt is on antibiotics reportedly she is at her baseline c/w current meds supportive care dvt prophylaxis neurology to follow Extracted from: Title: General Admission H&P * Author: Bess Johnson MD Date: 10/03/16 Impression and Plan 1. Metabolic encephalopathy likely secondary to UTI and dehydration-CT head negative, neuro has been consulted, IV Rocephin, monitor urine cultures, IV fluids, pain control, antinausea medication 2. Urinary tract infection-UA consistent with UTI, continue IV Rocephin, monitor urine cultures, white count normal, afebrile 3. Dehydration-clinically dehydrated, IV fluids, encourage by mouth 4. Parkinson's disease-continue home medications, neurology consulted 5. Hypothyroidism-get TSH, continue same home dose of Synthroid 6. Prophylaxis-start on Lovenox 7. Fluid electrolytes nutrients-IV fluids, regular diet, patient is hungry now 8. Disposition-observation status, pending neurology recommendations
[2018-09-10] MEDS: SODIUM CHLORIDE 0.9% 1000ML 1,000 ML IV SCH (21:30)
[2018-09-10] MEDS ORDERED: PHYTONADIONE 10 MG/ML AMP SC STA (22:11)
--- NOTE | 2018-09-10 22:22 | Diagnostic Imaging Report ---
Exam: AP view of the chest Indication: Left leg swelling and rash Comparison: None available Findings: Emphysematous changes without consolidation. Nodular density projected over the right lung base is most likely a nipple shadow. Mild cardiomegaly. No pleural effusions or pneumothorax. The bones are demineralized. Degenerative changes of the bilateral shoulders. Impression: Emphysematous changes and mild cardiomegaly. No consolidative pneumonia or evidence of edema. Signed by: Dr. Carolina Mosher M.D. on 09/10/2018 10:18 PM
[2018-09-10] MEDS ORDERED: PIPER-TAZ 3.375 GM 50 ML IV STA (22:36)
[2018-09-10] MEDS ORDERED: VANCOMYCIN 1GM/NS 250 ML 250 ML IV STA (22:36)
[2018-09-10] MEDS ORDERED: AMIODARONE HCL 150MG 100 ML IV STA (23:16)
--- NOTE | 2018-09-10 23:18 | Diagnostic Imaging Report ---
EXAM: Ultrasound lower extremity venous Doppler INDICATION: Left leg redness and swelling COMPARISON: None TECHNIQUE: Romero scale, color Doppler and spectral waveform analysis of the left lower extremity deep venous system was performed. FINDINGS: LEFT LOWER EXTREMITY: Normal waveform response to augmentation. Common Femoral: Fully compressible with normal spontaneous waveforms. Femoral: Fully compressible with normal spontaneous waveforms. Proximal Greater Saphenous: Fully compressible. Popliteal: Fully compressible with normal spontaneous waveforms. IMPRESSION: No evidence of deep venous thrombosis above the left calf. Signed by: Dr. Carolina Mosher M.D. on 09/10/2018 11:14 PM
[2018-09-11] VITALS (20 sets, daily range): BP systolic 99–147; BP diastolic 61–103
[2018-09-11] MEDS ORDERED: ASPIRIN 81 MG CHEW TAB PO ONE
[2018-09-11] MEDS: DILTIAZEM HCL 100 ML IV SCH (00:15)
[2018-09-11] MEDS ORDERED: OMEPRAZOLE40 MG (02:12)
[2018-09-11] MEDS ORDERED: NUEDEXTA 20-101 EACH (02:12)
[2018-09-11] MEDS ORDERED: TRIMETHOBENZAM300 MG (02:12)
--- OUTSIDE RECORDS SUMMARY | 2018-09-11 02:13 | XMS REPORT | Clinical Summary ---
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); Primary hypothyroidism 04/21/2018 Refill Sports Medicine Ricci Rush, RAIZA 03/26/2018 Orders Only Ike Shell MD 03/23/2018 Refill Sports Medicine Nelida Curry [place] 03/19/2018 Office Visit Sports Ike Gold MD [...] MD 12/03/2017 Telephone Sports Medicine Nelida Curry, [place] 11/23/2017 Office Visit Ike Shell MD Dementia [...] fibrillation; Chronic pain of right ankle after 09/10/2017 Immunizations Name Dates Previously Given Next Due [...] 09/15/2018 [place] [address] [place] [address] 09/16/2018 Office Visit Neurology Sapna Brown MD [address] [facility] [address] [place] [id number] Health Maintenance Due Date Last Done [...] procedure are in the results section. after 09/10/2017 Results * Urinalysis, automated with microscopy (08/02/2018 11:49 AM) Only the most recent of 3 results within the time period is included. Color, UA YELLOW YELLOW [facility] Appearance TURBID (A) CLEAR [facility] Specific gravity, urine 1.025 1.001 - 1.035 [facility] pH, urine 5.5 5.0 - 8.0 [facility] [place] Glucose, urine NEGATIVE NEGATIVE [facility] Bilirubin, UA NEGATIVE NEGATIVE [facility] Ketones, UA NEGATIVE NEGATIVE [facility] Occult blood, urine NEGATIVE NEGATIVE [facility] Protein, UA NEGATIVE NEGATIVE [facility] Nitrite, UA NEGATIVE NEGATIVE [facility] Leukocyte esterase, UA 3+ (A) NEGATIVE [facility] [place] WBC, UA > OR=60 (A) < OR=5 /HPF [facility] [place] RBC, UA 0-2 < OR=2 /HPF [facility] Squamous epithelial 6-10 (A) < OR=5 /HPF [facility] cells, [facility]A [facility] Bacteria, UA MANY (A) NONE SEEN /HPF [facility] Hyaline casts, UA 0-1 (A) NONE SEEN /LPF [facility] [employer] [place] Comment FEW MUCOUS THREADS [facility] Specimen Urine Narrative Performed At FASTING:NO [facility] FASTING: NO Other Results Text Performing Organization Information: Site ID: [id number] Name: [facility] Address: [address] [place] [id number] Director: Kathy Damon Performing Organization Address [facility] Phone Number [employer] [facility] [address] [place] [phone] * Urine culture (08/02/2018 11:49 AM) Only the most recent of 3 results within the time period is included. Urine culture SEE NOTE (A) [facility] Comment: [facility] CULTURE, URINE, ROUTINE MICRO NUMBER:[id number] TEST STATUS: FINAL SPECIMEN SOURCE: URINE SPECIMEN [...] Performing Organization Information: Site ID: [id number] Name: [facility] Address: [address] [place] [id number] Director: Kathy Damon Performing Organization Address [facility] Phone Number [employer] [place] [address] [place] [phone] * Microscopic Examination (06/17/2018 3:28 PM) WBC, UA 6-10 (A) 0 - 5 /hpf [facility] RBC, UA 0-2 0 - 2 /hpf [facility] Epithelial cells (non 0-10 0 - 10 /hpf [facility] renal) Mucus, UA Present Not Estab. [facility] Bacteria, UA Few None seen/Few [facility] Narrative Performed At Performed at:01 - [facility] [address] [place], [id number] Credit Cashier: Ranjit Tracey MD, Phone:[phone] Performing Organization Address [facility] Phone Number [facility] * [place] Modified Barium [...] to Speech Pathology report for further details. [facility]-[id number] Procedure Note Interface, Radiology Results Incoming - [...] to Speech Pathology report for further details. [facility]-[id number] Performing Organization Address [facility]/State/Zipcode Phone Number SARAH CONLEY [address] [place] [address] after 09/10/2017 Insurance Payer Benefit Subscriber ID Type Phone Address Plan / Group [facility] xxxxxxxxxxx Home:
[2018-09-11 03:55] LABS: CREATINE KINASE 145 IU/L (29-168)
[2018-09-11 04:13] LABS: CREATINE KINASE MB < 1.00 ng/mL (0-4.3)
[2018-09-11 07:06] LABS: BASOPHILS % 0.2 % (0.0-1.0); EOSINOPHILS % 0.1 % (0.0-6.0); HEMATOCRIT 34.7 % (34.2-44.1); HEMOGLOBIN 10.5 g/dL (12.0-16.0); LYMPHOCYTES # (AUTO) 0.9 (1.0-3.2); LYMPHOCYTES % 8.4 % (18.0-39.1); MEAN CORPUSCULAR HEMOGLOBIN 26.1 pg (28-32); MEAN CORPUSCULAR HGB CONC 30.3 g/dL (31-35); MEAN CORPUSCULAR VOLUME 86.3 fL (81-99); MONOCYTES # (AUTO) 0.5 (0.2-0.8); MONOCYTES % 4.7 % (4.4-11.3); NEUTROPHILS # (AUTO) 9.3 (2.1-6.9); NEUTROPHILS % 86.1 % (38.7-80.0); PLATELET COUNT 127 x10e3/uL (140-360); RED BLOOD COUNT 4.02 x10e6/uL (3.6-5.1); RED CELL DISTRIBUTION WIDTH 17.6 % (11.7-14.4)
[2018-09-11 07:23] LABS: ALBUMIN 2.4 g/dL (3.5-5.0); ALBUMIN/GLOBULIN RATIO 0.7 (0.8-2.0); ANION GAP 10.6 mmol/L (8-16); CALCIUM 8.2 mg/dL (8.4-10.2); CREATININE, SERUM 0.94 mg/dL (0.57-1.11); POTASSIUM 3.6 mmol/L (3.5-5.1)
[2018-09-11 07:47] LABS: INR 6.21
[2018-09-11 07:48] LABS: PROTHROMBIN TIME 58.7 seconds (11.9-14.5)
[2018-09-11 07:53] LABS: CREATINE KINASE MB 1.6 ng/mL (0-5.0)
[2018-09-11] MEDS ORDERED: PHYTONADIONE 10MG/ML 1 ML ONE (08:08)
[2018-09-11] MEDS: SODIUM CHLORIDE 0.9% 1000ML 1,000 ML IV SCH ×4 (11:55→21:12)
[2018-09-11 16:07] LABS: CREATINE KINASE MB 1.1 ng/mL (0-5.0)
[2018-09-11] MEDS: METOPROLOL TARTRATE 25 MG TAB PO SCH (16:21)
--- NOTE | 2018-09-11 20:16 | Consultation ---
DATE OF CONSULTATION: September 11, 2018 CARDIOLOGY CONSULTATION CONSULTING PHYSICIAN: Dr. Radha Pittman. REASON FOR CONSULTATION: Atrial fibrillation. HISTORY OF PRESENT ILLNESS: Ms. Castro is an 83-year-old female, who is nonverbal and is not able to provide most of her medical history; however, from information obtained from her nurse, patient was brought in from a freestanding ER due to supratherapeutic INR and also left lower extremity cellulitis and swelling and also AFib with RVR. She does have a pertinent past medical history of atrial fibrillation and has been anticoagulated with warfarin. It is reported that the patient resides at home with her family and has some home health services that do assist in her care. PAST MEDICAL HISTORY: Unable to obtain. PERSONAL HISTORY: Lives at home. REVIEW OF SYSTEMS: Unable to obtain. PHYSICAL EXAMINATION GENERAL: Resting comfortably in bed, does not appear to be in any acute distress, resting comfortably. VITAL SIGNS: No temperature recorded, pulse 96, respiratory rate 16, blood pressure 122/85, oxygen saturation 99 on 4 liters nasal cannula. NECK: Supple. No JVD noted. CARDIOVASCULAR: Irregular rate and rhythm. S1 and S2 auscultated. No S3 or S4 noted. LUNGS: Diminished breath sounds anterior and posterior lower lobes, otherwise clear to auscultation. ABDOMEN: Rounded, soft, and nontender. EXTREMITIES: 3+ pitting edema in left lower extremity. Unable to palpate pulses. Right lower extremity, no edema and 2+ pedal pulses. CARDIOVASCULAR MEDICATION: Diltiazem IV titrate. LABORATORY DATA: WBC 10.75, hemoglobin 10.5, hematocrit 34.7, and platelets 127. Sodium 151, potassium 3.6, BUN 48, creatinine 0.94. Lactic acid 17.6. AST 26, ALT 23, troponin 0.016, CK-MB 1.60, creatinine kinase 92. Chest x-ray with emphysematous changes and mild cardiomegaly noted. Left lower extremity venous Doppler with no evidence of DVT noted. TELEMETRY: AFib with RVR. ASSESSMENT 1. Left lower extremity cellulitis. 2. Atrial fibrillation with rapid ventricular response. 3. History of Parkinson's 4. Tremor. 5. Debility. RECOMMENDATIONS: Antimicrobial therapy per primary team. Obtain echocardiogram, recommendations will follow. Hold anticoagulation at this point given that INR was 6.20 this morning. Vitamin K given. Monitor for any evidence of bleeding closely. Maintain on telemetry at all times. Medications adjusted. Patient will need at least a beta ayaka. We will continue to monitor this patient very closely. Thank you Dr. Pittman. Dictated by: Eunice Wiley NP Job#: [id number] NADEEM
[2018-09-11] MEDS ORDERED: LATANOPROST(OPTH) 2.5 ML BTL OP SCH (21:00)
[2018-09-11] MEDS: PIPER-TAZ 3.375 GM 50 ML IV SCH (21:21)
[2018-09-11] MEDS: VANCOMYCIN 750MG/NS 150ML IVPB 150 ML IV SCH (22:19)
[2018-09-11] MEDS ORDERED: AZOPT10 ML OU (22:22)
[2018-09-11] MEDS ORDERED: TIGAN300 MG PO (22:22)
[2018-09-11] MEDS ORDERED: SYNTHROID50 MCG PO (22:22)
[2018-09-11] MEDS ORDERED: PAXIL20 MG PO (22:25)
[2018-09-11] MEDS ORDERED: PROBIOTIC & AC1 EACH PO (22:40)
[2018-09-11] MEDS ORDERED: NUEDEXTA 20-101 EACH PO (22:40)
[2018-09-11] MEDS ORDERED: NUPLAZID PO (22:40)
[2018-09-11] MEDS ORDERED: LORATADINE10 MG PO (22:40)
[2018-09-11] MEDS ORDERED: KLONOPIN0.5 MG PO (22:40)
[2018-09-11] MEDS ORDERED: XALATAN2.5 ML OU (22:40)
[2018-09-11] MEDS ORDERED: POLYETHYLENE GL17 GM PO (22:40)
[2018-09-11] MEDS ORDERED: B COMPLEX1 EACH PO (22:40)
[2018-09-11] MEDS ORDERED: DOCUSATE SODIU100 MG PO (22:40)
[2018-09-11] MEDS ORDERED: SINEMET 25-1001 EACH PO (22:40)
[2018-09-11] MEDS ORDERED: COUMADIN2 MG PO (22:40)
[2018-09-11] MEDS ORDERED: OMEPRAZOLE40 MG PO (22:40)
[2018-09-11] MEDS ORDERED: QUETIAPINE FUMA25 MG PO (22:40)
[2018-09-11] MEDS ORDERED: ZOFRAN ODT4 MG PO (22:40)
[2018-09-11] MEDS ORDERED: ONDANSETRON HCL 4 MG ORAL DISINTEGRATING TAB PO PRN (22:45)
[2018-09-11] MEDS: CARBIDOPA/LEVODOPA 25/100 TAB PO SCH (23:29)
[2018-09-12] VITALS (8 sets, daily range): BP systolic 93–133; BP diastolic 62–94
[2018-09-12] MEDS: DILTIAZEM HCL 100 ML IV SCH (00:15)
[2018-09-12 05:04] LABS: BASOPHILS % 0.3 % (0.0-1.0); EOSINOPHILS # (AUTO) 0.1 (0.0-0.4); EOSINOPHILS % 1.1 % (0.0-6.0); HEMATOCRIT 32.3 % (34.2-44.1); HEMOGLOBIN 9.9 g/dL (12.0-16.0); LYMPHOCYTES % 14.1 % (18.0-39.1); MEAN CORPUSCULAR HEMOGLOBIN 26.1 pg (28-32); MEAN CORPUSCULAR HGB CONC 30.7 g/dL (31-35); MONOCYTES # (AUTO) 0.4 (0.2-0.8); MONOCYTES % 5.4 % (4.4-11.3); NEUTROPHILS # (AUTO) 5.6 (2.1-6.9); NEUTROPHILS % 78.4 % (38.7-80.0); PLATELET COUNT 120 x10e3/uL (140-360); RED CELL DISTRIBUTION WIDTH 17.5 % (11.7-14.4)
[2018-09-12 05:19] LABS: INR 1.67
[2018-09-12 05:27] LABS: ALANINE AMINOTRANSFERASE 7 IU/L (0-55); ALBUMIN 2.2 g/dL (3.5-5.0); ALBUMIN/GLOBULIN RATIO 0.7 (0.8-2.0); ALKALINE PHOSPHATASE 62 IU/L (40-150); ANION GAP 13.6 mmol/L (8-16); BLOOD UREA NITROGEN 38 mg/dL (7-26); BUN/CREATININE RATIO 47 (6-25); CARBON DIOXIDE 20 mmol/L (22-29); CHLORIDE 122 mmol/L (98-107); CREATININE, SERUM 0.81 mg/dL (0.57-1.11); EST GLOMERULAR FILTRATION RATE > 60 ML/MIN (60-); GLUCOSE 94 mg/dL (74-118); MAGNESIUM 1.8 MG/DL (1.3-2.1); POTASSIUM 3.6 mmol/L (3.5-5.1); SODIUM 152 mmol/L (136-145)
[2018-09-12] MEDS: PIPER-TAZ 3.375 GM 50 ML IV SCH ×3 (05:40→20:49)
[2018-09-12] MEDS: SODIUM CHLORIDE 0.9% 1000ML 1,000 ML IV SCH ×3 (05:40→10:45)
[2018-09-12] MEDS: LEVOTHYROXINE SODIUM 50 MCG TAB PO SCH (05:41)
[2018-09-12] MEDS: TIGAN PO SCH ×3 (08:00→16:29)
[2018-09-12] MEDS ORDERED: TRIMETHOBENZAMIDE HCL 300 MG PO SCH (08:00)
[2018-09-12] MEDS ORDERED: BRINZOLAMIDE 1% OPTH SUSP 10 ML BTL OP SCH (09:00)
[2018-09-12] MEDS: POLYETHYLENE GLYCOL 3350 17 GM PACK PO SCH (09:00)
[2018-09-12] MEDS ORDERED: DEXTROMETHORPHAN HBR PO SCH (09:00)
[2018-09-12] MEDS: DOCUSATE SODIUM 100 MG CAP PO SCH (09:00)
[2018-09-12] MEDS: LACTOBACILLUS ACIDOPHILUS CAPSULE PO SCH (09:00)
[2018-09-12] MEDS: CARBIDOPA/LEVODOPA 25/100 TAB PO SCH ×4 (09:00→21:46)
[2018-09-12] MEDS: QUETIAPINE FUMARATE 25 MG TAB PO SCH ×2 (09:00→17:10)
[2018-09-12] MEDS: MULTIVITAMINS/MINERALS TAB PO SCH (09:00)
[2018-09-12] MEDS: QUINIDINE PO SCH ×2 (09:00→17:08)
[2018-09-12] MEDS ORDERED: QUINIDINE PO SCH (09:00)
[2018-09-12] MEDS: PAROXETINE HCL 20 MG TAB PO SCH (09:00)
[2018-09-12] MEDS ORDERED: VITAMIN B COMPLEX PO SCH (09:00)
[2018-09-12] MEDS: VANCOMYCIN 750MG/NS 150ML IVPB 150 ML IV SCH ×2 (09:00→21:00)
[2018-09-12] MEDS ORDERED: [UNRECOGNIZED DRUG - OTHER] PO SCH (09:00)
[2018-09-12] MEDS: PANTOPRAZOLE SOD 40 MG TABEC PO SCH ×2 (09:00→17:09)
[2018-09-12] MEDS: LORATADINE 10 MG TAB PO SCH (09:00)
[2018-09-12] MEDS: BRINZOLAMIDE 1% OPTH SUSP 10 ML BTL OU SCH ×2 (09:00→17:08)
[2018-09-12] MEDS: [UNRECOGNIZED DRUG - OTHER] PO SCH ×2 (09:00→17:08)
[2018-09-12] MEDS: METOPROLOL TARTRATE 25 MG TAB PO SCH ×2 (09:00→17:00)
[2018-09-12] MEDS ORDERED: POLYETHYLENE GLYCOL 3350 17 GM PACK PO SCH (09:00)
[2018-09-12] MEDS ORDERED: NUPLAZID 34 MG PO SCH (09:00)
[2018-09-12] MEDS: DEXTROMETHORPHAN HBR PO SCH ×2 (09:00→17:08)
[2018-09-12] MEDS: NUPLAZID 34 MG PO SCH (09:00)
--- NOTE | 2018-09-12 11:42 | Progress Note ---
DATE: September 12, 2018 CARDIOLOGY PROGRESS NOTE SUBJECTIVE: Patient is not able to report much; however; caregiver reports that she was able to speak to her this morning and she has no new complaints; however, has a sacral wound that seems to be bothering her and has not been able to take her Parkinson's medication. OBJECTIVE VITAL SIGNS: Temperature 99.0, pulse 95, respiratory rate 18, blood pressure 129/65, oxygen saturation 98% on 2 liters nasal cannula. GENERAL: Awake and alert, unable to answer questions. NECK: Supple. No JVD noted. CARDIOVASCULAR: Irregular rate and rhythm. S1 and S2 auscultated. No S4 or S3 noted. LUNGS: Diminished breath sounds throughout especially in the lower lobes, otherwise clear to auscultation. ABDOMEN: Soft, nontender. EXTREMITIES: Lower extremities; 3+ pitting edema. Left lower extremity red and warm to the touch, unable to palpate pedal pulses on the left. CARDIOVASCULAR MEDICATIONS 1. Diltiazem IV titrate. 2. Metoprolol 12.5 mg p.o. b.i.d. LABS: WBC 7.17, hemoglobin 9.9, hematocrit 32.3, platelets 120. Sodium 152, potassium 3.6, BUN 38, creatinine 0.81. TELEMETRY: Atrial fibrillation, rate controlled. ASSESSMENT 1. Left lower extremity cellulitis. 2. Atrial fibrillation with rapid ventricular response, now that is improved. 3. History of Parkinson's. 4. Tremor. 5. Debility. 6. Sacral wound. 7. Clinical dehydration. RECOMMENDATIONS: Continue with the above-listed cardiac medications. Initiate IV fluids. Hold anticoagulation given supratherapeutic INR on admission requiring vitamin K administration. Echocardiogram has been completed, awaiting review, recommendations will follow. Thank you. We will continue to participate in this patient's care. Dictated by: Eunice Wiley NP Job#: [id number]
[2018-09-12] MEDS: CLONAZEPAM 0.5 MG TAB PO SCH (16:30)
[2018-09-12] MEDS: APIXAB 2.5 MG TABLET PO SCH (17:08)
[2018-09-12] MEDS ORDERED: LATANOPROST(OPTH) 2.5 ML BTL OU SCH (21:00)
[2018-09-12] MEDS ORDERED: VANCOMYCIN 750MG/NS 150ML IVPB 150 ML IV SCH (21:15)
[2018-09-13] VITALS (7 sets, daily range): BP systolic 125–130; BP diastolic 86–109
[2018-09-13] MEDS: DILTIAZEM HCL 100 ML IV SCH (00:15)
[2018-09-13] MEDS: PIPER-TAZ 3.375 GM 50 ML IV SCH ×3 (04:32→17:59)
[2018-09-13 04:50] LABS: BASOPHILS % 0.2 % (0.0-1.0); EOSINOPHILS # (AUTO) 0.1 (0.0-0.4); EOSINOPHILS % 2.2 % (0.0-6.0); HEMATOCRIT 33.5 % (34.2-44.1); LYMPHOCYTES # (AUTO) 1.2 (1.0-3.2); LYMPHOCYTES % 22.5 % (18.0-39.1); MEAN CORPUSCULAR HEMOGLOBIN 25.8 pg (28-32); MEAN CORPUSCULAR HGB CONC 29.9 g/dL (31-35); MEAN CORPUSCULAR VOLUME 86.6 fL (81-99); MONOCYTES # (AUTO) 0.3 (0.2-0.8); MONOCYTES % 5.1 % (4.4-11.3); NEUTROPHILS # (AUTO) 3.8 (2.1-6.9); NEUTROPHILS % 69.3 % (38.7-80.0); PLATELET COUNT 125 x10e3/uL (140-360); RED BLOOD COUNT 3.87 x10e6/uL (3.6-5.1); RED CELL DISTRIBUTION WIDTH 17.7 % (11.7-14.4)
[2018-09-13] MEDS ORDERED: VANCOMYCIN 750MG/NS 150ML IVPB 150 ML IV SCH (05:00)
[2018-09-13 05:05] LABS: ANION GAP 13.8 mmol/L (8-16); BLOOD UREA NITROGEN 35 mg/dL (7-26); BUN/CREATININE RATIO 41 (6-25); CARBON DIOXIDE 22 mmol/L (22-29); CHLORIDE 122 mmol/L (98-107); CREATININE, SERUM 0.86 mg/dL (0.57-1.11); EST GLOMERULAR FILTRATION RATE > 60 ML/MIN (60-); GLUCOSE 96 mg/dL (74-118); POTASSIUM 3.8 mmol/L (3.5-5.1); SODIUM 154 mmol/L (136-145)
[2018-09-13] MEDS: LEVOTHYROXINE SODIUM 50 MCG TAB PO SCH (05:38)
[2018-09-13] MEDS: SODIUM CHLORIDE 0.9% 1000ML 1,000 ML IV SCH (07:24)
[2018-09-13] MEDS: TIGAN PO SCH ×3 (08:00→17:00)
[2018-09-13] MEDS: BRINZOLAMIDE 1% OPTH SUSP 10 ML BTL OU SCH ×2 (09:55→17:21)
[2018-09-13] MEDS: DEXTROMETHORPHAN HBR PO SCH ×2 (10:00→17:32)
[2018-09-13] MEDS: [UNRECOGNIZED DRUG - OTHER] PO SCH ×2 (10:00→17:32)
[2018-09-13] MEDS: QUINIDINE PO SCH ×2 (10:00→17:32)
[2018-09-13] MEDS: NUPLAZID 34 MG PO SCH (10:01)
[2018-09-13] MEDS: MULTIVITAMINS/MINERALS TAB PO SCH (10:02)
[2018-09-13] MEDS: DOCUSATE SODIUM 100 MG CAP PO SCH (10:02)
[2018-09-13] MEDS: QUETIAPINE FUMARATE 25 MG TAB PO SCH ×2 (10:02→17:39)
[2018-09-13] MEDS: PANTOPRAZOLE SOD 40 MG TABEC PO SCH ×2 (10:02→17:24)
[2018-09-13] MEDS: LORATADINE 10 MG TAB PO SCH (10:03)
[2018-09-13] MEDS: PAROXETINE HCL 20 MG TAB PO SCH (10:03)
[2018-09-13] MEDS: APIXAB 2.5 MG TABLET PO SCH ×2 (10:03→17:23)
[2018-09-13] MEDS: LACTOBACILLUS ACIDOPHILUS CAPSULE PO SCH (10:04)
[2018-09-13] MEDS: CARBIDOPA/LEVODOPA 25/100 TAB PO SCH ×3 (10:04→17:24)
[2018-09-13] MEDS: METOPROLOL TARTRATE 25 MG TAB PO SCH ×2 (10:30→17:58)
[2018-09-13] MEDS: POLYETHYLENE GLYCOL 3350 17 GM PACK PO SCH (10:45)
--- NOTE | 2018-09-13 14:36 | Progress Note ---
DATE: September 13, 2018 CARDIOLOGY PROGRESS NOTE SUBJECTIVE: No events overnight. Caregiver at bedside states that the patient had a good morning, and was able to eat a few bites of her breakfast and drink some juice. Unable to obtain a review of systems. OBJECTIVE VITALS: Temperature is 97.5, heart rate is 92, respirations are 16, oxygen saturation 98% on 2 L nasal cannula, blood pressure is 125/101. GENERAL: She is an elderly woman awake and alert, and unable to answer questions. NECK: No jugular venous distention. CARDIOVASCULAR: She is irregularly irregular. Normal rate. Normal S1 and S2. LUNGS: Diminished breath sounds at bilateral bases. ABDOMEN: Soft and nontender. EXTREMITIES: Pitting edema. VASCULAR: Diminished pulses. NEUROLOGIC: The patient has tremors. MEDICATIONS: Reviewed and noted. LABORATORY DATA: Reviewed and noted. Telemetry monitoring revealed atrial fibrillation with controlled ventricular response. IMPRESSION AND RECOMMENDATIONS 1. Atrial fibrillation. 2. Cellulitis. 3. History of Parkinson disease. 4. Debility. 5. Sacral wound. 6. Altered mental status. RECOMMENDATIONS: Patient's heart rate is under control currently. She has been weaned off the diltiazem drip, and can increase metoprolol p.o. as tolerated. She is currently on Eliquis 2.5 mg b.i.d. for anticoagulation needs. She is otherwise stable from a cardiovascular standpoint, and will continue to monitor closely. Left ventricular function appears to be around 50% to 55% on a limited echocardiogram performed. Job#: [id number] SWEETIE
[2018-09-13] MEDS: CLONAZEPAM 0.5 MG TAB PO SCH (17:39)
[2018-09-14] MEDS ORDERED: NYSTATIN 100,000 UNITS/GM CRM 30GM TUBE TOP SCH (09:00)
[2018-09-14] MEDS ORDERED: BALSAM PERU/CASTOR OIL 5 GM OINT...G. TP SCH (09:00)
--- NOTE | 2018-11-06 03:56 | Discharge Summary ---
CHIEF COMPLAINT: Progressive swelling, left lower leg. FINAL DIAGNOSES: 1. Cellulitis, lower extremity. 2. Parkinson's. 3. Cachexia. 4. Debility. DISPOSITION: [facility]. HISTORY AND HOSPITAL COURSE: An 83-year-old female with known history of atrial fibrillation, Parkinson's disease, dementia and peripheral vascular disease, bedbound, brought to the ER with a several day history of progressive swelling and redness in the left lower extremity. No fever or chills. No other complaints. While she was being evaluated in the emergency room, she was noted to have the left lower extremity to be solid red from the knee down, warm to touch. Further care was given in the ER and admission was made for swelling and redness of the left lower leg, cellulitis of the left lower leg, dementia, parkinsonism, and will be planned for blood cultures, start IV antibiotic care. Coumadin will be on hold. In the ER, she was admitted to [facility]. She was being maintained on a cardiac diet. Her daily medications were being given. She was started on Zosyn 3.375, also started her on vancomycin. Daily medications were continued. Laboratory studies were showing sodium of 152, potassium was 3.6. Kidney functions; BUN 38, creatinine 0.81 and glucose 94. CBC; hemoglobin 9.9, white blood cell count 7000. Further monitoring was underway on a daily basis. She will be requiring further monitoring and management of her IV antibiotics, management of her other conditions as well. Case management was requested to see the patient to assist in transfer to [facility]. She was accepted in that facility and she was transferred there on 09/13/2018 for continuation of care. She was noted to initially have a hypertherapeutic INR. It was noted be greater than 8. This was the reason for her pro-time to be on hold. EKGs were showing atrial fibrillation with a rapid ventricular response. Further EKG shows atrial flutter with a variable AV block. Echocardiogram; ejection fraction between 40% and 45%. Her lower extremity evaluation with Doppler left was showing that all veins were compressible and blood flow with an augmentation. She was released to [facility] for continuation of care. She will be continuing on her MARs. Continue to monitor her INR status. She will slowly be reinitiated with her Coumadin once INR normalizes. I will be monitoring her care at that facility on a daily basis and adjustments will be made to her protocols as needed. Dictated By: KUMAR Mckinney Job#: [id number] GARay
== END 2018-09-13 19:06 | DRG 602 ==
LOC: FSED 21:07 → ERHOLD 09-11 00:46 → IMCU 09-11 02:30
DX: L03.116 Cellulitis of left lower limb (principal); L89.153 Pressure ulcer of sacral region, stage 3; I47.2 Ventricular tachycardia; R64 Cachexia; Z68.1 Body mass index [BMI] 19.9 or less, adult; I48.91 Unspecified atrial fibrillation; E86.0 Dehydration; G20 Parkinson's disease; F02.80 Dementia in other diseases classified elsewhere, unspecified severity, without behavioral disturbance, psychotic disturbance, mood disturbance, and anxiety; R53.81 Other malaise; R79.1 Abnormal coagulation profile; Z79.01 Long term (current) use of anticoagulants; I08.2 Rheumatic disorders of both aortic and tricuspid valves; I73.9 Peripheral vascular disease, unspecified; H40.9 Unspecified glaucoma; Z66 Do not resuscitate; Z74.01 Bed confinement status
CPT/HCPCS: 36415; 71045; 80048; 80053; 80202; 82550; 82553; 83605; 83735; 84484; 85025; 85610; 87040; 93005; 93306; 93971; 96365; 96366; 99284; J2543; J3430; J7030